=== PATIENT | female | born 1945 | race Caucasian/White ===

== ENCOUNTER → 2016-11-30 | Outpatient (CLI) | payer OTHER ==
[~2016-11-30] MED LIST: ASPEC325 PO; CHOL100027 PO; ESTR0.3T PO; FENO145T26 PO; FSMUNK PO; GLC/500 PO; INSDGI SC; LISI-725 PO; NSP/1000 PO
[2016-11-30 12:38] LABS: HEMATOCRIT 42.6 % (37-47); MEAN CELL VOLUME 88.2 fL (80-100); MEAN CORPUSCULAR HEMOGLOBIN 31.1 pg (25-34); MEAN CORPUSCULAR HGB CONC 35.2 g/dl (32-36); MEAN PLATELET VOLUME 11.4 fL (7.4-10.4); PLATELET COUNT 273 K/uL (130-400); RED BLOOD COUNT 4.83 M/uL (4.2-5.4); WHITE BLOOD COUNT 5.21 K/uL (4.8-10.8)
[2016-11-30 12:52] LABS: ALT/SGPT 21 U/L (12-78); AST/SGOT 15 U/L (15-37); BLOOD UREA NITROGEN 20 mg/dl (7-18); BUN/CREATININE RATIO 18.6 (10-20); CALCIUM 9.6 mg/dl (8.5-10.1); CARBON DIOXIDE 28 mmol/L (21-32); CHLORIDE 108 mmol/L (98-107); GLUCOSE 89 mg/dl (70-99); POTASSIUM 3.7 mmol/L (3.5-5.1); SODIUM 143 mmol/L (136-145)
[2016-11-30 13:03] LABS: ALB/GLOB RATIO 1.1 (0.9-2); ALKALINE PHOSPHATASE 44 U/L (45-117); CHOLESTEROL 112 mg/dl (0-200); CHOLESTEROL/HDL RATIO 1.9; HDL CHOLESTEROL 58 mg/dl; LDL CHOLESTEROL CALCULATED 42 mg/dl; TRIGLYCERIDES 59 mg/dl (0-150); VERY LOW DENSITY LIPOPROT CALC 12 mg/dl
[2016-11-30 13:32] LABS: ESTIMATED AVERAGE GLUCOSE 103 mg/dl; HA1C FLAG Normal (Normal)
== END | disposition home or self-care (01) ==
LOC: C.LABBFT 09:36
PROVIDERS: ATTEND Internal Medicine
DX: E11.9 Type 2 diabetes mellitus without complications (principal)

== ENCOUNTER → 2017-10-08 | Outpatient (CLI) | payer OTHER ==
--- NOTE | 2017-10-08 15:37 | MAMMOGRAPHY REPORT ---
BILATERAL DIGITAL SCREENING MAMMOGRAM WITH CAD: 10/08/2017 CLINICAL HISTORY: Routine screening. Patient has no complaints. TECHNIQUE: Current study was also evaluated with a Computer Aided Detection (CAD) system. Bilateral CC and MLO views were obtained. COMPARISON: Comparison is made to exams dated: 10/02/2016 mammogram, 04/03/2016 ultrasound, 04/03/2016 ma mmogram, 09/20/2015 mammogram, 08/24/2014 mammogram, and 08/11/2013 mammogram - [facility] enter. BREAST COMPOSITION: There are scattered areas of fibroglandular density in both breasts. FINDINGS: No suspicious masses, calcifications, or areas of architectural distortion are noted in ei ther breast. There has been no significant interval change compared to prior exams. Scattered bilater al benign-appearing calcifications are not significantly changed. Small round 4 mm mass in the left lower outer quadrant is smaller compared to the 2016 exam and was shown to represent a benign cyst on a prior ultrasound exam. IMPRESSION: ACR BI-RADS CATEGORY 2: BENIGN There is no mammographic evidence of malignancy. A 1 year screening mammogram is recommended. The pa tient will receive written notification of the results. Approximately 10% of breast cancers are not detected with mammography. A negative mammographic report should not delay biopsy if a clinically suggestive mass is present. Anusha Mcfarlane M.D. /:10/08/2017 13:56:16 [employer] Operator: Romy GRANADOS)(Roxanna), [facility] letter sent: Normal 1/2 BI-RADS Code: ACR BI-RADS Category 2: Benign
== END | disposition home or self-care (01) ==
LOC: C.MAMM 08:54
PROVIDERS: ATTEND Physician Assistant
DX: Z12.31 Encounter for screening mammogram for malignant neoplasm of breast (principal)

== ENCOUNTER 2022-12-28 16:33 | Inpatient (IN) ==
--- NOTE | 2022-12-28 16:42 | ED Triage Note ---
Date of Service December 28, 2022 History of Present Illness This patient was briefly evaluated while in triage. An abbreviated physical exam was performed. This patient is a 77-year-old Female with past medical history of type 2 DM who presents to the ED for evaluation of tachycardia. Was at PCP office for a cough and was found to have fast, irregular pulse. Coughing for the past week, feeling a bit short of breath with this. Denies chest pain, nausea, vomiting, dizziness, syncope. No fevers or chills. Physical Exam CONSTITUTIONAL: No acute distress. Well appearing. RESPIRATORY: Nonlabored breathing. Clear to auscultation bilaterally. Equal expansion bilaterally. CARDIOVASCULAR: Tachycardic rate, irregular rhythm with no murmurs, rubs or gallops. Normal peripheral perfusion. No peripheral edema. GASTROINTESTINAL: Soft, nontender MUSCULOSKELETAL: No calf tenderness or swelling NEUROLOGIC: Alert and oriented X 4 with normal affect. Initial orders for labs and / or imaging were placed and patient was placed in the waiting area until a bed is available. Please see further documentation for the full ED course. MDM / Impression Impression Impression: Pulmonary embolism, New onset atrial fibrillation : Pulmonary embolism Qualifiers: Pulmonary embolism type: unspecified Chronicity: acute Acute cor pulmonale presence: without acute cor pulmonale Qualified Code(s): I26.99 - Other pulmonary embolism without acute cor pulmonale
[2022-12-28] MEDS ORDERED: ASPIRIN CHEW 324 MG PO STA (16:56)
[2022-12-28] MEDS ORDERED: dilTIAZem HCl 5 MG/ML 5 ML VIAL IV ONE (16:56)
[2022-12-28] MEDS ORDERED: SODIUM CHLORIDE 0.9% 1000ML 1,000 ML IV STA (16:56)
[2022-12-28] MEDS ORDERED: dilTIAZem HCl 5 MG/ML 5 ML VIAL IV STA (16:56)
[2022-12-28] MEDS ORDERED: STAT IV Infusion **Titration per Protocol STA (17:00)
[2022-12-28] MEDS ORDERED: dilTIAZem HCL 125 MG in DEXTROSE 5% 100 ML IV SCH (17:00)
[2022-12-28 17:23] LABS: Basophils # (auto) 0.06 K/uL (0-0.2); Basophils % (auto) 0.8 %; Eosinophils # (auto) 0.14 K/uL (0-0.50); Eosinophils % (auto) 1.8 %; Hematocrit (blood only) 36.3 % (37.0-47.0); Hemoglobin 11.4 g/dl (12.0-16.0); Immature Granulocytes # (auto) 0.02 K/uL (0.01-0.20); Immature Granulocytes % (auto) 0.3 %; Lymphocytes % (auto) 19.2 %; Mean Corpuscular Hemoglobin 25.1 pg (25.0-34.0); Mean Corpuscular Hgb Conc 31.4 g/dL (32.0-36.0); Mean Corpuscular Volume 79.8 fL (80.0-100.0); Mean Platelet Volume 10.9 fL (9.4-12.4); Monocytes # (auto) 0.91 K/uL (0.11-0.59); Monocytes % (auto) 11.7 %; Neutrophils # (auto) 5.18 K/uL (1.40-6.50); Neutrophils % (auto) 66.2 %; Platelet Count 385 K/uL (130-400); RDW Coefficient of Variation 14.4 % (11.5-14.5); RDW Standard Deviation 41.9 fL (36.4-46.3); Red Blood Count 4.55 M/uL (4.20-5.40); White Blood Count 7.81 K/ul (4.8-10.8)
--- NOTE | 2022-12-28 17:28 | XRay Report ---
SINGLE VIEW CHEST CLINICAL HISTORY: Cough and dyspnea. FINDINGS: An AP, portable, upright chest radiograph is compared to study dated 08/03/2014. The heart is enlarged noting atherosclerotic calcification of the thoracic aorta. The pulmonary vasculature is no ncongested. Chronic interstitial thickening is similar to previous. The lungs and pleural spaces are clear noting mild bibasilar atelectasis. No pneumothorax is seen. The skeletal structures are osteope nadira. The bony thorax is grossly intact. Arthritic change is seen in the shoulders. IMPRESSION: Cardiomegaly with now active disease in the chest. ACT 112: Negative or not required by law. Electronically signed by: Ricki Gonzales M.D. 12/28/2022 5:27 PM
[2022-12-28 17:38] LABS: Albumin Globulin Ratio 1.4 (0.9-2); Albumin Level 4.4 gm/dl (3.4-5.0); BUN Creatinine Ratio 17.1 (10-20); Bilirubin,Total 0.4 mg/dl (0.2-1.0); Calcium 9.3 mg/dl (8.5-10.1); Creatinine Clr Calc Pharmacy 43.4 ml/min; Est GFR (African American) 58.5 ml/min; Est GFR (Non-African American) 50.5 ml/min; Globulin 3.2 gm/dl (2.5-4.0); INR 1.1 (0.9-1.1); Partial Thromboplastin Ratio 0.9; Partial Thromboplastin Time 23.6 Seconds (21.0-31.0); Potassium 3.9 mmol/L (3.5-5.1); Prothrombin Time 11.8 Seconds (9.0-12.0); Total Protein 7.6 gm/dl (6.0-8.3)
[2022-12-28 17:45] LABS: Troponin I High Sensitivity 9.3 pg/ml (0-14)
[2022-12-28 17:57] LABS: Magnesium 1.7 mg/dl (1.7-2.4)
[2022-12-28] MEDS ORDERED: OPTIRAY 320 500ml IV ONE (17:58)
--- NOTE | 2022-12-28 18:15 | CT Scan Report ---
CT ANGIOGRAM OF THE CHEST CLINICAL HISTORY: Tachycardia. Cough COMPARISON STUDY: Chest x-ray dated 12/28/2022. TECHNIQUE: Following the IV administration of 113 cc of Optiray 320, CT angiogram of the chest was pe rformed from the upper abdomen to the thoracic inlet utilizing the pulmonary embolus protocol. Images are reviewed in the axial, sagittal, and coronal planes. 3-D MIPS images are created and assessed. T he patient's IV infiltrated during the examination. A dose lowering technique was utilized adhering to the principles of ALARA. CT DOSE: 319.37 mGy.cm FINDINGS: Thyroid: Normal in size and heterogeneous in attenuation. Thoracic aorta: There is mild atherosclerotic calcification of the thoracic aorta, which is normal in caliber and demonstrates standard 3-vessel arch anatomy. No dissection is seen. Pulmonary vasculature: The pulmonary trunk is normal in caliber. There is thrombus within the right u pper lobe pulmonary artery extending into segmental and subsegmental branches. There are also segment al and subsegmental pulmonary emboli within branches the right lower lobe pulmonary artery. Heart: The heart is enlarged and without pericardial effusion. There are coronary artery calcificatio ns. Lungs and pleural spaces: There is no airspace consolidation or pleural effusion. The trachea and ellen tral airways are clear. Foci of parenchymal scarring are seen throughout both lungs. A 3 mm right low er lobe pulmonary nodule is seen on image #133. A 3 mm nodule in the lingula seen on image #166. Thes e are of low suspicion. Mediastinum: There is no mediastinal lymphadenopathy. Mary: Clear. Axillae: There is no axillary lymphadenopathy. Upper abdomen: There is a small to moderate hiatal hernia. The liver is steatotic. Skeletal structures: The skeletal structures are osteopenic. Degenerative change and hyperkyphosis is noted in the thoracic spine. Arthritic change is seen in the shoulders. No lytic or blastic bony les ions are seen. Soft tissues: A left breast lesion is partially visualized and measures up to 11 mm as seen on image #122. IMPRESSION: 1. Right upper and lower lobe pulmonary emboli as above. 2. There is an 11 mm lesion partially visualized in the left breast. This is not well assessed by CT and mammographic correlation is recommended. 3. There is no airspace consolidation or pleural effusion. 4. Cardiomegaly. 5. Additional findings as above. ACT 112: Positive. There are findings on this exam that require communication between the performing entity and the patient following Patient Test Result Information Act ([place] Act 112) guidelines. Electronically signed by: Ricki Gonzales M.D. 12/28/2022 6:13 PM
[2022-12-28] MEDS ORDERED: Heparin IV Adult Wt-Based Standard WITH Bolus Protocol IV STA (18:22)
[2022-12-28] MEDS ORDERED: HEPARIN SOD (PORCINE) 1000 UNIT/ML IV ONE ×2 (18:37→19:15)
[2022-12-28] MEDS ORDERED: ONDANSETRON INJ 2 MG/ML 2 ML VIAL IV PRN (18:50)
[2022-12-28] MEDS ORDERED: POLYETHYLENE (MIRALAX) 17 GM PACK PO PRN (18:50)
[2022-12-28] MEDS ORDERED: MAGNESIUM HYDROXIDE SUSP 30 ML UDC PO PRN (18:50)
[2022-12-28] MEDS ORDERED: ACETAMINOPHEN 325 MG TAB PO PRN (18:50)
[2022-12-28] MEDS ORDERED: ALUMINUM/MAGNESIUM SUSP 30 ML UDC PO PRN (18:50)
--- NOTE | 2022-12-28 19:08 | History & Physical Report ---
Date of Service December 28, 2022 Assessment & Plan (1) Pulmonary embolism: Plan: -continue heparin drip (2) New onset atrial fibrillation: Plan: -HR improved after cardizem 20mg IV -continue heparin drip -start metoprolol 12.5mg BID -check TTE -consult Cardiology (3) Breast lesion: Plan: -seen incidentally on CTA chest -will need outpatient mammogram (4) URI (upper respiratory infection): Plan: -Covid negative -symptomatic support Plan Chronic Conditions HTN- continue lisinopril 40mg daily, amlodipine 10mg daily with hold parameters HLD- continue fenofibrate Osteoporosis- continue vitamin D, hold alendronate Admitted as inpatient. I anticipate she will need at least 2 midnight stay for further management History of Present Illness Chief Complaint: cough, congestion Primary Care Provider: Arlet Hernandez DO Ms Cris Kumar is a 77 year old female with history of HLD, HTN and diet controlled diabetes sent to the ER today from her PCP's office after she presented there with cough, congestion and found to be in new onset atrial fibrillation. In the office, her HR was 110s and upon arrival to the ER HR 120-160s. Which improved to 100s after administration of diltiazem 20mg IV. CXR shows cardiomegaly but without active disease CTA chest shows RUL and RLL PE, a partially imaged 11mm left breast lesion, cardiomegaly and coronary calcifications. Patient has been in her usual state of health other than a dry, non productive cough for the past several days. Denies fever/chills, nausea/vomiting, weakness, chest pain. ER course- Diltiazem 20mg IV, heparin drip bolus and maintenance, 1L NSS, aspirin 324mg PMHx- HTN, HLD, Diet controlled DM PSHx- left knee surgery, colon surgery (patient describes having had a colovesical fistula repair) SHx- denies alcohol, drugs, smoking FHx- mother had [place] Allergies Allergy/AdvReac Type Severity Reaction Status Date / Time house dust Allergy Intermediate SNEEZING, Verified 12/28/22 18:42 CONGESTION pollen extracts Allergy Intermediate SNEEZING, Verified 12/28/22 18:42 CONGESTION betamethasone AdvReac Severe ELEVATED Verified 12/28/22 18:42 BLOOD SUGAR Home Medications Medication Instructions Recorded Confirmed Type alendronate 70 mg tablet 70 mg PO WK 12/28/22 12/28/22 History amlodipine 10 mg tablet 10 mg PO QAM 12/28/22 12/28/22 History amoxicillin 500 mg tablet 2,000 mg PO DIRECTED PRN PRIOR 12/28/22 12/28/22 History TO PROCEDURES aspirin 81 mg tablet,delayed 81 mg PO HS 12/28/22 12/28/22 History release cholecalciferol (vitamin D3) 125 125 mcg PO HS 12/28/22 12/28/22 History mcg (5,000 unit) tablet (Vitamin D3) fenofibrate nanocrystallized 145 145 mg PO QDD 12/28/22 12/28/22 History mg tablet fluticasone propionate 50 2 spray intranasal QAM 12/28/22 12/28/22 History mcg/actuation nasal spray,suspension lisinopril 40 mg tablet 40 mg PO QAM 12/28/22 12/28/22 History potassium chloride 20 mEq 20 meq PO QDL 12/28/22 12/28/22 History tablet,extended release Past Med/Surg History Medical History Diabetes HLD (hyperlipidemia) HTN (hypertension) Social History Feels Safe at Home: Yes Review of Systems Review of Systems: As above in HPI. Remaining ROS otherwise negative Physical Exam Physical Exam: Appears well nourished, no acute distress, pleasant and comfortable ENMT: No sinus tenderness, normocephalic, atraumatic Respiratory: No wheezing/rhonchi/rales, breathing comfortably on room air Cardiovascular: Irregular, HR 100s on telemetry, no murmurs/rubs Gastrointestinal (Abdomen): soft, non tender, non distended Musculoskeletal: No edema, no cyanosis or clubbing Neurologic: awake, alert, spontaneously moving extremities Results & Data Results & Data ([facility]) Vital Signs (Past 12 Hours) Vital Signs Temp Pulse Pulse Resp BP BP Pulse Ox 12/28/22 18:36 108 H 20 141/91 H 96 12/28/22 17:22 97 12/28/22 17:07 88 22 98 12/28/22 17:07 86 22 144/73 H 98 12/28/22 16:39 37.2 C 119 H 14 164/90 H 98 O2 Del Method 12/28/22 18:36 Room Air 12/28/22 17:22 Room Air 12/28/22 17:07 Room Air 12/28/22 17:07 Room Air 12/28/22 16:39 Room Air Code Status & VTE Plan VTE Prophylaxis Plan VTE Prophylaxis will be ordered: Yes
[2022-12-28] MEDS: HEPARIN SODIUM/DEXTROSE 25,000 UNITS/500 ML BAG IV SCH (19:10)
--- NOTE | 2022-12-28 19:21 | Emergency Department Note ---
History of Present Illness General Chief Complaint: Tachycardia Stated Complaint: REF BY KAREN,Slime FIB, ABNORMAL LABS Time Seen by Provider: 12/28/22 16:56 History of Present Illness Provider Complaint: + cough, + rhinorrhea and + nasal congestion Onset (ago): 1 week(s) Able to tolerate fluids by mouth: Yes Associated symptoms: no fever, no chills, no stiff neck, no chest pain, no shortness of breath, no abdominal pain, no nausea, no vomiting or no diarrhea HPI Narrative: Patient states she went to her PCPs office where she was found to have an elevated heart rate and irregular rhythm so she was referred to the emergency department. Patient does not have any history of arrhythmias or being on blood thinners. Home Medications Medication Instructions Recorded Confirmed Type alendronate 70 mg tablet 70 mg PO WK 12/28/22 12/28/22 History amlodipine 10 mg tablet 10 mg PO QAM 12/28/22 12/28/22 History amoxicillin 500 mg tablet 2,000 mg PO DIRECTED PRN PRIOR 12/28/22 12/28/22 History TO PROCEDURES aspirin 81 mg tablet,delayed 81 mg PO HS 12/28/22 12/28/22 History release cholecalciferol (vitamin D3) 125 125 mcg PO HS 12/28/22 12/28/22 History mcg (5,000 unit) tablet (Vitamin D3) fenofibrate nanocrystallized 145 145 mg PO QDD 12/28/22 12/28/22 History mg tablet fluticasone propionate 50 2 spray intranasal QAM 12/28/22 12/28/22 History mcg/actuation nasal spray,suspension lisinopril 40 mg tablet 40 mg PO QAM 12/28/22 12/28/22 History potassium chloride 20 mEq 20 meq PO QDL 12/28/22 12/28/22 History tablet,extended release Allergies Allergy/AdvReac Type Severity Reaction Status Date / Time house dust Allergy Intermediate SNEEZING, Verified 12/28/22 18:42 CONGESTION pollen extracts Allergy Intermediate SNEEZING, Verified 12/28/22 18:42 CONGESTION betamethasone AdvReac Severe ELEVATED Verified 12/28/22 18:42 BLOOD SUGAR Past Med/Surg History Medical History Diabetes HLD (hyperlipidemia) HTN (hypertension) Social History Feels Safe at Home: Yes Physical Exam Vital Signs: Vital Signs - 24 hr 12/28/22 16:39 12/28/22 17:07 12/28/22 17:07 Temperature 37.2 C Temperature Source Temporal Artery Sc an Pulse Rate 119 H 88 Pulse Rate [Apical ] 86 Pulse Rhythm Irregular Irregular Pulse Rhythm [Apic al] Irregular Respiratory Rate 14 22 22 Respiratory Effort / Characteristics Non-Labored Sponta neous Respiratory Depth Normal Respiratory Patter n Regular Blood Pressure 164/90 H Blood Pressure [Le ft Arm] 144/73 H Blood Pressure Galina n 114 Blood Pressure Galina n [Left Arm] 96 Blood Pressure Pos ition [Left Arm] Pulse Oximetry 98 98 98 Oxygen Delivery Me thod Room Air Room Air Room Air Sepsis Recent Feve r Within 48 Hours No Sepsis New/Unexpla ined Change in Men jason Status No Sepsis Action Take n by Nursing No Action Required 12/28/22 17:22 12/28/22 18:36 Temperature Temperature Source Pulse Rate Pulse Rate [Apical ] 108 H Pulse Rhythm Pulse Rhythm [Apic al] Irregular Respiratory Rate 20 Respiratory Effort / Characteristics Non-Labored Sponta neous Respiratory Depth Normal Respiratory Patter n Blood Pressure Blood Pressure [Le ft Arm] 141/91 H Blood Pressure Galina n Blood Pressure Galina n [Left Arm] 107 Blood Pressure Pos ition [Left Arm] Lying Pulse Oximetry 97 96 Oxygen Delivery Me thod Room Air Room Air Sepsis Recent Feve r Within 48 Hours Sepsis New/Unexpla ined Change in Men jason Status Sepsis Action Take n by Nursing Physical Exam: Physical Exam GENERAL: He is oriented to person, place, and time. He appears well-developed and well-nourished. HENT: Exam performed. - Head: Normocephalic and atraumatic. EYES: Conjunctivae and EOM are normal. Right eye exhibits no discharge. Left eye exhibits no discharge. No scleral icterus. NECK: Normal range of motion. Neck supple. No JVD present. CV: Tachycardic rate, irregular rhythm, normal heart sounds and intact distal pulses. There is no peripheral edema. Palpable radial pulses bue. PULM/CHEST: Effort normal and breath sounds normal. No respiratory distress. No stridor. He has no wheezes. He has no rales. ABD: The abdomen is soft. There is no tenderness. NEURO: Motor and sensation grossly intact. SKIN: Skin is warm and dry. He is not diaphoretic. PSYCH: He has a normal mood and affect. Behavior is normal. Judgment and thought content normal. Course Course 1655: The patient was evaluated in room C1. A complete history and physical exam was performed Cardiac monitoring: An order was placed for continuous cardiac monitoring. The monitor shows a rate of 130-160 with atrial fibrilation rhythm Patient was found to be in A. fib RVR on the phototypesetting equipment monitor. Large-bore IV access was obtained. Patient was given Cardizem 20 mg IV push which did improve her ventricular rate to below 100 patient remained in atrial fibrillation. Labs and imaging will be sent. Patient does take conjugated estrogens will obtain CT of the chest given her A. fib RVR also. 1829: Vital signs stable. Patient's heart rate has remained within normal limits without Cardizem drip at this time. CTA of the chest shows pulmonary emboli. Patient will be started on a heparin. Troponin within normal limits lipase within normal limits white blood cell count and hemoglobin within normal limits. [facility]. Administered Medications Heparin Sodium (Porcine) (Heparin Sod (Porcine) 1000 Unit/Ml) 5,000 units IV NOW ONE Stop: 12/28/22 19:16 Last Admin: 12/28/22 19:09 Dose: 5,000 units Documented By: BHAVNA Co-signed By: YAYA Heparin Sodium/Dextrose (Heparin Sodium/Dextrose) 25,000 units in 500 mls @ 23 mls/hr IV .[id number] [facility]; Protocol Stop: 01/27/23 18:44 Last Admin: 12/28/22 19:10 Dose: 1,150 units/hr, 23 mls/hr Documented By: BHAVNA Co-signed By: YAYA Discontinued Medications Aspirin (Aspirin Chew 324 Mg) 324 mg PO NOW STA Stop: 12/28/22 16:57 Last Admin: 12/28/22 17:14 Dose: 324 mg Documented By: BHAVNA Diltiazem HCl (Diltiazem Hcl 5 Mg/Ml 5 Ml Vial) Confirm Administered Dose 25 mg IV .STK-MED ONE Stop: 12/28/22 16:57 Last Admin: 12/28/22 17:14 Dose: Not Given Documented By: BHAVNA Diltiazem HCl (Diltiazem Hcl 5 Mg/Ml 5 Ml Vial) 20 mg IV NOW STA Stop: 12/28/22 16:57 Last Admin: 12/28/22 17:14 Dose: 20 mg Documented By: BHAVNA Co-signed By: CECILIA Sodium Chloride (Nss 1000ml) 1,000 mls @ 999 mls/hr IV .Q1H1M STA Stop: 12/28/22 17:56 Last Infusion: 12/28/22 18:42 Dose: 0 mls/hr Documented By: Admin: 12/28/22 17:13 Dose: 999 mls/hr Documented By: BHAVNA Ioversol (Optiray 320 500ml) 113 ml IV ONCE ONE Stop: 12/28/22 17:59 Last Admin: 12/28/22 17:58 Dose: 113 ml Documented By: RASHID Medical Decision Making Laboratory Data Attestation: I reviewed the patient's lab results. 12/28/22 16:33 12/28/22 16:33 Lab Results 12/28/22 12/28/22 12/28/22 Range/Units 16:33 16:33 16:33 WBC 7.81 (4.8-10.8) K/ul RBC 4.55 (4.20-5.40) M/uL Hgb 11.4 L (12.0-16.0) g/dl Hct 36.3 L (37.0-47.0) % MCV 79.8 L (80.0-100.0) fL MCH 25.1 (25.0-34.0) pg MCHC 31.4 L (32.0-36.0) g/dL RDW Std Deviation 41.9 (36.4-46.3) fL RDW Coeff of [place] 14.4 (11.5-14.5) % Plt Count 385 (130-400) K/uL MPV 10.9 (9.4-12.4) fL Immature Gran % (Auto) 0.3 % Neut % (Auto) 66.2 % Lymph % (Auto) 19.2 % [place] % (Auto) 11.7 % Eos % (Auto) 1.8 % Baso % (Auto) 0.8 % Neut # (Auto) 5.18 (1.40-6.50) K/uL Lymph # (Auto) 1.50 (1.2-3.4) K/uL [place] # (Auto) 0.91 H (0.11-0.59) K/uL Eos # (Auto) 0.14 (0-0.50) K/uL Baso # (Auto) 0.06 (0-0.2) K/uL Immature Gran # (Auto) 0.02 (0.01-0.20) K/uL PT 11.8 (9.0-12.0) Seconds INR 1.1 (0.9-1.1) APTT 23.6 (21.0-31.0) Seconds PTT Ratio 0.9 Sodium 142 (136-145) mmol/L Potassium 3.9 (3.5-5.1) mmol/L Chloride 107 (98-107) mmol/L Carbon Dioxide 28 (21-32) mmol/L Anion Gap 7 (3-11) BUN 18 (6-23) mg/dl Creatinine 1.05 (0.6-1.2) mg/dl Est Cr Clr Drug Dosing 43.4 ml/min Est GFR ( Amer) 58.5 ml/min Est GFR (Non-Af Amer) 50.5 ml/min BUN/Creatinine Ratio 17.1 (10-20) Glucose 115 H (70-99(Fasting)) mg/dl Calcium 9.3 (8.5-10.1) mg/dl Magnesium (1.7-2.4) mg/dl Total Bilirubin 0.4 (0.2-1.0) mg/dl AST 19 (13-39) U/L ALT 9 (7-52) U/L Alkaline Phosphatase 29 L (34-104) U/L Troponin I High Sens 9.3 (0-14) pg/ml Total Protein 7.6 (6.0-8.3) gm/dl Albumin 4.4 (3.4-5.0) gm/dl Globulin 3.2 (2.5-4.0) gm/dl Albumin/Globulin Ratio 1.4 (0.9-2) Lipase 57 (11-82) U/L SARS-CoV-2, RNA, NAAT (NEGATIVE) 12/28/22 12/28/22 Range/Units 17:11 17:20 WBC (4.8-10.8) K/ul RBC (4.20-5.40) M/uL Hgb (12.0-16.0) g/dl Hct (37.0-47.0) % MCV (80.0-100.0) fL MCH (25.0-34.0) pg MCHC (32.0-36.0) g/dL RDW Std Deviation (36.4-46.3) fL RDW Coeff of [place] (11.5-14.5) % Plt Count (130-400) K/uL MPV (9.4-12.4) fL Immature Gran % (Auto) % Neut % (Auto) % Lymph % (Auto) % [place] % (Auto) % Eos % (Auto) % Baso % (Auto) % Neut # (Auto) (1.40-6.50) K/uL Lymph # (Auto) (1.2-3.4) K/uL [place] # (Auto) (0.11-0.59) K/uL Eos # (Auto) (0-0.50) K/uL Baso # (Auto) (0-0.2) K/uL Immature Gran # (Auto) (0.01-0.20) K/uL PT (9.0-12.0) Seconds INR (0.9-1.1) APTT (21.0-31.0) Seconds PTT Ratio Sodium (136-145) mmol/L Potassium (3.5-5.1) mmol/L Chloride (98-107) mmol/L Carbon Dioxide (21-32) mmol/L Anion Gap (3-11) BUN (6-23) mg/dl Creatinine (0.6-1.2) mg/dl Est Cr Clr Drug Dosing ml/min Est GFR ( Amer) ml/min Est GFR (Non-Af Amer) ml/min BUN/Creatinine Ratio (10-20) Glucose (70-99(Fasting)) mg/dl Calcium (8.5-10.1) mg/dl Magnesium 1.7 (1.7-2.4) mg/dl Total Bilirubin (0.2-1.0) mg/dl AST (13-39) U/L ALT (7-52) U/L Alkaline Phosphatase (34-104) U/L Troponin I High Sens 8.0 (0-14) pg/ml Total Protein (6.0-8.3) gm/dl Albumin (3.4-5.0) gm/dl Globulin (2.5-4.0) gm/dl Albumin/Globulin Ratio (0.9-2) Lipase (11-82) U/L SARS-CoV-2, RNA, NAAT NEGATIVE (NEGATIVE) Imaging Data Radiologist's Impression: Chest X-Ray 12/28/22 16:44 SINGLE VIEW CHEST CLINICAL HISTORY: Cough and dyspnea. FINDINGS: An AP, portable, upright chest radiograph is compared to study dated 08/03/2014. The heart is enlarged noting atherosclerotic calcification of the thoracic aorta. The pulmonary vasculature is noncongested. Chronic interstitial thickening is similar to previous. The lungs and pleural spaces are clear noting mild bibasilar atelectasis. No pneumothorax is seen. The skeletal structures are osteopenic. The bony thorax is grossly intact. Arthritic change is seen in the shoulders. IMPRESSION: Cardiomegaly with now active disease in the chest. ACT 112: Negative or not required by law. Electronically signed by: Ricki Gonzales M.D. 12/28/2022 5:27 PM Chest CTA 12/28/22 16:58 CT ANGIOGRAM OF THE CHEST CLINICAL HISTORY: Tachycardia. Cough COMPARISON STUDY: Chest x-ray dated 12/28/2022. TECHNIQUE: Following the IV administration of 113 cc of Optiray 320, CT angiogram of the chest was performed from the upper abdomen to the thoracic inlet utilizing the pulmonary embolus protocol. Images are reviewed in the axial, sagittal, and coronal planes. 3-D MIPS images are created and assessed. The patient's IV infiltrated during the examination. A dose lowering technique was utilized adhering to the principles of ALARA. CT DOSE: 319.37 mGy.cm FINDINGS: Thyroid: Normal in size and heterogeneous in attenuation. Thoracic aorta: There is mild atherosclerotic calcification of the thoracic aorta, which is normal in caliber and demonstrates standard 3-vessel arch anatomy. No dissection is seen. Pulmonary vasculature: The pulmonary trunk is normal in caliber. There is thrombus within the right upper lobe pulmonary artery extending into segmental and subsegmental branches. There are also segmental and subsegmental pulmonary emboli within branches the right lower lobe pulmonary artery. Heart: The heart is enlarged and without pericardial effusion. There are coronary artery calcifications. Lungs and pleural spaces: There is no airspace consolidation or pleural effusion. The trachea and central airways are clear. Foci of parenchymal scarring are seen throughout both lungs. A 3 mm right lower lobe pulmonary nodule is seen on image #133. A 3 mm nodule in the lingula seen on image #166. These are of low suspicion. Mediastinum: There is no mediastinal lymphadenopathy. Mary: Clear. Axillae: There is no axillary lymphadenopathy. Upper abdomen: There is a small to moderate hiatal hernia. The liver is steatotic. Skeletal structures: The skeletal structures are osteopenic. Degenerative change and hyperkyphosis is noted in the thoracic spine. Arthritic change is seen in the shoulders. No lytic or blastic bony lesions are seen. Soft tissues: A left breast lesion is partially visualized and measures up to 11 mm as seen on image #122. IMPRESSION: 1. Right upper and lower lobe pulmonary emboli as above. 2. There is an 11 mm lesion partially visualized in the left breast. This is not well assessed by CT and mammographic correlation is recommended. 3. There is no airspace consolidation or pleural effusion. 4. Cardiomegaly. 5. Additional findings as above. ACT 112: Positive. There are findings on this exam that require communication between the performing entity and the patient following Patient Test Result Information Act ([place] Act 112) guidelines. Electronically signed by: Ricki Gonzales M.D. 12/28/2022 6:13 PM ECG Data Additional Comments: EKG #1 at 1648: Atrial fibrillation with a rate of 109. QRS and QTc intervals within normal limits. No ST elevation or ST depression. EKG #2 at 1700: Atrial fibrillation with a rate of 92. QRS and QTc intervals within normal limits. No ST elevation or ST depression. MDM Narrative 1656: The patient was evaluated in room C1. A complete history and physical exam was performed Cardiac monitoring: An order was placed for continuous cardiac monitoring. The monitor shows a rate of 130-160 with atrial fibrilation rhythm Patient was found to be in A. fib RVR on the phototypesetting equipment monitor. Large-bore IV access was obtained. Patient was given Cardizem 20 mg IV push which did improve her ventricular rate to below 100 patient remained in atrial fibrillation. Labs and imaging will be sent. Patient does take conjugated estrogens will obtain CT of the chest given her A. fib RVR also. 1830: Vital signs stable. Patient's heart rate has remained within normal limits without Cardizem drip at this time. CTA of the chest shows pulmonary emboli. Patient will be started on a heparin. Troponin within normal limits lipase within normal limits white blood cell count and hemoglobin within normal limits. [facility] Impression & Plan Pulmonary embolism, New onset atrial fibrillation Critical Care Time Critical Care Time: Yes Total Critical Care Time: 79 I have personally spent greater than 79 minutes of critical care time in the direct management of this patient. This includes bedside care, interpretation of diagnostic studies, and testing, discussion with consultants, patient, and family members, and other required patient management activities. This 79 minutes is in excess of all separately billable procedures. Discharge Plan Visit Data Chief Complaint: Tachycardia Stated Complaint: REF BY DOC,A FIB, ABNORMAL LABS ED Provider: Reuben Quezada Discharge Problem: Pulmonary embolism, New onset atrial fibrillation Patient Disposition: Admitted As Inpatient Forms Stand Alone Forms: My [facility] Prescriptions Prescriptions: No Action alendronate 70 mg tablet 70 mg PO WK Rx Instructions: TAKES ON SUNDAYS aspirin 81 mg Tablet,Delayed Release (Dr/Ec) 81 mg PO HS amlodipine 10 mg tablet 10 mg PO QAM lisinopril 40 mg tablet 40 mg PO QAM fluticasone propionate 50 mcg/actuation spray,suspension 2 spray INTRANASAL QAM fenofibrate nanocrystallized 145 mg tablet 145 mg PO QDD cholecalciferol (vitamin D3) [Vitamin D3] 125 mcg (5,000 unit) Tablet 125 mcg PO HS Rx Instructions: PER [facility] SHOULD BE 2,000 UNITS. potassium chloride 20 mEq tablet extended release 20 meq PO QDL amoxicillin 500 mg tablet 2,000 mg PO DIRECTED PRN (Reason: PRIOR TO PROCEDURES) Rx Instructions: 4 tabs 1 hour prior to procedure Referrals Referrals: Arlet Hernandez DO [Primary Care Provider] -
[2022-12-28 20:12] LABS: Chol HDL Ratio 2.8 (0-5)
[2022-12-28 20:19] LABS: Troponin I High Sensitivity 9.3 pg/ml (0-14)
[2022-12-28 21:38] LABS: Appearance Urine Clear (Clear); Bacteria Urine Automated Negative (Negative); Bilirubin Urine Negative (Negative); Blood Urine Negative (Negative); Cast Urine Automated 0 /lpf (0-5); Color Urine Yellow; Glucose Urine UA Negative (Negative); Ketones Urine Negative (Negative); Leukocyte Esterase Urine Trace (Negative); Nitrite Urine Negative (Negative); Protein Urine Negative (Negative); RBC Urine Automated 0-4 /hpf (0-4); Specific Gravity Urine 1.024 (1.000-1.030); Urobilinogen Urine Negative (Negative)
[2022-12-28] MEDS: METOPROLOL TARTRATE 25 MG TAB PO SCH (22:07)
[2022-12-28] MEDS: ASPIRIN 81 MG ECTAB PO SCH (22:09)
[2022-12-29 03:07] LABS: Partial Thromboplastin Time 55.2 Seconds (21.0-31.0)
[2022-12-29 06:05] LABS: Hematocrit (blood only) 34.9 % (37.0-47.0); Hemoglobin 11.1 g/dl (12.0-16.0); Mean Corpuscular Hemoglobin 25.3 pg (25.0-34.0); Mean Corpuscular Hgb Conc 31.8 g/dL (32.0-36.0); Mean Corpuscular Volume 79.7 fL (80.0-100.0); Mean Platelet Volume 10.9 fL (9.4-12.4); Platelet Count 332 K/uL (130-400); RDW Coefficient of Variation 14.4 % (11.5-14.5); RDW Standard Deviation 41.9 fL (36.4-46.3); Red Blood Count 4.38 M/uL (4.20-5.40); White Blood Count 7.15 K/ul (4.8-10.8)
[2022-12-29 06:21] LABS: BUN Creatinine Ratio 17.5 (10-20); Calcium 8.9 mg/dl (8.5-10.1); Creatinine Clr Calc Pharmacy 56.8 ml/min; Est GFR (African American) 81.3 ml/min; Est GFR (Non-African American) 70.1 ml/min; Magnesium 1.7 mg/dl (1.7-2.4); Potassium 3.5 mmol/L (3.5-5.1)
--- NOTE | 2022-12-29 08:18 | Cardiology Consultation ---
Date of Consultation December 29, 2022 Assessment & Plan (1) New onset atrial fibrillation: (2) Pulmonary embolism: Plan New onset AFIB in the setting of PE. Patient asymptomatic with AFIB. HRs in the 90-110s. -Increase metoprolol tartrate to 12.5 mg q6H, hold for a heart rate less than 60 -Diltiazem gtt discontinued, heart rates generally controlled. -Heparin infusion for stroke prevention as well as PE. Future considerations of transitioning to Eliquis vs Coumadin depending on cost. Will defer to hospitalist team regarding transition. -Borderline hypokalemia noted on lab work- currently 3.5. Potassium goal of 4.0. Will give 20 meq KCL this am. Repeat BMP tomorrow morning. -Further recommendations pending echo results. Case discussed with Dr. Huang- will follow. Supervising Physician Co-Signing Physician Notes Supervising Physician Attestation: I have personally performed a history and physical examination on the patient. I agree with the nurse practitioner's findings and plan as documented with the following additions. Subjective: Patient notes feeling well at present. Still concerned about a cough, has dyspnea on exertion, she especially noticed it when she went to go see her grandchild's basketball game about 2 weeks ago. Telemetry reveals rate controlled atrial fibrillation in the 80s and 90s. Exam: Cardiovascular: Irregular rhythm, no murmurs, no edema Data: CT angiogram with findings of right and left segmental and subsegmental pulmonary emboli, partially visualized 11 mm left breast lesion Echocardiogram performed today and reviewed independently: Mild concentric left ventricular hypertrophy, normal LV wall motion, LVEF 55 to 60%, mild left atrial dilatation, normal right ventricular chamber size and systolic function, mild TR, pulmonary artery pressure mildly elevated, 35-45 mmHg. EKG performed today 12/29/2022 at 10:02 AM: Atrial fibrillation with mildly elevated ventricular response of 107 bpm, lateral repolarization changes noted in leads I and aVL. Assessment and Plan: New onset/newly recognized atrial fibrillation Pulmonary emboli Partially visualized breast mass -Continue low-dose metoprolol, anticoagulation with heparin, with plans to transition to an oral agent. Patient states her is on Coumadin, and she would prefer a direct oral anticoagulant if affordable. -We will need outpatient follow-up of the incidental breast mass especially with regards to consideration of underlying causes of pulmonary embolism. Check lower extremity venous duplex. Marcos Huang DO History of Present Illness Reason for Consultation: New onset A. fib with RVR Requesting Physician: Stephanie [facility] Attending Physician: Nohemi Sheehan MD History of Present Illness 77-year-old female who initially presented to her primary care provider's office yesterday due to a cough and shortness of breath x1 week. EKG was done showing atrial fibrillation with a heart rate of 115 bpm. She was then referred to the emergency department where her heart rates were increased into the 120s to 160s. She was given 20 mg of IV diltiazem, heart rate lowered to 90s. Heparin drip was started. CTA of the chest showed a right upper lobe and right lower lobe PE as well as an 11 mm left breast lesion, cardiomegaly, and coronary calcifications. Blood work this morning showed a stable hemoglobin of 11.1. Platelets 332. Renal function stable. Potassium 3.5. High-sensitivity troponin negative x4. EKG 12/29: Pending Echo 12/29: Pending Patient seen and examined at bedside. Chart and telemetry reviewed. Tele: AFIB 90-110s Upon entrance into the room patient resting comfortably in bed. Denies chest pain, but does have chest "tightness" with deep inspiration. Notes BLACKMAN when walk ing to the bathroom. Asymptomatic with her AFIB, no palpitations, lightheadedness of syncope. Overall feeling improved compared to yesterday. Becomes tearful- helps care for her grandchildren. Doesn't want to have to stop doing that. Also notes that her had AFIB and of a stroke in the past. Past medical history: Hypertension with hypertensive kidney disease, CKD stage III Type 2 diabetes GERD Allergies Allergy/AdvReac Type Severity Reaction Status Date / Time house dust Allergy Intermediate SNEEZING, Verified 12/28/22 18:42 CONGESTION pollen extracts Allergy Intermediate SNEEZING, Verified 12/28/22 18:42 CONGESTION betamethasone AdvReac Severe ELEVATED Verified 12/28/22 18:42 BLOOD SUGAR Home Medications Medication Instructions Recorded Confirmed Type alendronate 70 mg tablet 70 mg PO WK 12/28/22 12/28/22 History amlodipine 10 mg tablet 10 mg PO QAM 12/28/22 12/28/22 History amoxicillin 500 mg tablet 2,000 mg PO DIRECTED PRN PRIOR 12/28/22 12/28/22 History TO PROCEDURES aspirin 81 mg tablet,delayed 81 mg PO HS 12/28/22 12/28/22 History release cholecalciferol (vitamin D3) 125 125 mcg PO HS 12/28/22 12/28/22 History mcg (5,000 unit) tablet (Vitamin D3) fenofibrate nanocrystallized 145 145 mg PO QDD 12/28/22 12/28/22 History mg tablet fluticasone propionate 50 2 spray intranasal QAM 12/28/22 12/28/22 History mcg/actuation nasal spray,suspension lisinopril 40 mg tablet 40 mg PO QAM 12/28/22 12/28/22 History potassium chloride 20 mEq 20 meq PO QDL 12/28/22 12/28/22 History tablet,extended release apixaban 5 mg tablet (Eliquis) 5 mg PO UD #74 tabs 12/29/22 Rx Patient History Medical History Diabetes HLD (hyperlipidemia) HTN (hypertension) Social History Smoking Status: Never smoker Hx Alcohol Use: No Hx Substance Use: No Preferred Language: Italian Communication Ability: Effective Chemical Checker Required: No Beliefs That Will Affect Care: None Current Living Situation: Alone Other Information That Helps Us Care for You: No Feels Safe at Home: Yes Safety Concerns: Feels Safe At This Time Assistive Devices: None Review of Systems Review of Systems: All systems reviewed & are unremarkable except as noted in HPI & below Physical Exam Constitutional: WD/WN, vitals as above no acute distress Eyes: PERRL, conjunctivae normal, anicteric sclerae Neck: normal visual inspection and trachea midline Respiratory: normal respiratory effort, lungs clear to auscultation + cough (dry cough) Auscultation: no rales, no rhonchi and no wheezes Cardiovascular: Rate/Rhythm: regular rate, + tachycardic and + irregularly irregular Heart Sounds: normal S1, normal S2 and + murmur (faint systolic murmur) Vessels: no JVD Extremities: no edema Gastrointestinal (Abdomen): normal bowel sounds, soft, nontender, no hepatosplenomegaly Musculoskeletal: no cyanosis or clubbing, extremities motor strength 5/5 Skin: no rashes, warm and dry Results & Data ([facility]) Vital Signs (Past 12 Hours) Vital Signs Temp Pulse Pulse Resp BP BP Pulse Ox 12/29/22 07:56 36.6 C 91 H 17 146/85 H 93 12/29/22 07:39 101 H 12/29/22 03:20 36.8 C 76 18 129/80 93 12/28/22 23:23 84 12/28/22 23:00 12/28/22 22:47 36.6 C 95 H 18 153/84 H 96 12/28/22 20:30 84 21 94 12/28/22 20:30 146/91 H O2 Del Method 12/29/22 07:56 Room Air 12/29/22 07:39 12/29/22 03:20 Room Air 12/28/22 23:23 12/28/22 23:00 Room Air 12/28/22 22:47 Room Air 12/28/22 20:30 12/28/22 20:30 Laboratory Results Cardiac Enzymes 12/28/22 12/28/22 12/28/22 Range/Units 16:33 17:11 19:37 AST 19 (13-39) U/L Troponin I High Sens 9.3 8.0 9.3 (0-14) pg/ml 12/29/22 Range/Units 00:42 AST (13-39) U/L Troponin I High Sens 11.5 (0-14) pg/ml Coagulation 12/28/22 12/29/22 Range/Units 16:33 01:39 PT 11.8 (9.0-12.0) Seconds APTT 23.6 55.2 H* (21.0-31.0) Seconds Lipids 12/28/22 Range/Units 19:37 Triglycerides 62 (0-150) mg/dl Cholesterol 91 (0-200) mg/dl HDL Cholesterol 32 mg/dl Cholesterol/HDL Ratio 2.8 (0-5) CBC 12/28/22 12/29/22 Range/Units 16:33 05:37 WBC 7.81 7.15 (4.8-10.8) K/ul RBC 4.55 4.38 (4.20-5.40) M/uL Hgb 11.4 L 11.1 L (12.0-16.0) g/dl Hct 36.3 L 34.9 L (37.0-47.0) % Plt Count 385 332 (130-400) K/uL Neut # (Auto) 5.18 (1.40-6.50) K/uL Lymph # (Auto) 1.50 (1.2-3.4) K/uL [place] # (Auto) 0.91 H (0.11-0.59) K/uL Eos # (Auto) 0.14 (0-0.50) K/uL Baso # (Auto) 0.06 (0-0.2) K/uL Comprehensive Metabolic Panel 12/28/22 12/29/22 Range/Units 16:33 05:37 Sodium 142 141 (136-145) mmol/L Potassium 3.9 3.5 (3.5-5.1) mmol/L Chloride 107 111 H (98-107) mmol/L Carbon Dioxide 28 23 (21-32) mmol/L BUN 18 14 (6-23) mg/dl Creatinine 1.05 0.80 (0.6-1.2) mg/dl Glucose 115 H 117 H (70-99(Fasting)) mg/dl Calcium 9.3 8.9 (8.5-10.1) mg/dl AST 19 (13-39) U/L ALT 9 (7-52) U/L Alkaline Phosphatase 29 L (34-104) U/L Total Protein 7.6 (6.0-8.3) gm/dl Albumin 4.4 (3.4-5.0) gm/dl Intake and Output 12/28/22 12/29/22 12/29/22 22:59 06:59 14:59 Intake Total 1000 / 1320 320 / 1320 272.933 / 272.933 Output Total 600 / 600 Balance 1000 / 720 -280 / 720 272.933 / 272.933 Intake: IV 1000 / 1000 272.933 / 272.933 Heparin Sodium/Dextrose 25,000 272.933 / 272.933 units In 500 ml @ 1,150 UNITS/ HR 23 mls/hr IV .[id number] MARIAH Rx #:[id number] Sodium Chloride 0.9% 1000ML 1, 1000 / 1000 000 ml @ 999 mls/hr IV .[id number] STA Rx#:[id number] Oral 320 / 320 Output: Urine 600 / 600 Other: Weight 79.1 kg 79.1 kg Weight Measurement Method Built in [facility] Built in [facility] (1) Pulmonary embolism Acute cor pulmonale presence: without acute cor pulmonale Chronicity: acute Pulmonary embolism type: unspecified Qualified Code(s): I26.99 - Other pulmonary embolism without acute cor pulmonale
[2022-12-29] MEDS ORDERED: POTASSIUM CHLORIDE CRTAB 20 MEQ TABCR PO STA (09:18)
[2022-12-29] MEDS: METOPROLOL TARTRATE 25 MG TAB PO SCH ×4 (09:43→17:17)
[2022-12-29] MEDS: lisinopril 40 MG TAB PO SCH (10:22)
[2022-12-29] MEDS: FLUTICASONE PROPIONATE NA SPR 16 GM BTL SCH (10:22)
[2022-12-29] MEDS: amLODIPine BESYLATE 5 MG TAB PO SCH (10:22)
[2022-12-29] MEDS: PANTOprazole 40 MG TAB PO SCH (10:22)
--- NOTE | 2022-12-29 15:19 | Electrocardiogram Report ---
Test Reason : Blood Pressure : / mmHG Vent. Rate : 092 BPM Atrial Rate : 108 BPM P-R Int : 000 ms QRS Dur : 106 ms QT Int : 352 ms P-R-T Axes : 000 -50 100 degrees QTc Int : 435 ms Atrial fibrillation Left axis deviation Septal infarct (cited on or before 28-DEC-2022) Abnormal ECG When compared with ECG of 28-DEC-2022 16:48, (unconfirmed) QRS axis Shifted left T wave inversion now evident in Lateral leads Confirmed by Dashawn Infante ([id number]) on 12/29/2022 3:19:04 PM Referred By: Arlet Hernandez Confirmed By:Dashawn Infante
--- NOTE | 2022-12-29 15:19 | Electrocardiogram Report ---
Test Reason : Blood Pressure : / mmHG Vent. Rate : 109 BPM Atrial Rate : 153 BPM P-R Int : 000 ms QRS Dur : 100 ms QT Int : 332 ms P-R-T Axes : 000 023 088 degrees QTc Int : 447 ms Atrial fibrillation with rapid ventricular response Low voltage QRS Septal infarct , age undetermined Abnormal ECG When compared with ECG of 03-AUG-2014 15:55, Atrial fibrillation has replaced Sinus rhythm Vent. rate has increased BY 41 BPM Septal infarct is now Present Confirmed by Dashawn Infante ([id number]) on 12/29/2022 3:18:52 PM Referred By: Arlet Hernandez Confirmed By:Dashawn Infante
--- NOTE | 2022-12-29 15:34 | Electrocardiogram Report ---
Test Reason : Blood Pressure : / mmHG Vent. Rate : 107 BPM Atrial Rate : 093 BPM P-R Int : 000 ms QRS Dur : 104 ms QT Int : 346 ms P-R-T Axes : 000 -48 114 degrees QTc Int : 461 ms Atrial fibrillation with rapid ventricular response Left axis deviation Abnormal ECG When compared with ECG of 28-DEC-2022 17:00, (unconfirmed) No significant change was found Confirmed by Dashawn Infante ([id number]) on 12/29/2022 3:33:50 PM Referred By: Arlet Hernandez Confirmed By:Dashawn Infante
--- NOTE | 2022-12-29 16:00 | Hospitalist Progress Note ---
Date of Service December 29, 2022 Assessment & Plan (1) New onset atrial fibrillation: Plan: She was sent to the ER after she was seen from PCP office for cough and congestion and she was found to be in Afib with RVR EKG on admission revealed Afib In the ER she received cardizem 20mg IV bolus then started on IV cardizem drip HR improved and cardizem drip was discontinued ECHO showed no wall motion abnormality with EF 55 to 60 m% Cardiology on board Currently on IV heparin drip Continue metoprolol 12.5 mg BID Keep K above 4 Continue monitor closely in tele (2) Pulmonary embolism: Plan: CTA chest showed Right upper and lower lobe pulmonary emboli Currently on IV heparin drip Discussed anticoagulant choice with patient btw Warfarin and DOAC Pt said that her was on Warfarin that she does not want it and she would prefer the DOAC Major side effect about anticoagulant discussed with patient such intracranial bleeding, GI bleed and other abnormal bleeding Called pharmacy and check the cost for eliquis that will be $15 per month. She said that she would be able to afford it Plan to transition to Eliquis before discharge Continue monitor closely (3) Breast lesion: Plan: Seen incidentally on CTA chest- 11 mm lesion partially visualized in the left breast. Will need outpatient mammogram (4) URI (upper respiratory infection): Plan: Covid negative Continue cough med Plan HTN continue lisinopril 40mg daily, amlodipine 10mg daily with hold parameters HLD- continue fenofibrate Osteoporosis- continue vitamin D, hold alendronate Code status Full code Admission and Anticipated Discharge Date Admission Date: December 28, 2022 Subjective Pt was seen and examined for follow up of Afib/PE Lying in bed with no acute distress with daughter at bedside Pt said that she is having a dry cough She said that when she walked to the bathroom early that she had some SOB She denies any pleuritic chest pain Denies any chest pain, palpitation, dizziness and SOB Review of Systems Review of Systems: All systems reviewed & are unremarkable except as noted in Subjective Physical Exam Physical Exam: General- No acute distress Head- atraumatic Eyes- PERRL, EOMI, ENT- oropharynx clear Neck- supple, no JVD Lungs- clear to auscultation Heart- irregular rhythm Abdomen- normal bowel sounds, soft, nontender Extremities- no calf tenderness Neuro- alert, oriented x 3; PERRL, EOMI; no facial palsy; no dysarthria Skin- warm & dry Results & Data Results & Data ([facility]) Vital Signs (Past 12 Hours) Vital Signs Temp Pulse Pulse Resp BP Pulse Ox O2 Del Method 12/29/22 14:56 242 H 12/29/22 11:55 36.8 C 92 H 17 149/81 H 96 Room Air 12/29/22 07:56 36.6 C 91 H 17 146/85 H 93 Room Air 12/29/22 07:39 101 H (1) Pulmonary embolism Acute cor pulmonale presence: without acute cor pulmonale Chronicity: acute Pulmonary embolism type: unspecified Qualified Code(s): I26.99 - Other pul monary embolism without acute cor pulmonale
[2022-12-29] MEDS: FENOFIBRATE NANOCRYSTALLIZED 145 MG TABLET PO SCH (16:29)
[2022-12-29] MEDS: HEPARIN SODIUM/DEXTROSE 25,000 UNITS/500 ML BAG IV SCH (16:30)
[2022-12-29] MEDS: ASPIRIN 81 MG ECTAB PO SCH (21:09)
[2022-12-29] MEDS: CHOLECALCIFEROL 5,000 UNITS 125 MCG TAB PO SCH (21:09)
[2022-12-30] MEDS: METOPROLOL TARTRATE 25 MG TAB PO SCH ×2 (00:02→06:18)
--- NOTE | 2022-12-30 07:06 | Ultrasound Report ---
ULTRASOUND BILATERAL LOWER EXTREMITY VENOUS CLINICAL HISTORY: Pulmonary embolus COMPARISON STUDY: Left lower extremity venous ultrasound dated 10/29/2014. TECHNIQUE: Real-time, grayscale, and color Doppler sonography of the deep veins of the right and left lower extremity was performed from the inguinal crease to the calf. Compression and augmentation wer e utilized. FINDINGS: Right lower extremity: There is deep venous thrombosis identified in the right calf within one of the posterior tibial veins. The remaining visualized calf vessels are patent. The common femoral, superf icial femoral, and popliteal veins are patent and normally compressible. The greater saphenous vein a nd the profunda femoris vein at the junction with the common femoral vein are clear. Left lower extremity: There is no sonographic evidence of deep venous thrombosis in the left lower ex tremity. The common femoral, superficial femoral, and popliteal veins are patent and normally jarrell sible. The greater saphenous vein and the profunda femoris vein at the junction with the common femor al vein are clear. The visualized calf veins are patent. IMPRESSION: 1. There is deep venous thrombosis identified in the right calf within one of the posterior tibial ve ins. 2. The remaining deep veins of both legs are patent. ACT 112: Negative or not required by law. Electronically signed by: Ricki Gonzales M.D. 12/30/2022 7:05 AM
--- NOTE | 2022-12-30 07:47 | Cardiology Progress Note ---
Date of Service December 30, 2022 Assessment & Plan (1) New onset atrial fibrillation: (2) Pulmonary embolism: Plan New onset AFIB in the setting of PE. Patient asymptomatic with AFIB. HRs in the 90-110s. -Transition metoprolol tartrate 12.5 mg every 6 hours to metoprolol succinate 25 mg BID. -Diltiazem gtt previously discontinued, heart rates generally controlled. -Heparin infusion for stroke prevention as well as PE. Patient prefers to switch to Eliquis as this would be affordable for her- will defer to hospitalist team on transitioning. -Borderline hypokalemia noted on lab work- currently 3.5- 3.7. Potassium goal of 4.0. Will start KCL 20 meq daily. Repeat BMP in the am. Case discussed with Dr. Huang- will follow. Will plan for cardiology follow up as an outpatient in about 4 weeks following discharge. Can consider outpatient zio monitor to assess rate control and AFIB burden. Admission and Anticipated Discharge Date Admission Date: December 28, 2022 Supervising Physician Co-Signing Physician Notes Late entry: Patient had been seen and examined yesterday 12/30/2022. Cardiology attending: I personally performed a history and physical exam. Agree with findings and plan as outlined by JEY Velazquez with additions as noted below. Subjective: Patient states cough better. Exam: Irregular rhythm Impression: DVT, bilateral segmental, subsegmental pulm emboli, rate controlled atrial fibrillation Continue metoprolol. Transition to PE dose Eliquis. Subjective 77-year-old female who initially presented to [facility] emergency department with new onset atrial fibrillation in the setting of pulmonary embolism. Heart rates averaging in the 90s to 100s. Asymptomatic with atrial fibrillation. 12/29: Metoprolol tartrate increased to 12.5 mg every 6. Diltiazem discontinued. Anticoagulated with heparin for stroke prevention as well as pulmonary embo lism. Borderline hypokalemia-potassium supplemented. EchoA. fib with controlled ventricular rate during exam. Mild concentric LVH. No wall motion abnormalities. LVEF 55 to 60%. Mildly dilated left atrium. Mild MR and mild TR. Mild pulmonary hypertension with a pulmonary artery systolic pressure estimated to be around 35 to 45 mmHg. Venous DopplersDVT identified in the right calf within one of the posterior tibial veins, remaining deep veins in both legs are patent. 2/1: Patient seen and examined at bedside. Chart and telemetry reviewed. Telemetry: AFIV 70-90s Upon entrance into the room patient sitting up in the chair- states that shes feeling much better today. No acute concerns. No chest pain or worsening sob. No dizziness or lightheadedness. Review of Systems Review of Systems: All systems reviewed & are unremarkable except as noted in HPI & below Physical Exam Constitutional: WD/WN, vitals as above no acute distress Eyes: PERRL, conjunctivae normal, anicteric sclerae Neck: normal visual inspection and trachea midline Respiratory: normal respiratory effort, lungs clear to auscultation + cough (dry cough) Auscultation: no rales, no rhonchi and no wheezes Cardiovascular: Rate/Rhythm: regular rate and + irregularly irregular Heart Sounds: normal S1, normal S2 and + murmur (faint systolic murmur) Vessels: no JVD Extremities: no edema Gastrointestinal (Abdomen): normal bowel sounds, soft, nontender, no hepatosplenomegaly Musculoskeletal: no cyanosis or clubbing, extremities motor strength 5/5 Skin: no rashes, warm and dry Results & Data ([facility]) Vital Signs (Past 12 Hours) Vital Signs Temp Pulse Pulse Resp BP Pulse Ox O2 Del Method 12/30/22 03:27 36.6 C 84 20 123/77 96 Room Air 12/30/22 02:24 83 12/29/22 23:09 36.7 C 92 H 20 129/76 100 Room Air Laboratory Results Coagulation 12/30/22 Range/Units 06:26 APTT 83.1 H* (21.0-31.0) Seconds CBC 12/30/22 Range/Units 06:26 WBC 5.69 (4.8-10.8) K/ul RBC 4.22 (4.20-5.40) M/uL Hgb 10.7 L (12.0-16.0) g/dl Hct 33.8 L (37.0-47.0) % Plt Count 330 (130-400) K/uL Comprehensive Metabolic Panel 12/30/22 Range/Units 06:26 Sodium 141 (136-145) mmol/L Potassium 3.7 (3.5-5.1) mmol/L Chloride 111 H (98-107) mmol/L Carbon Dioxide 24 (21-32) mmol/L BUN 16 (6-23) mg/dl Creatinine 1.04 (0.6-1.2) mg/dl Glucose 110 H (70-99(Fasting)) mg/dl Calcium 9.2 (8.5-10.1) mg/dl Intake and Output 12/29/22 12/30/22 12/30/22 22:59 06:59 14:59 Intake Total 776.833 / 1299.766 250 / 1299.766 307.817 / 307.817 Output Total 1350 / 1650 400 / 400 Balance -573.167 / -350.234 250 / -350.234 -92.183 / -92.183 Intake: IV 279.833 / 552.766 307.817 / 307.817 Heparin Sodium/Dextrose 25,000 279.833 / 552.766 307.817 / 307.817 units In 500 ml @ 1,150 UNITS/ HR 23 mls/hr IV .[id number] COUNT INCLUDES THE [facility] Rx #:[id number] Oral 497 / 747 250 / 747 Output: Urine 1350 / 1650 400 / 400 Other: Weight 78.6 kg Weight Measurement Method Standing Scale (1) Pulmonary embolism Acute cor pulmonale presence: without acute cor pulmonale Chronicity: acute Pulmonary embolism type: unspecified Qualified Code(s): I26.99 - Other pulmonary embolism without acute cor pulmonale
[2022-12-30 07:49] LABS: Hematocrit (blood only) 33.8 % (37.0-47.0); Hemoglobin 10.7 g/dl (12.0-16.0); Mean Corpuscular Hemoglobin 25.4 pg (25.0-34.0); Mean Corpuscular Hgb Conc 31.7 g/dL (32.0-36.0); Mean Corpuscular Volume 80.1 fL (80.0-100.0); Mean Platelet Volume 11.4 fL (9.4-12.4); Platelet Count 330 K/uL (130-400); RDW Coefficient of Variation 14.6 % (11.5-14.5); RDW Standard Deviation 42.3 fL (36.4-46.3); Red Blood Count 4.22 M/uL (4.20-5.40); White Blood Count 5.69 K/ul (4.8-10.8)
[2022-12-30 08:04] LABS: BUN Creatinine Ratio 15.4 (10-20); Calcium 9.2 mg/dl (8.5-10.1); Creatinine Clr Calc Pharmacy 43.5 ml/min; Est GFR (African American) 59.2 ml/min; Est GFR (Non-African American) 51.1 ml/min; Magnesium 1.7 mg/dl (1.7-2.4); Potassium 3.7 mmol/L (3.5-5.1)
[2022-12-30] MEDS: lisinopril 40 MG TAB PO SCH (08:04)
[2022-12-30] MEDS: amLODIPine BESYLATE 5 MG TAB PO SCH (08:05)
[2022-12-30] MEDS: PANTOprazole 40 MG TAB PO SCH (08:05)
[2022-12-30] MEDS: FLUTICASONE PROPIONATE NA SPR 16 GM BTL SCH (08:05)
[2022-12-30] MEDS: BENZONATATE 100 MG CAPSULE PO PRN (08:08)
[2022-12-30] MEDS ORDERED: MAGNESIUM SULFATE / D5W 1 GM/100 ML BAG IV ONE (08:23)
--- NOTE | 2022-12-30 08:28 | Hospitalist Progress Note ---
Date of Service December 30, 2022 Assessment & Plan (1) New onset atrial fibrillation: Plan: She was sent to the ER after she was seen from PCP office for cough and congestion and she was found to be in Afib with RVR EKG on admission revealed Afib In the ER she received cardizem 20mg IV bolus then started on IV cardizem drip HR improved and cardizem drip was discontinued ECHO showed no wall motion abnormality with EF 55 to 60 % Cardiology consulted Currently on IV heparin drip -> will switch to PO eliquis tonight (discussed w/ cardiology) Transition to metoprolol succinate 25 mg bid Keep K above 4 Continue monitor closely in tele After discharge Cardiology follow up as an outpatient in about 4 weeks following discharge. Can consider outpatient zio monitor to assess rate control and AFIB burden. Consider hypercoagulability work-up as an outpatient (2) Pulmonary embolism: Plan: CTA chest showed Right upper and lower lobe pulmonary emboli Currently on IV heparin drip -> will switch to PO eliquis Discussed anticoagulant choice with patient btw Warfarin and DOAC Pt said that her was on Warfarin that she does not want it and she would prefer the DOAC Major side effect about anticoagulant discussed with patient such intracranial bleeding, GI bleed and other abnormal bleeding Called pharmacy and checked the cost for eliquis that will be $15 per month. She said that she would be able to afford it Plan to transition to Eliquis before discharge Continue monitor closely (3) Breast lesion: Plan: Seen incidentally on CTA chest- 11 mm lesion partially visualized in the left breast. Will need outpatient follow up/mammogram (4) URI (upper respiratory infection): Plan: Covid negative Continue cough med Plan HTN continue lisinopril 40mg daily, amlodipine 10mg daily with hold parameters HLD- continue fenofibrate Osteoporosis- continue vitamin D, hold alendronate Code status Full code Admission and Anticipated Discharge Date Admission Date: December 28, 2022 Subjective Pt was seen in follow up of Afib/PE , DVT r calf Sitting up in chair in no acute distress Reports having dry cough Breathing comfortably on RA Denies any pleuritic chest pain Denies any chest pain, palpitation, dizziness or shortness of breath Review of Systems Review of Systems: All systems reviewed & are unremarkable except as noted in Subjective Physical Exam Physical Exam: General- No acute distress Head- at raumatic Eyes- PER RL, EOMI, ENT- leonarda pharynx clear Neck - supple, no JVD L ungs- clear to aus cultation Heart- i rregular rhythm Ab domen- normal shriley l sounds, soft, no ntender Extremitie s- no calf tender ness Neuro- alert, oriented x 3; PER RL, EOMI; no facia l palsy; no dysart hria, moves extrem ities Skin- warm & dry Results & Data Results & Data ([facility]) Vital Signs (Past 12 Hours) Vital Signs Temp Pulse Pulse Resp BP Pulse Ox O2 Del Method 12/30/22 08:02 37.0 C 80 18 152/93 H 95 Room Air 12/30/22 03:27 36.6 C 84 20 123/77 96 Room Air 12/30/22 02:24 83 12/29/22 23:09 36.7 C 92 H 20 129/76 100 Room Air Laboratory Results 12/30/22 12/30/22 12/30/22 Range/Units 06:26 06:26 06:26 WBC 5.69 (4.8-10.8) K/ul RBC 4.22 (4.20-5.40) M/uL Hgb 10.7 L (12.0-16.0) g/dl Hct 33.8 L (37.0-47.0) % MCV 80.1 (80.0-100.0) fL MCH 25.4 (25.0-34.0) pg MCHC 31.7 L (32.0-36.0) g/dL RDW Std Deviation 42.3 (36.4-46.3) fL RDW Coeff of [place] 14.6 H (11.5-14.5) % Plt Count 330 (130-400) K/uL MPV 11.4 (9.4-12.4) fL APTT Pending PTT Ratio Pending Sodium 141 (136-145) mmol/L Potassium 3.7 (3.5-5.1) mmol/L Chloride 111 H (98-107) mmol/L Carbon Dioxide 24 (21-32) mmol/L Anion Gap 6 (3-11) BUN 16 (6-23) mg/dl Creatinine 1.04 (0.6-1.2) mg/dl Est Cr Clr Drug Dosing 43.5 ml/min Est GFR ( Amer) 59.2 ml/min Est GFR (Non-Af Amer) 51.1 ml/min BUN/Creatinine Ratio 15.4 (10-20) Glucose 110 H (70-99(Fasting)) mg/dl POC Glucose (70-99) mg/dl Calcium 9.2 (8.5-10.1) mg/dl Magnesium 1.7 (1.7-2.4) mg/dl 12/29/22 Range/Units 11:24 WBC (4.8-10.8) K/ul RBC (4.20-5.40) M/uL Hgb (12.0-16.0) g/dl Hct (37.0-47.0) % MCV (80.0-100.0) fL MCH (25.0-34.0) pg MCHC (32.0-36.0) g/dL RDW Std Deviation (36.4-46.3) fL RDW Coeff of [place] (11.5-14.5) % Plt Count (130-400) K/uL MPV (9.4-12.4) fL APTT PTT Ratio Sodium (136-145) mmol/L Potassium (3.5-5.1) mmol/L Chloride (98-107) mmol/L Carbon Dioxide (21-32) mmol/L Anion Gap (3-11) BUN (6-23) mg/dl Creatinine (0.6-1.2) mg/dl Est Cr Clr Drug Dosing ml/min Est GFR ( Amer) ml/min Est GFR (Non-Af Amer) ml/min BUN/Creatinine Ratio (10-20) Glucose (70-99(Fasting)) mg/dl POC Glucose 125 H (70-99) mg/dl Calcium (8.5-10.1) mg/dl Magnesium (1.7-2.4) mg/dl Medications Administered Current Inpatient Medications Acetaminophen (Acetaminophen 325 Mg Tab) 650 mg PO Q4H PRN PRN Reason: Pain or Fever Stop: 01/27/23 18:49 Al Hydrox/Mg Hydrox/Simethicone (Aluminum/Magnesium Susp 30 Ml Udc) 15 ml PO Q4H PRN PRN Reason: Dyspepsia Stop: 01/27/23 18:49 Amlodipine Besylate ([facility]ylate 5 Mg Tab) [facility] Stop: 01/28/23 08:59 Last Admin: 12/30/22 08:05 Dose: 10 mg Aspirin (Aspirin 81 Mg Ectab) 81 mg PO HS [facility] Stop: 01/27/23 21:28 Last Admin: 12/29/22 21:09 Dose: 81 mg Benzonatate (Benzonatate 100 Mg Capsule) 100 mg PO Q8 PRN PRN Reason: cough Stop: 01/27/23 21:59 Last Admin: 12/30/22 08:08 Dose: 100 mg Fenofibrate (Fenofibrate Nanocrystallized 145 Mg Tablet) 145 mg PO QDD [facility] Stop: 01/28/23 16:29 Last Admin: 12/29/22 16:29 Dose: 145 mg Fluticasone Propionate (Fluticasone Propionate Na Spr 16 Gm Btl) 2 sprays [facility] Stop: 01/28/23 08:59 Last Admin: 12/30/22 08:05 Dose: 2 sprays Heparin Sodium/Dextrose (Heparin Sodium/Dextrose) 25,000 units in 500 mls @ 23 mls/hr IV .[id number] [facility]; Protocol Stop: 01/27/23 18:44 Last Titration: 12/30/22 07:17 Dose: 1,150 units/hr, 23 mls/hr Magnesium Sulfate/Dextrose (Magnesium Sulfate / D5w) 1 gm in 100 mls @ 50 mls/hr IV ONE ONE Stop: 12/30/22 10:22 Lisinopril (Lisinopril 40 Mg Tab) 40 mg PO [facility] Stop: 01/28/23 08:59 Last Admin: 12/30/22 08:04 Dose: 40 mg Magnesium Hydroxide (Magnesium Hydroxide Susp 30 Ml Udc) 30 ml PO Q12H PRN PRN Reason: Constipation Stop: 01/27/23 18:49 Metoprolol Tartrate (Metoprolol Tartrate 25 Mg Tab) 12.5 mg PO Q6 [facility] Stop: 01/28/23 09:14 Last Admin: 12/30/22 06:18 Dose: 12.5 mg Ondansetron HCl (Ondansetron Inj 2 Mg/Ml 2 Ml Vial) 4 mg IV Q6H PRN PRN Reason: Nausea Stop: 01/27/23 18:49 Pantoprazole Sodium (Pantoprazole 40 Mg Tab) 40 mg PO DAILY [facility]IA[facility] Stop: 01/28/23 08:59 Last Admin: 12/30/22 08:05 Dose: 40 mg Polyethylene Glycol (Polyethylene (Miralax) 17 Gm Pack) 17 gm PO DAILY PRN PRN Reason: Constipation Stop: 01/27/23 18:49 Vitamin D (Cholecalciferol 5,000 Units 125 Mcg Tab) 5,000 units PO HS [facility] Stop: 01/28/23 20:59 Last Admin: 12/29/22 21:09 Dose: 5,000 units (1) Pulmonary embolism Acute cor pulmonale presence: without acute cor pulmonale Chronicity: acute Pulmonary embolism type: unspecified Qualified Code(s): I26.99 - Other pulmonary embolism without acute cor pulmonale
[2022-12-30 08:31] LABS: Partial Thromboplastin Time 83.1 Seconds (21.0-31.0)
[2022-12-30] MEDS: POTASSIUM CHLORIDE CRTAB 20 MEQ TABCR PO SCH (11:38)
[2022-12-30] MEDS: HEPARIN SODIUM/DEXTROSE 25,000 UNITS/500 ML BAG IV SCH ×3 (13:23→17:06)
[2022-12-30 15:38] LABS: Partial Thromboplastin Ratio 3.1
[2022-12-30 15:53] LABS: Partial Thromboplastin Time 86.6 Seconds (21.0-31.0)
[2022-12-30] MEDS: FENOFIBRATE NANOCRYSTALLIZED 145 MG TABLET PO SCH (15:56)
[2022-12-30] MEDS: ASPIRIN 81 MG ECTAB PO SCH (20:01)
[2022-12-30] MEDS: CHOLECALCIFEROL 5,000 UNITS 125 MCG TAB PO SCH (20:02)
[2022-12-30] MEDS: METOPROLOL SUCC 25MG EXT REL TAB PO SCH (20:02)
[2022-12-30] MEDS: APIXABAN 5 MG TABLET PO SCH (20:06)
[2022-12-30 23:50] LABS: Partial Thromboplastin Time 55.4 Seconds (21.0-31.0)
[2022-12-31 06:42] LABS: Hematocrit (blood only) 32.7 % (37.0-47.0); Hemoglobin 10.2 g/dl (12.0-16.0); Mean Corpuscular Hemoglobin 24.9 pg (25.0-34.0); Mean Corpuscular Hgb Conc 31.2 g/dL (32.0-36.0); Mean Corpuscular Volume 79.8 fL (80.0-100.0); Mean Platelet Volume 11.3 fL (9.4-12.4); Platelet Count 300 K/uL (130-400); RDW Coefficient of Variation 14.5 % (11.5-14.5); RDW Standard Deviation 42.2 fL (36.4-46.3); White Blood Count 5.28 K/ul (4.8-10.8)
[2022-12-31 06:54] LABS: BUN Creatinine Ratio 20.7 (10-20); Calcium 9.2 mg/dl (8.5-10.1); Creatinine Clr Calc Pharmacy 37.5 ml/min; Est GFR (African American) 49.3 ml/min; Est GFR (Non-African American) 42.5 ml/min; Magnesium 1.8 mg/dl (1.7-2.4); Phosphorus 2.8 mg/dl (2.5-4.9); Potassium 3.7 mmol/L (3.5-5.1)
--- NOTE | 2022-12-31 08:17 | Cardiology Progress Note ---
Date of Service December 31, 2022 Assessment & Plan (1) New onset atrial fibrillation: (2) Pulmonary embolism: Plan New onset AFIB in the setting of PE. Patient asymptomatic with AFIB. HRs controlled -Controlled metoprolol succinate 25 mg BID- continue at discharge. -Heparin dc'd in favor of Eliquis, PE/DVT dosing per hospitalist team. Case discussed with Dr. Huang-no further recommendations from a cardiology standpoint. Will plan for cardiology follow up as an outpatient in about 4 weeks following discharge. Can consider outpatient zio monitor to assess rate control and AFIB burden. Consider hypercoagulability work-up as an outpatient- will defer to primary team. Admission and Anticipated Discharge Date Admission Date: December 28, 2022 Supervising Physician Co-Signing Physician Notes Case discussed with JEY Velazquez. Agree with findings and plans as noted above. Subjective 77-year-old female who initially presented to [facility] emergency department with new onset atrial fibrillation in the setting of pulmonary embolism. Heart rates averaging in the 90s to 100s. Asymptomatic with atrial fibrillation. 12/29: Metoprolol tartrate increased to 12.5 mg every 6. Diltiazem discontinued. Anticoagulated with heparin for stroke prevention as well as pulmonary embolism. Borderline hypokalemia-potassium supplemented. EchoA. fib with controlled ventricular rate during exam. Mild concentric LVH. No wall motion abnormalities. LVEF 55 to 60%. Mildly dilated left atrium. Mild MR and mild TR. Mild pulmonary hypertension with a pulmonary artery systolic pressure estimated to be around 35 to 45 mmHg. Venous DopplersDVT identified in the right calf within one of the posterior tibial veins, remaining deep veins in both legs are patent. 2/: No acute concerns. Telemetry stable with A. fib in the 70s to 90s. 2/2: Patient seen and examined at bedside. Chart and telemetry reviewed. Telemetry: AFIB 70-80s Upon entrance into the room patient sitting up in the chair- notes and improvement in her energy. Eager for discharge. No acute concerns. No chest pain or worsening sob. No dizziness or lightheadedness. Review of Systems Review of Systems: All systems reviewed & are unremarkable except as noted in HPI & below Physical Exam Constitutional: WD/WN, vitals as above no acute distress Eyes: PERRL, conjunctivae normal, anicteric sclerae Neck: normal visual inspection and trachea midline Respiratory: normal respiratory effort, lungs clear to auscultation + cough (dry cough) Auscultation: no rales, no rhonchi and no wheezes Cardiovascular: Rate/Rhythm: regular rate and + irregularly irregular Heart Sounds: normal S1, normal S2 and + murmur (faint systolic murmur) Vessels: no JVD Extremities: no edema Gastrointestinal (Abdomen): normal bowel sounds, soft, nontender, no hep atosplenomegaly Musculoskeletal: no cyanosis or clubbing, extremities motor strength 5/5 Skin: no rashes, warm and dry Results & Data ([facility]) Vital Signs (Past 12 Hours) Vital Signs Temp Pulse Pulse Resp BP Pulse Ox O2 Del Method 12/31/22 08:03 36.5 C 77 16 128/75 95 Room Air 12/31/22 03:18 36.6 C 83 19 112/70 95 Room Air 12/30/22 22:00 78 12/31/22 00:12 36.7 C 96 H 18 127/76 96 Room Air Laboratory Results Coagulation 12/30/22 12/30/22 Range/Units 14:06 22:31 APTT 86.6 H* 55.4 H* (21.0-31.0) Seconds CBC 12/31/22 Range/Units 05:36 WBC 5.28 (4.8-10.8) K/ul RBC 4.10 L (4.20-5.40) M/uL Hgb 10.2 L (12.0-16.0) g/dl Hct 32.7 L (37.0-47.0) % Plt Count 300 (130-400) K/uL Comprehensive Metabolic Panel 12/31/22 Range/Units 05:36 Sodium 141 (136-145) mmol/L Potassium 3.7 (3.5-5.1) mmol/L Chloride 110 H (98-107) mmol/L Carbon Dioxide 25 (21-32) mmol/L BUN 25 H (6-23) mg/dl Creatinine 1.21 H (0.6-1.2) mg/dl Glucose 115 H (70-99(Fasting)) mg/dl Calcium 9.2 (8.5-10.1) mg/dl Intake and Output 12/30/22 12/31/22 12/31/22 22:59 06:59 14:59 Intake Total 144.25 / 1752.667 620 / 1752.667 Output Total 1050 / 3150 Balance 144.25 / -1397.333 -430 / -1397.333 Intake: IV 144.25 / 657.667 Heparin Sodium/Dextrose 25,000 144.25 / 557.667 units In 500 ml @ 1,050 UNITS/ HR 21 mls/hr IV .[id number] [facility] Rx #:[id number] Oral 620 / 1095 Output: Urine 1050 / 3150 Other: # Unmeasured Voids 2 Weight 78.9 kg (1) Pulmonary embolism Acute cor pulmonale presence: without acute cor pulmonale Chronicity: acute Pulmonary embolism type: unspecified Qualified Code(s): I26.99 - Other pulmonary embolism without acute cor pulmonale
[2022-12-31] MEDS: FLUTICASONE PROPIONATE NA SPR 16 GM BTL SCH (08:20)
[2022-12-31] MEDS: amLODIPine BESYLATE 5 MG TAB PO SCH (08:22)
[2022-12-31] MEDS: lisinopril 40 MG TAB PO SCH (08:22)
[2022-12-31] MEDS: METOPROLOL SUCC 25MG EXT REL TAB PO SCH (08:22)
[2022-12-31] MEDS: BENZONATATE 100 MG CAPSULE PO PRN (08:22)
[2022-12-31] MEDS: APIXABAN 5 MG TABLET PO SCH (08:23)
[2022-12-31] MEDS: PANTOprazole 40 MG TAB PO SCH (08:23)
[2022-12-31] MEDS: POTASSIUM CHLORIDE CRTAB 20 MEQ TABCR PO SCH (08:23)
--- NOTE | 2022-12-31 10:54 | Discharge Summary ---
Date of Service December 31, 2022 Admission HPI Per Admitting Provider Ms Cris Kumar is a 77 year old female with history of HLD, HTN and diet controlled diabetes sent to the ER today from her PCP's office after she presented there with cough, congestion and found to be in new onset atrial fibrillation. In the office, her HR was 110s and upon arrival to the ER HR 120-160s. Which improved to 100s after administration of diltiazem 20mg IV. CXR shows cardiomegaly but without active disease CTA chest shows RUL and RLL PE, a partially imaged 11mm left breast lesion, cardiomegaly and coronary calcifications. Patient has been in her usual state of health other than a dry, non productive cough for the past several days. Denies fever/chills, nausea/vomiting, weakness, chest pain. ER course- Diltiazem 20mg IV, heparin drip bolus and maintenance, 1L NSS, aspirin 324mg PMHx- HTN, HLD, Diet controlled DM PSHx- left knee surgery, colon surgery (patient describes having had a colovesical fistula repair) SHx- denies alcohol, drugs, smoking FHx- mother had NC Admission Exam Per Admitting Provider Physical Exam: Appears well nourished, no acute distress, pleasant and comfortable ENMT: No sinus tenderness, normocephalic, atraumatic Respiratory: No wheezing/rhonchi/rales, breathing comfortably on room air Cardiovascular: Irregular, HR 100s on telemetry, no murmurs/rubs Gastrointestinal (Abdomen): soft, non tender, non distended Musculoskeletal: No edema, no cyanosis or clubbing Neurologic: awake, alert, spontaneously moving extremities Principal Diagnosis Pulmonary embolism Right calf DVT Atrial fibrillation, new onset Discharge Exam General- No acute distress Head- atraumatic Eyes- PERRL, EOMI, ENT- oropharynx clear Neck- supple, no JVD Lungs- clear to auscultation Heart- irregular rhythm Abdomen- normal bowel sounds, soft, nontender Extremities- no calf tenderness Neuro- alert, oriented x 3; PERRL, EOMI; no facial palsy; no dysarthria, moves extremities Skin- warm & dry Discharge Data Allergies Allergy/AdvReac Type Severity Reaction Status Date / Time house dust Allergy Intermediate SNEEZING, Verified 12/28/22 18:42 CONGESTION pollen extracts Allergy Intermediate SNEEZING, Verified 12/28/22 18:42 CONGESTION betamethasone AdvReac Severe ELEVATED Verified 12/28/22 18:42 BLOOD SUGAR Consultations 12/28/22 18:26 ED Decision to Admit Stat 12/28/22 19:38 Consult Cardiology Stat Ordered Studies 12/28/22 16:58 CT angio chest PE protocol Stat FINDINGS: Thyroid: Normal in size and heterogeneous in attenuation. Thoracic aorta: There is mild atherosclerotic calcification of the thoracic aorta, which is normal in caliber and demonstrates standard 3-vessel arch anatomy. No dissection is seen. Pulmonary vasculature: The pulmonary trunk is normal in caliber. There is throm bus within the right upper lobe pulmonary artery extending into segmental and subsegmental branches. There are also segmental and subsegmental pulmonary emboli within branches the right lower lobe pulmonary artery. Heart: The heart is enlarged and without pericardial effusion. There are coronary artery calcifications. Lungs and pleural spaces: There is no airspace consolidation or pleural effusi on. The trachea and central airways are clear. Foci of parenchymal scarring are seen throughout both lungs. A 3 mm right lower lobe pulmonary nodule is seen on image #133. A 3 mm nodule in the lingula seen on image #166. These are of low suspicion. Mediastinum: There is no mediastinal lymphadenopathy. Mary: Clear. Axillae: There is no axillary lymphadenopathy. Upper abdomen: There is a small to moderate hiatal hernia. The liver is steatotic. Skeletal structures: The skeletal structures are osteopenic. Degenerative change and hyperkyphosis is noted in the thoracic spine. Arthritic change is seen in the shoulders. No lytic or blastic bony lesions are seen. Soft tissues: A left breast lesion is partially visualized and measures up to 11 mm as seen on image #122. IMPRESSION: 1. Right upper and lower lobe pulmonary emboli as above. 2. There is an 11 mm lesion partially visualized in the left breast. This is not well assessed by CT and mammographic correlation is recommended. 3. There is no airspace consolidation or pleural effusion. 4. Cardiomegaly. 5. Additional findings as above. 12/29/22 16:45 US venous duplex leg [US venous doppler LE BI] Routine FINDINGS: Right lower extremity: There is deep venous thrombosis identified in the right calf within one of the posterior tibial veins. The remaining visualized calf vessels are patent. The common femoral, superficial femoral, and popliteal veins are patent and normally compressible. The greater saphenous vein and the profunda femoris vein at the junction with the common femoral vein are clear. Left lower extremity: There is no sonographic evidence of deep venous thrombosis in the left lower extremity. The common femoral, superficial femoral, and popliteal veins are patent and normally compressible. The greater saphenous vein and the profunda femoris vein at the junction with the common femoral vein are clear. The visualized calf veins are patent. IMPRESSION: 1. There is deep venous thrombosis identified in the right calf within one of the posterior tibial veins. 2. The remaining deep veins of both legs are patent. Hospital Course (1) New onset atrial fibrillation: She was sent to the ER after she was seen from PCP office for cough and congestion and she was found to be in Afib with RVR EKG on admission revealed Afib In the ER she received cardizem 20mg IV bolus then started on IV cardizem drip HR improved and cardizem drip was discontinued ECHO showed no wall motion abnormality with EF 55 to 60 % Cardiology consulted Was on IV heparin drip -> switched to PO eliquis Transitioned to metoprolol succinate 25 mg bid Keep K above 4 Continue monitor closely in tele After discharge Cardiology follow up as an outpatient in about 4 weeks following discharge. Can consider outpatient zio monitor to assess rate control and AFIB burden. Consider hypercoagulability work-up as an outpatient (2) Pulmonary embolism: CTA chest showed Right upper and lower lobe pulmonary emboli Was on IV heparin drip -> switched to PO eliquis Discussed anticoagulant choice with patient btw Warfarin and DOAC Pt said that her was on Warfarin that she does not want it and she would prefer the DOAC Major side effect about anticoagulant discussed with patient such intracranial bleeding, GI bleed and other abnormal bleeding Called pharmacy and checked the cost for eliquis that will be $15 per month. She said that she would be able to afford it Transitioned to Eliquis before discharge Continue monitor closely (3) Breast lesion: Seen incidentally on CTA chest- 11 mm lesion partially visualized in the left breast. Will need outpatient follow up/mammogram (4) URI (upper respiratory infection): Covid negative Continue cough med Plan HTN continue lisinopril 40mg daily, amlodipine 10mg daily with hold parameters HLD- continue fenofibrate Osteoporosis- continue vitamin D, hold alendronate Total Time Total Time Spent Total Time Spent (In Minutes): 40 Discharge Plan Discharge Items Patient Disposition: Home - Self-Care Reason For Visit: RAPID ATRIAL FIBRILLATION Discharge Diagnosis: Pulmonary embolism Right calf DVT Atrial fibrillation, new onset Activity: Per Instructions section Non-emergency contact: Primary Care Provider Call non-emergency contact if: you have any medication questions and your symptoms worsen Follow-up/Referrals: Arlet Hernandez DO [Primary Care Provider] - (Date & Time 01/08/2023 8:40 AM Provider Arlet Hernandez DO Department Family Practice [address], [place] ) Diet: Carb Consistent or DM2 Addtl Attending Provider Instructions: Follow-up with your primary care doctor, the appointment was scheduled for you for 01/08/2023. You will also need to follow-up with cardiology, in about 4 weeks. You will be contacted about the appointment. Likely you will be asked to wear a heart monitor to assess rate control and atrial fibrillation burden. Take Eliquis as prescribed. Take 10 mg twice daily for a week, then take 5 mg twice daily. For rate control, take metoprolol succinate 25 mg twice a day. Pending Studies at Discharge: No Stand-Alone Forms: My [employer], Smoking Cessation Medications and DC Order Prescriptions: New Eliquis 5 mg tablet 5 mg PO UD Qty: 74 0RF Rx Instructions: Take 2 tab BID for 7 days, then continue 5 mg BID metoprolol succinate 25 mg Tablet Extended Release 24 Hr 25 mg PO BID 30 Days Qty: 60 0RF Continued alendronate 70 mg tablet 70 mg PO WK Rx Instructions: TAKES ON SUNDAYS aspirin 81 mg Tablet,Delayed Release (Dr/Ec) 81 mg PO HS amlodipine 10 mg tablet 10 mg PO QAM lisinopril 40 mg tablet 40 mg PO QAM fluticasone propionate 50 mcg/actuation spray,suspension 2 spray INTRANASAL QAM fenofibrate nanocrystallized 145 mg tablet 145 mg PO QDD cholecalciferol (vitamin D3) [Vitamin D3] 125 mcg (5,000 unit) Tablet 125 mcg PO HS Rx Instructions: PER [facility] SHOULD BE 2,000 UNITS. potassium chloride 20 mEq tablet extended release 20 meq PO QDL amoxicillin 500 mg tablet 2,000 mg PO DIRECTED PRN (Reason: PRIOR TO PROCEDURES) Rx Instructions: 4 tabs 1 hour prior to procedure Discharge Orders: Discharge Order (Routine); Ordered 12/31/22 Ordered By: Sarath Ross Admission Data Admit Date/Time: 12/28/22 18:50 Attending Provider: Sarath Rsos Admit Provider: Daren Matta Primary Care Provider: Arlet Hernandez Other Providers: Daren Matta ; Timur Barlow Wilkerson
== END 2022-12-31 15:15 | disposition home or self-care (01) | DRG 308 ==
LOC: ED 16:33 → EDINP 18:50 → SUATTDRO 18:50 → EDINP 21:28 → 2S 22:45

== ENCOUNTER 2023-02-05 08:55 | Inpatient (IN) ==
[2023-02-05] MEDS ORDERED: SODIUM CHLORIDE 0.9% 500 ML IV STA (09:12)
--- NOTE | 2023-02-05 09:14 | Emergency Department Note ---
Impression & Plan Acute lower GI bleeding ADMIT ED Provider Note HPI: The patient is a 77-year-old female with history of atrial fibrillation, currently on Eliquis, presents the emergency department with low hemoglobin noted on her outpatient lab work yesterday. Patient states she was contacted today by her primary provider team in regards to coming to the ER for possible blood transfusion. Patient states over the past several weeks she has noted darker stools than usual, denies any bright red blood per rectum. On arrival here to the ED the patient is hemodynamically stable, she is in no acute distress. Denies any chest pain, denies any abdominal pain, denies any vomiting. Patient states that she has noticed that she has been feeling a little bit more short of breath with exertion recently. Patient is saturating well on room air on arrival. ROS: - Per HPI *Outpatient medications and allergy history reviewed. *Pertinent external medical records reviewed. PE: General: Alert HEENT: Normocephalic, trachea midline Eyes: Extraocular eye movement is intact, no scleral erythema Pulmonary: Clear to auscultation bilaterally, no wheezing Cardio: Regular rate and rhythm GI: Abdomen is soft to palpation : No suprapubic tenderness MSK: No evidence of trauma or malformation of the extremities, no edema Skin: No evidence of rash Neuro: Alert, no focal deficits Psychiatric: Cooperative vehicle monitor technician: (As interpreted by myself): - An order was placed for continuous cardiac monitoring - Patient was noted to be in atrial fibrillation with a rate of 85 EKG: (As interpreted by myself): Rate: 91 Rhythm: Atrial fibrillation Intervals: Within normal limits ST changes: No ST elevation Time: 0918 Interventions provided in ED: -IV fluid bolus, IV Protonix Differential Diagnosis: Peptic ulcer disease, AVM disease of stomach or bowel, hemorrhoids, ACS, symptomatic anemia, amongst other potential pathologies. Medical Decision Making: The patient is a very pleasant 77-year-old female who has history of atrial fibrillation and is currently on Eliquis, presents the emergency department with anemia that was noted on her outpatient lab work from yesterday. Patient was contacted by phone this morning to come to the ED for blood transfusion. P atient is hemodynamically stable on arrival, IV was established, lab work obtained, patient was placed on director of cardiac cath lab. Lab work does show evidence of a hemoglobin of 5.9, BUN is also elevated at 30, mild creatinine elevation at 1.27, patient was given IV fluids in the ED, started on Protonix drip following Protonix bolus. Occult stool testing is positive. Patient denies any current abdominal pain, she is hemodynamically stable, she was consented for packed red blood cell transfusion. Given lack of any pain, CT imaging of the abdomen pelvis was not performed. I did discuss the case with the on-call midlevel provider for [facility], patient will be admitted to the hospitalist service for further management of lower GI bleed with symptomatic anemia. Will defer GI consultation to the inpatient service given the patient's current hemodynamic stability. Consultants: Hospitalist service Disposition discussion held by myself with: Patient and daughter at the bedside * CRITICAL CARE TIME: ( 45 ) minutes -Stabilization of symptomatic anemia with lower GI bleed with hemoglobin less than 7.0 requiring packed red blood cell transfusion, time spent at the bedside, discussion with family, discussion with other healthcare providers and a rrangement of admission Diagnosis: 1. Lower GI bleed/occult positive stool 2. Symptomatic anemia 3. Elevated BUN 4. Acute kidney injury, mild Disposition: Admission Ean Bryant DO Emergency Medicine Past Med/Surg History Medical History Diabetes HLD (hyperlipidemia) HTN (hypertension) Social History Smoking Status: Never smoker Hx Alcohol Use: No Hx Substance Use: No Preferred Language: Georgian Communication Ability: Effective Content Engineer Required: No Beliefs That Will Affect Care: None Current Living Situation: Alone Feels Safe at Home: Yes Assistive Devices: None Allergies Allergies Allergy/AdvReac Type Severity Reaction Status Date / Time house dust Allergy Intermediate SNEEZING, Verified 12/28/22 18:42 CONGESTION pollen extracts Allergy Intermediate SNEEZING, Verified 12/28/22 18:42 CONGESTION betamethasone AdvReac Severe ELEVATED Verified 12/28/22 18:42 BLOOD SUGAR Home Meds Home Medications Medication Instructions Recorded Confirmed alendronate 70 mg tablet 70 mg PO WK 12/28/22 12/28/22 amlodipine 10 mg tablet 10 mg PO QAM 12/28/22 12/28/22 amoxicillin 500 mg tablet 2,000 mg PO DIRECTED PRN PRIOR 12/28/22 12/28/22 TO PROCEDURES aspirin 81 mg tablet,delayed 81 mg PO HS 12/28/22 12/28/22 release cholecalciferol (vitamin D3) 125 125 mcg PO HS 12/28/22 12/28/22 mcg (5,000 unit) tablet (Vitamin D3) fenofibrate nanocrystallized 145 145 mg PO QDD 12/28/22 12/28/22 mg tablet fluticasone propionate 50 2 spray intranasal QAM 12/28/22 12/28/22 mcg/actuation nasal spray,suspension lisinopril 40 mg tablet 40 mg PO QAM 12/28/22 12/28/22 potassium chloride 20 mEq 20 meq PO QDL 12/28/22 12/28/22 tablet,extended release Previous Rx's Medication Instructions Recorded apixaban 5 mg tablet (Eliquis) 5 mg PO UD #74 tabs 12/29/22 Results & Data (ED) Vital Signs Vital Signs - 24 hr 02/05/23 09:02 02/05/23 09:12 02/05/23 09:41 Temperature 36.7 C Temperature Source Temporal Artery Scan Pulse Rate 86 80 Respiratory Rate 20 Respiratory Effort / Characteristics Non-Labored Respiratory Depth Normal Blood Pressure 124/68 Blood Pressure Mean 86 Pulse Oximetry 99 98 Oxygen Delivery Method Room Air Room Air Sepsis Recent Fever Within 48 Hours No Sepsis New/Unexplained Change in Mental Status N/A Sepsis Action Taken by Nursing No Action Required Laboratory Data 02/05/23 09:32 02/05/23 09:32 Lab Results 02/05/23 02/05/23 02/05/23 Range/Units 09:32 09:32 09:32 WBC 6.40 (4.8-10.8) K/ul RBC 2.66 L (4.20-5.40) M/uL Hgb 5.9 L* (12.0-16.0) g/dl Hct 20.0 L* (37.0-47.0) % MCV 75.2 L (80.0-100.0) fL MCH 22.2 L (25.0-34.0) pg MCHC 29.5 L (32.0-36.0) g/dL RDW Std Deviation 41.6 (36.4-46.3) fL RDW Coeff of [place] 15.3 H (11.5-14.5) % Plt Count 334 (130-400) K/uL MPV 10.7 (9.4-12.4) fL Immature Gran % (Auto) 0.3 % Neut % (Auto) 79.4 % Lymph % (Auto) 8.6 % Mcdonough % (Auto) 10.5 % Eos % (Auto) 0.6 % Baso % (Auto) 0.6 % Neut # (Auto) 5.08 (1.40-6.50) K/uL Lymph # (Auto) 0.55 L (1.2-3.4) K/uL Mcdonough # (Auto) 0.67 H (0.11-0.59) K/uL Eos # (Auto) 0.04 (0-0.50) K/uL Baso # (Auto) 0.04 (0-0.2) K/uL Immature Gran # (Auto) 0.02 (0.01-0.20) K/uL Polychromasia 1+ PT 15.4 H (9.0-12.0) Seconds INR 1.5 H (0.9-1.1) Sodium (136-145) mmol/L Potassium (3.5-5.1) mmol/L Chloride (98-107) mmol/L Carbon Dioxide (21-32) mmol/L Anion Gap (3-11) BUN (6-23) mg/dl Creatinine (0.6-1.2) mg/dl Est Cr Clr Drug Dosing ml/min Est GFR ( Amer) ml/min Est GFR (Non-Af Amer) ml/min BUN/Creatinine Ratio (10-20) Glucose (70-99(Fasting)) mg/dl Calcium (8.5-10.1) mg/dl Total Bilirubin (0.2-1.0) mg/dl AST (13-39) U/L ALT (7-52) U/L Alkaline Phosphatase (34-104) U/L Troponin I High Sens (0-14) pg/ml Total Protein (6.0-8.3) gm/dl Albumin (3.4-5.0) gm/dl Globulin (2.5-4.0) gm/dl Albumin/Globulin Ratio (0.9-2) Lipase (11-82) U/L SARS-CoV-2, RNA, NAAT (NEGATIVE) Blood Type B Positive Antibody Screen NEGATIVE Crossmatch See Detail 02/05/23 02/05/23 Range/Units 09:32 10:22 WBC (4.8-10.8) K/ul RBC (4.20-5.40) M/uL Hgb (12.0-16.0) g/dl Hct (37.0-47.0) % MCV (80.0-100.0) fL MCH (25.0-34.0) pg MCHC (32.0-36.0) g/dL RDW Std Deviation (36.4-46.3) fL RDW Coeff of [place] (11.5-14.5) % Plt Count (130-400) K/uL MPV (9.4-12.4) fL Immature Gran % (Auto) % Neut % (Auto) % Lymph % (Auto) % Mcdonough % (Auto) % Eos % (Auto) % Baso % (Auto) % Neut # (Auto) (1.40-6.50) K/uL Lymph # (Auto) (1.2-3.4) K/uL Mcdonough # (Auto) (0.11-0.59) K/uL Eos # (Auto) (0-0.50) K/uL Baso # (Auto) (0-0.2) K/uL Immature Gran # (Auto) (0.01-0.20) K/uL Polychromasia PT (9.0-12.0) Seconds INR (0.9-1.1) Sodium 140 (136-145) mmol/L Potassium 3.9 (3.5-5.1) mmol/L Chloride 106 (98-107) mmol/L Carbon Dioxide 28 (21-32) mmol/L Anion Gap 6 (3-11) BUN 30 H (6-23) mg/dl Creatinine 1.27 H (0.6-1.2) mg/dl Est Cr Clr Drug Dosing 36.9 ml/min Est GFR ( Amer) 46.5 ml/min Est GFR (Non-Af Amer) 40.1 ml/min BUN/Creatinine Ratio 23.6 H (10-20) Glucose 134 H (70-99(Fasting)) mg/dl Calcium 8.8 (8.5-10.1) mg/dl Total Bilirubin 0.7 (0.2-1.0) mg/dl AST 13 (13-39) U/L ALT 9 (7-52) U/L Alkaline Phosphatase 16 L (34-104) U/L Troponin I High Sens 9.2 (0-14) pg/ml Total Protein 6.6 (6.0-8.3) gm/dl Albumin 3.8 (3.4-5.0) gm/dl Globulin 2.8 (2.5-4.0) gm/dl Albumin/Globulin Ratio 1.4 (0.9-2) Lipase 39 (11-82) U/L SARS-CoV-2, RNA, NAAT NEGATIVE (NEGATIVE) Blood Type Antibody Screen Crossmatch Administered Medications Discontinued Medications Sodium Chloride (Nss) 500 mls @ 999 mls/hr IV .Q31M STA Stop: 02/05/23 09:42 Last Infusion: 02/05/23 10:14 Dose: 0 mls/hr Documented By: Admin: 02/05/23 09:43 Dose: 999 mls/hr Documented By: Pantoprazole Sodium 80 mg/ (Dextrose) 120 mls @ 480 mls/hr IV NOW ONE Stop: 02/05/23 11:14 Last Admin: 02/05/23 11:10 Dose: 480 mls/hr Documented By: OAM Discharge Plan Visit Data Chief Complaint: Referred by Doctor Stated Complaint: ABNORMAL LABS ED Provider: Ean Bryant Discharge Problem: Acute lower GI bleeding Forms Stand Alone Forms: My [facility] Prescriptions Prescriptions: No Action alendronate 70 mg tablet 70 mg PO WK Rx Instructions: TAKES ON SUNDAYS aspirin 81 mg Tablet,Delayed Release (Dr/Ec) 81 mg PO HS amlodipine 10 mg tablet 10 mg PO QAM lisinopril 40 mg tablet 40 mg PO QAM fluticasone propionate 50 mcg/actuation spray,suspension 2 spray INTRANASAL QAM fenofibrate nanocrystallized 145 mg tablet 145 mg PO QDD cholecalciferol (vitamin D3) [Vitamin D3] 125 mcg (5,000 unit) Tablet 125 mcg PO HS Rx Instructions: PER GMG SHOULD BE 2,000 UNITS. potassium chloride 20 mEq tablet extended release 20 meq PO QDL amoxicillin 500 mg tablet 2,000 mg PO DIRECTED PRN (Reason: PRIOR TO PROCEDURES) Rx Instructions: 4 tabs 1 hour prior to procedure Eliquis 5 mg tablet 5 mg PO UD Qty: 74 0RF Rx Instructions: Take 2 tab BID for 7 days, then continue 5 mg BID Referrals Referrals: Arlet Hernandez DO [Primary Care Provider] -
[2023-02-05 10:00] LABS: INR 1.5 (0.9-1.1); Prothrombin Time 15.4 Seconds (9.0-12.0)
[2023-02-05] MEDS ORDERED: SODIUM CHLORIDE 0.9% 250 ML IV PRN (10:13)
[2023-02-05 10:15] LABS: Hemoglobin 5.9 g/dl (12.0-16.0); Mean Corpuscular Hemoglobin 22.2 pg (25.0-34.0); Mean Corpuscular Hgb Conc 29.5 g/dL (32.0-36.0); Mean Corpuscular Volume 75.2 fL (80.0-100.0); Mean Platelet Volume 10.7 fL (9.4-12.4); Platelet Count 334 K/uL (130-400); RDW Coefficient of Variation 15.3 % (11.5-14.5); RDW Standard Deviation 41.6 fL (36.4-46.3); Red Blood Count 2.66 M/uL (4.20-5.40); Troponin I High Sensitivity 9.2 pg/ml (0-14)
[2023-02-05 10:17] LABS: Basophils # (auto) 0.04 K/uL (0-0.2); Basophils % (auto) 0.6 %; Eosinophils # (auto) 0.04 K/uL (0-0.50); Eosinophils % (auto) 0.6 %; Immature Granulocytes # (auto) 0.02 K/uL (0.01-0.20); Immature Granulocytes % (auto) 0.3 %; Lymphocytes # (auto) 0.55 K/uL (1.2-3.4); Lymphocytes % (auto) 8.6 %; Monocytes # (auto) 0.67 K/uL (0.11-0.59); Monocytes % (auto) 10.5 %; Neutrophils # (auto) 5.08 K/uL (1.40-6.50); Neutrophils % (auto) 79.4 %; Polychromasia 1+
[2023-02-05 10:25] LABS: Albumin Level 3.8 gm/dl (3.4-5.0); Bilirubin,Total 0.7 mg/dl (0.2-1.0); Calcium 8.8 mg/dl (8.5-10.1); Potassium 3.9 mmol/L (3.5-5.1)
[2023-02-05 10:30] LABS: Albumin Globulin Ratio 1.4 (0.9-2); BUN Creatinine Ratio 23.6 (10-20); Creatinine Clr Calc Pharmacy 36.9 ml/min; Est GFR (African American) 46.5 ml/min; Est GFR (Non-African American) 40.1 ml/min; Globulin 2.8 gm/dl (2.5-4.0); Total Protein 6.6 gm/dl (6.0-8.3)
[2023-02-05] MEDS ORDERED: PANTOprazole 80 MG in DEXTROSE 5% 100 ML IV ONE (11:00)
[2023-02-05] MEDS: PANTOprazole 40 MG in DEXTROSE 5% 100 ML IV SCH ×3 (11:42→22:55)
--- NOTE | 2023-02-05 12:03 | Communication Note ---
Date of Service: February 05, 2023 History and physical exam performed by me. History provided by patient and daughter who was at bedside. 77-year-old woman with hypertension, diet-control led diabetes, recent diagnosis of DVT PE A-fib during hospitalization from 12/28/2022 to 12/31/2022 who presents today with worsening fatigue, exertional dyspnea, leg swelling that has been ongoing for the past few weeks. She also reported some episodes of diarrhea with dark stools. Denied any chest pain, palpitations, abdominal pain. Denied hematuria, hemoptysis or hematemesis Patient was evaluated by PCP yesterday who evaluated, started Lasix 20 mg and sent for blood count. Patient called later decompensated ER for Outpatient hemoglobin of 6. On exam General: Well nourished, well hydrated , average body habitus, no acute distress and not ill appearing Eyes: PERRL, +pallor, EOM intact bilaterally ENMT: External ear and nose normal, oropharynx normal Respiratory: Normal respiratory effort, no respiratory distress, lungs clear to auscultation, no crackles and no wheezes Cardiovascular: Irregularly irregular S1 S2 Gastrointestinal (Abdomen): Abdomen is not distended, soft, non-tender to palpation, no guarding, no palpable hepatosplenomegaly, normal bowel sounds Musculoskeletal: +bilateral pitting pedal edema Neurologic: Alert and oriented x 3, No focal weakness, sensation grossly intact Psychiatric: Euthymic affect Labs notable for hemoglobin of 5.9 [was 10.2 on 12/31/2022], INR of 1.5, creatinine of 1.27 Symptomatic anemia Possible GI bleed. Patient on anticoagulation. Hold Eliquis for now. Continue IV PPI Transfused 2 PRBC. GI consulted. Discussed with GI for possible endoscopy. N.p.o. for now. Monitor CBC every 8h. Transfuse as needed to keep hemoglobin above 7 We will give IV Lasix 40 with transfusion. Attending tomorrow may need to adjust dose of Lasix depending on volume status. Educated patient and daughter about plans. Once stabilized, patient and provider will have further conversation about anticoagulation or not. Other plans as detailed by Valerie KHANNA
--- NOTE | 2023-02-05 12:27 | Gastrointestinal Consultation ---
Date of Consultation February 05, 2023 Assessment & Plan (1) Melena: (2) Anemia: (3) History of DVT (deep vein thrombosis): Plan This is a 77-year-old female with history of recent diagnosis of A-fib, DVT/PE, recent start on Eliquis last month, with several weeks of dark/black stools, came in with symptomatic anemia w/ weakness, SOB, found to have acute on chronic anemia, last hemoglobin last month was 10, today is 5.9, with mildly elevated BUN. She was Hemoccult positive here in the ER, however on BETH had scant brown stool in the rectal vault. Abdomen is soft and nontender. Vital signs are stable. Presentation concerning for possible upper GI bleed in the setting of anticoagulation. Keep n.p.o. Continue IVF Continue IV PPI drip PRBC transfusion as ordered. Repeat hemoglobin planned for around 3:00. Trend H&H, transfuse as needed We will tentatively plan for EGD today, pending hemoglobin improvement greater than 7 Please monitor and document all GI output Prior to endoscopic evaluation, we appreciate assistance in the management and correction of valiente laboratory elements including the following: Please optimize pt's hemoglobin >7, INR <2, platelets >50,000, potassium levels >3.5 but <5.3, and sodium levels within 5 points of the reference range. Thank you for allowing us to participate in the care of this patient. Please call with any acute changes, questions or concerns. Please see addendum below with additional recommendation from my supervising physician. Supervising Physician Co-Signing Physician Notes I personally saw and evaluated the patient on 02/05/23 with Joanna Greer PA-C and agree with her findings and plan of care. 77 y/o F with newly diagnosed afib as well as DVT/PE recently started on Eliquis last month who presented with weakness and dyspnea found to have a hgb of 5.9 from baseline of 10 when checked last month. She endorses some black stools over the past week but no hematochezia or any hematemesis/coffee ground emesis. Some intermittent epigastric pain. Last had a colonoscopy in 2020 which showed diverticulosis but has never had an EGD before. hgb did improve to 7.5 after 2 units PRBC. No further bleeding since she has been here and last BM was brown. she has remained HDS without any hypotension. Denies any NSAID use or any prior history of GI bleeding. On physical exam patient's abdomen is soft, non-tender, non-distended. 1+ LE edema. Had initially planned for EGD today however per anesthesia she had to receive both units of blood prior to coming to endoscopy and at that point given time she would have to be done in the OR after the other cases. As patient is currently HDS without any further bleeding she does not need emergent EGD today. I discussed the case with the GI physician covering this weekend, Dr. Boyer, who is aware and will scope the patient if H/H drops over the weekend or she develops further bleeding. Otherwise the plan will be for EGD on Wednesday. Remain on PPI 40 mg BID, can give clears today but NPO at midnight on wednesday, continue to trend H/H and transfuse for hgb <7. Please notify GI social organization professor if patient develops further bleeding or becomes hemodynamically unstable. Nerissa Mclaughlin DO Gastroenterology and Hepatology History of Present Illness Reason for Consultation: possible GIB Requesting Physician: JEY Morgan History of Present Illness This is a 77 y/o female with PMHx T2DM, CKD stage III, DLD, HTN, GERD, osteoporosis, and a recent diagnosis of new onset atrial fibrillation and DVT/PE on Eliquis started last month during admission, who comes in to the ER today for abnormal labs. Lately has been feeling fatigued and weak, SOB, increased heart rate and leg edema. Metoprolol was increased and pt was started on some Lasix. She has noticed 1 solid dark/black stool like charcoal daily for the last few weeks, last was last evening. Also had an episodes of hematochezia few weeks ago. Previously, stool was brown and was having some looser stool. PCP ordered labs. HGB yesterday was 6; had been 10.2 when last checked on 12/31. Pt was advised to come to the ER. Upon arrival labs notable for HGB 5.9, crit 20%, BUN 30 (was 25 last month). INR 1.5., cr 1.27. Stool was Heme occult +. VSS. Her daughter is at bedside who helps with the history. Last dose of Eliquis was this AM. She is being transfused pRBC at present, with another one ordered. PPI bolus and gtt started. Pt had a colonoscopy in 2020 showed diverticulosis. Denies prior h/o EGD. She has a history of repair of colo-vesicular fistula. No h/o RYGB or other abd surgeries. Denies NSAID, tobacco, ETOH use. Currently denies abdominal pain, heartburn, dysphagia, nausea, vomiting or hematemesis, fevers or chills, syncope. Allergies Allergy/AdvReac Type Severity Reaction Status Date / Time house dust Allergy Intermediate SNEEZING, Verified 12/28/22 18:42 CONGESTION pollen extracts Allergy Intermediate SNEEZING, Verified 12/28/22 18:42 CONGESTION betamethasone AdvReac Severe ELEVATED Verified 12/28/22 18:42 BLOOD SUGAR Home Medications Medication Instructions Recorded Confirmed Type alendronate 70 mg tablet 70 mg PO WK 12/28/22 02/05/23 History amlodipine 10 mg tablet 10 mg PO QAM 12/28/22 02/05/23 History amoxicillin 500 mg tablet 2,000 mg PO DIRECTED PRN PRIOR 12/28/22 02/05/23 History TO PROCEDURES cholecalciferol (vitamin D3) 125 125 mcg PO HS 12/28/22 02/05/23 History mcg (5,000 unit) tablet (Vitamin D3) fenofibrate nanocrystallized 145 145 mg PO QDD 12/28/22 02/05/23 History mg tablet fluticasone propionate 50 2 spray intranasal QAM 12/28/22 02/05/23 History mcg/actuation nasal spray,suspension lisinopril 40 mg tablet 40 mg PO QAM 12/28/22 02/05/23 History potassium chloride 20 mEq 20 meq PO QDL 12/28/22 02/05/23 History tablet,extended release apixaban 5 mg tablet (Eliquis) 5 mg PO BID 02/05/23 02/05/23 History dicyclomine 10 mg capsule 10 mg PO QID PRN Abdominal Pain 02/05/23 02/05/23 History furosemide 20 mg tablet 20 mg PO DAILY 02/05/23 02/05/23 History metoprolol succinate 25 mg 37.5 mg PO BID 02/05/23 02/05/23 History tablet,extended release 24 hr Patient History Medical History Atrial fibrillation CKD (chronic kidney disease), stage III Diet-controlled type 2 diabetes mellitus GERD (gastroesophageal reflux disease) History of DVT (deep vein thrombosis) History of pulmonary embolism HLD (hyperlipidemia) HTN (hypertension) Osteoporosis Surgical History History of partial colectomy History of total left knee replacement (TKR) Social History Smoking Status: Never smoker Hx Alcohol Use: No Hx Substance Use: No Preferred Language: Telugu Communication Ability: Effective Mill Dresser Required: No Beliefs That Will Affect Care: None Current Living Situation: Alone Other Information That Helps Us Care for You: No Feels Safe at Home: Yes Safety Concerns: Feels Safe At This Time Assistive Devices: Denture - Upper, Denture - Lower and Glasses Review of Systems Review of Systems: All systems reviewed & are unremarkable except as noted in HPI & below Physical Exam Constitutional: well developed, well nourished and comfortable; no acute distress Eyes: Sclera anicteric, + conjunctival pallor ENMT: moist mucous membranes Neck: trachea midline supple Respiratory: normal respiratory effort, lungs clear to auscultation Cardiovascular: Irregularly irregular, rate 90's, mild 1+ bilateral LE edema Gastrointestinal (Abdomen): normal bowel sounds, soft, nontender, no hepatosplenomegaly Inspection/Auscultation: abdomen not distended Rectal: + scant brown stool in rectal vault. small nonthrombosed external hemorrhoid. No rectal masses on BETH. No melena, hematochezia Skin: no rashes, warm and dry Neurologic: alert and oriented x 3, no obvious focal neuro deficit Psychiatric: normal mood and affect Results & Data ([facility]) Vital Signs (Past 12 Hours) Vital Signs Temp Pulse Resp BP Pulse Ox O2 Del Method O2 Flow Rate 02/05/23 12:17 36.7 C 88 21 159/78 H 97 0 02/05/23 12:08 Room Air 02/05/23 12:02 36.7 C 84 23 154/87 H 97 0 02/05/23 11:44 36.5 C 83 18 135/89 97 02/05/23 09:41 80 02/05/23 09:12 98 Room Air 02/05/23 09:02 36.7 C 86 20 124/68 99 Room Air Laboratory Results 02/05/23 02/05/23 02/05/23 Range/Units 10:22 09:32 09:32 WBC (4.8-10.8) K/ul RBC (4.20-5.40) M/uL Hgb (12.0-16.0) g/dl Hct (37.0-47.0) % MCV (80.0-100.0) fL MCH (25.0-34.0) pg MCHC (32.0-36.0) g/dL RDW Std Deviation (36.4-46.3) fL RDW Coeff of [place] (11.5-14.5) % Plt Count (130-400) K/uL MPV (9.4-12.4) fL Immature Gran % (Auto) % Neut % (Auto) % Lymph % (Auto) % Dewitt % (Auto) % Eos % (Auto) % Baso % (Auto) % Neut # (Auto) (1.40-6.50) K/uL Lymph # (Auto) (1.2-3.4) K/uL [place]itt # (Auto) (0.11-0.59) K/uL Eos # (Auto) (0-0.50) K/uL Baso # (Auto) (0-0.2) K/uL Immature Gran # (Auto) (0.01-0.20) K/uL Polychromasia PT 15.4 H (9.0-12.0) Seconds INR 1.5 H (0.9-1.1) Sodium 140 (136-145) mmol/L Potassium 3.9 (3.5-5.1) mmol/L Chloride 106 (98-107) mmol/L Carbon Dioxide 28 (21-32) mmol/L Anion Gap 6 (3-11) BUN 30 H (6-23) mg/dl Creatinine 1.27 H (0.6-1.2) mg/dl Est Cr Clr Drug Dosing 36.9 ml/min Est GFR ( Amer) 46.5 ml/min Est GFR (Non-Af Amer) 40.1 ml/min BUN/Creatinine Ratio 23.6 H (10-20) Glucose 134 H (70-99(Fasting)) mg/dl Calcium 8.8 (8.5-10.1) mg/dl Total Bilirubin 0.7 (0.2-1.0) mg/dl AST 13 (13-39) U/L ALT 9 (7-52) U/L Alkaline Phosphatase 16 L (34-104) U/L Troponin I High Sens 9.2 (0-14) pg/ml Total Protein 6.6 (6.0-8.3) gm/dl Albumin 3.8 (3.4-5.0) gm/dl Globulin 2.8 (2.5-4.0) gm/dl Albumin/Globulin Ratio 1.4 (0.9-2) Lipase 39 (11-82) U/L SARS-CoV-2, RNA, NAAT NEGATIVE (NEGATIVE) Blood Type Antibody Screen Crossmatch 02/05/23 02/05/23 Range/Units 09:32 09:32 WBC 6.40 (4.8-10.8) K/ul RBC 2.66 L (4.20-5.40) M/uL Hgb 5.9 L* (12.0-16.0) g/dl Hct 20.0 L* (37.0-47.0) % MCV 75.2 L (80.0-100.0) fL MCH 22.2 L (25.0-34.0) pg MCHC 29.5 L (32.0-36.0) g/dL RDW Std Deviation 41.6 (36.4-46.3) fL RDW Coeff of [place] 15.3 H (11.5-14.5) % Plt Count 334 (130-400) K/uL MPV 10.7 (9.4-12.4) fL Immature Gran % (Auto) 0.3 % Neut % (Auto) 79.4 % Lymph % (Auto) 8.6 % Dewitt % (Auto) 10.5 % Eos % (Auto) 0.6 % Baso % (Auto) 0.6 % Neut # (Auto) 5.08 (1.40-6.50) K/uL Lymph # (Auto) 0.55 L (1.2-3.4) K/uL Dewitt # (Auto) 0.67 H (0.11-0.59) K/uL Eos # (Auto) 0.04 (0-0.50) K/uL Baso # (Auto) 0.04 (0-0.2) K/uL Immature Gran # (Auto) 0.02 (0.01-0.20) K/uL Polychromasia 1+ PT (9.0-12.0) Seconds INR (0.9-1.1) Sodium (136-145) mmol/L Potassium (3.5-5.1) mmol/L Chloride (98-107) mmol/L Carbon Dioxide (21-32) mmol/L Anion Gap (3-11) BUN (6-23) mg/dl Creatinine (0.6-1.2) mg/dl Est Cr Clr Drug Dosing ml/min Est GFR ( Amer) ml/min Est GFR (Non-Af Amer) ml/min BUN/Creatinine Ratio (10-20) Glucose (70-99(Fasting)) mg/dl Calcium (8.5-10.1) mg/dl Total Bilirubin (0.2-1.0) mg/dl AST (13-39) U/L ALT (7-52) U/L Alkaline Phosphatase (34-104) U/L Troponin I High Sens (0-14) pg/ml Total Protein (6.0-8.3) gm/dl Albumin (3.4-5.0) gm/dl Globulin (2.5-4.0) gm/dl Albumin/Globulin Ratio (0.9-2) Lipase (11-82) U/L SARS-CoV-2, RNA, NAAT (NEGATIVE) Blood Type B Positive Antibody Screen NEGATIVE Crossmatch See Detail
--- NOTE | 2023-02-05 12:43 | History & Physical Report ---
Date of Service February 05, 2023 Assessment & Plan (1) Anemia: (2) Melena: Plan: Admit to telemetry Patient presenting by referral PCPs office for evaluation of anemia. Patient recently admitted for new onset atrial fibrillation and DVT/PE, started on Eliquis. Patient reports diarrhea and melena since returning home from the hospital. In the ED, Hgb 5.9 (10.2 on 12/31/22). Stool is heme positive. VSS. S/p Protonix bolus and started on drip in ED, will continue Hold Eliquis Type and cross 2 units PRBC, recheck H&H at 1500 due to possible EGD today GI consult, case discussed with Joanna Nelson PA-C (3) Lower extremity edema: Plan: Possibly due to anemia Recent echo EF 55 to 60%, mild mitral and tricuspid regurgitation PCP started Lasix 20 mg daily on 02/04 --patient instructed to take for 3 days Will give Lasix 40 mg IV in between PRBC units, resume 20 mg p.o. dosing tomorrow - may need dose adjustment Noted patient is on amlodipine (4) Atrial fibrillation: Plan: Recent diagnosis of Metoprolol increased to 37.5 mg BID by PCP yesterday due to increased heart rate with activity -- anemia likely contributing to this. Will continue increased dose and monitor heart rate. Recent outpatient ZIO showed 100% A-fib burden Holding Eliquis due to GI bleeding --resume pending GI work-up/risk vs. benefit. May need to transition to Coumadin. (5) History of DVT (deep vein thrombosis): (6) History of pulmonary embolism: Plan: Anticoagulation plan as above (7) HTN (hypertension): Plan: BP controlled, continue amlodipine, lisinopril, metoprolol (8) Diet-controlled type 2 diabetes mellitus: Plan: Hgb A1c 5.9 12/2022 Monitor glucose, NovoLog per protocol ordered (9) CKD (chronic kidney disease), stage III: Plan: Baseline creatinine ~ 1.1 Creatinine 1.2 today Monitor renal functions (10) Breast lesion: Plan: During recent mission, patient was noted to have left breast lesion on CT chest Has an upcoming appointment with [facility] DVT PROPHYLAXIS SCDs due to GI bleeding/anemia I spent a total of 75 minutes coordinating, documenting, and providing care for this patient excluding time spent in the performance of separately billed services. This included personally reviewing all current laboratories and imaging studies, medication reconciliation, outpatient chart review, and discu ssion with specialists. History of Present Illness Chief Complaint: Referred by PCP for low blood counts Primary Care Provider: Arlet Hernandez DO 77-year-old female with PMH diet-controlled DM type II, CKD stage III, dyslipidemia, HTN, GERD, osteoporosis, and a recent diagnosis of new onset atrial fibrillation and DVT/PE on Eliquis, and other problems listed below who presents to the ED by referral of PCP for evaluation of anemia. History obtained from patient by Dr. Montez and my personal review of outpatient PCP and cardiology notes as well as notes of recent inpatient admission. Patient recently admitted to [facility] 12/28 through 12/31 for new onset atrial fibrillation and DVT/PE. Patient started on Eliquis and metoprolol. Had outpatient ZIO monitor completed that showed 100% A-fib burden. Patient seen by PCP yesterday for complaints of generalized weakness and exertional shortness of breath. Heart rate increased to 120s to 130s with activity. Metoprolol was increased to 37.5 mg twice daily. Patient was also noted to have increased lower extremity edema and Lasix 20 mg daily x 3 days was ordered. Labs were ordered and showed Hgb 6.0. Patient was referred to the ED for further evaluation. Patient reports having diarrhea since last hospitalization. PCP started dicyclomine. Stools also noted to be very dark/almost black. Patient denies abdominal pain, nausea, vomiting. Denies chest pain and palpitations. No lightheadedness, dizziness, diaphoresis, syncopal events. Denies fevers and chills. No urinary symptoms. In the ED, Hgb 5.9. Patient was typed and crossed for 2 units PRBC. She was given Protonix bolus and started on a drip. Allergies Allergy/AdvReac Type Severity Reaction Status Date / Time house dust Allergy Intermediate SNEEZING, Verified 12/28/22 18:42 CONGESTION pollen extracts Allergy Intermediate SNEEZING, Verified 12/28/22 18:42 CONGESTION betamethasone AdvReac Severe ELEVATED Verified 12/28/22 18:42 BLOOD SUGAR Home Medications Medication Instructions Recorded Confirmed Type alendronate 70 mg tablet 70 mg PO WK 12/28/22 02/05/23 History amlodipine 10 mg tablet 10 mg PO QAM 12/28/22 02/05/23 History amoxicillin 500 mg tablet 2,000 mg PO DIRECTED PRN PRIOR 12/28/22 02/05/23 History TO PROCEDURES cholecalciferol (vitamin D3) 125 125 mcg PO HS 12/28/22 02/05/23 History mcg (5,000 unit) tablet (Vitamin D3) fenofibrate nanocrystallized 145 145 mg PO QDD 12/28/22 02/05/23 History mg tablet fluticasone propionate 50 2 spray intranasal QAM 12/28/22 02/05/23 History mcg/actuation nasal spray,suspension lisinopril 40 mg tablet 40 mg PO QAM 12/28/22 02/05/23 History potassium chloride 20 mEq 20 meq PO QDL 12/28/22 02/05/23 History tablet,extended release apixaban 5 mg tablet (Eliquis) 5 mg PO BID 02/05/23 02/05/23 History dicyclomine 10 mg capsule 10 mg PO QID PRN Abdominal Pain 02/05/23 02/05/23 History furosemide 20 mg tablet 20 mg PO DAILY 02/05/23 02/05/23 History metoprolol succinate 25 mg 37.5 mg PO BID 02/05/23 02/05/23 History tablet,extended release 24 hr Past Med/Surg History Medical History Atrial fibrillation CKD (chronic kidney disease), stage III Diet-controlled type 2 diabetes mellitus GERD (gastroesophageal reflux disease) History of DVT (deep vein thrombosis) History of pulmonary embolism HLD (hyperlipidemia) HTN (hypertension) Osteoporosis Surgical History History of partial colectomy History of total left knee replacement (TKR) Social History Smoking Status: Never smoker Hx Alcohol Use: No Hx Substance Use: No Preferred Language: Greenlandic Communication Ability: Effective Window And Door Installer Required: No Beliefs That Will Affect Care: None Current Living Situation: Alone Other Information That Helps Us Care for You: No Feels Safe at Home: Yes Safety Concerns: Feels Safe At This Time Assistive Devices: Denture - Upper, Denture - Lower and Glasses Review of Systems Review of Systems: ROS per HPI, all other systems reviewed and negative Physical Exam Physical Exam: please refer to Dr. Montez's addendum for physical exam Results & Data Results & Data ([facility]) Vital Signs (Past 12 Hours) Vital Signs Temp Pulse Resp BP Pulse Ox O2 Del Method O2 Flow Rate 02/05/23 12:17 36.7 C 88 21 159/78 H 97 0 02/05/23 12:08 Room Air 02/05/23 12:02 36.7 C 84 23 154/87 H 97 0 02/05/23 11:44 36.5 C 83 18 135/89 97 02/05/23 09:41 80 02/05/23 09:12 98 Room Air 02/05/23 09:02 36.7 C 86 20 124/68 99 Room Air Laboratory Results Short CBC 02/05/23 Range/Units 09:32 WBC 6.40 (4.8-10.8) K/ul Hgb 5.9 L* (12.0-16.0) g/dl Hct 20.0 L* (37.0-47.0) % Plt Count 334 (130-400) K/uL BMP 02/05/23 09:32 Sodium 140 Potassium 3.9 Chloride 106 Carbon Dioxide 28 BUN 30 H Creatinine 1.27 H Glucose 134 H Calcium 8.8 Liver Function 02/05/23 Range/Units 09:32 Total Bilirubin 0.7 (0.2-1.0) mg/dl AST 13 (13-39) U/L ALT 9 (7-52) U/L Alkaline Phosphatase 16 L (34-104) U/L Albumin 3.8 (3.4-5.0) gm/dl Code Status & VTE Plan Code Status Patient is a full code as per Dr. Montez's discussion with her. VTE Prophylaxis Plan VTE Prophylaxis will be ordered: Yes Supervising Physician Co-Signing Physician Notes History and physical exam performed by me. History provided by patient and daughter who was at bedside. 77-year-old woman with hypertension, diet- controlled diabetes, recent diagnosis of DVT PE A-fib during hospitalization from 12/28/2022 to 12/31/2022 who presents today with worsening fatigue, exertional dyspnea, leg swelling that has been ongoing for the past few weeks. She also reported some episodes of diarrhea with dark stools. Denied any chest pain, palpitations, abdominal pain. Denied hematuria, hemoptysis or hematemesis Patient was evaluated by PCP yesterday who evaluated, started Lasix 20 mg and sent for blood count. Patient called later decompensated ER for Outpatient hemoglobin of 6. On exam General: Well nourished, well hydrated , average body habitus, no acute distress and not ill appearing Eyes: PERRL, +pallor, EOM intact bilaterally ENMT: External ear and nose normal, oropharynx normal Respiratory: Normal respiratory effort, no respiratory distress, lungs clear to auscultation, no crackles and no wheezes Cardiovascular: Irregularly irregular S1 S2 Gastrointestinal (Abdomen): Abdomen is not distended, soft, non-tender to palpation, no guarding, no palpable hepatosplenomegaly, normal bowel sounds Musculoskeletal: +bilateral pitting pedal edema Neurologic: Alert and oriented x 3, No focal weakness, sensation grossly intact Psychiatric: Euthymic affect Labs notable for hemoglobin of 5.9 [was 10.2 on 12/31/2022], INR of 1.5, creatinine of 1.27 Symptomatic anemia Possible GI bleed. Patient on anticoagulation. Hold Eliquis for now. Continue IV PPI Transfused 2 PRBC. GI consulted. Discussed with GI for possible endoscopy. N.p.o. for now. Monitor CBC every 8h. Transfuse as needed to keep hemoglobin above 7 We will give IV Lasix 40 with transfusion. Attending tomorrow may need to adjust dose of Lasix depending on volume status. Educated patient and daughter about plans. Once stabilized, patient and provider will have further conversation about anticoagulation or not. Other plans as detailed by Valerie KHANNA
[2023-02-05] MEDS ORDERED: FUROSEMIDE 40 MG/4 ML VIAL IV ONE (13:20)
[2023-02-05] MEDS ORDERED: ACETAMINOPHEN 325 MG TAB PO PRN (13:20)
[2023-02-05 14:46] LABS: Hematocrit (blood only) 24.7 % (37.0-47.0); Hemoglobin 7.5 g/dl (12.0-16.0)
[2023-02-05] MEDS: FENOFIBRATE NANOCRYSTALLIZED 145 MG TABLET PO SCH (17:14)
[2023-02-05] MEDS: METOPROLOL SUCC 25MG EXT REL TAB PO SCH (21:43)
[2023-02-05 22:55] LABS: Hematocrit (blood only) 25.5 % (37.0-47.0); Mean Corpuscular Hemoglobin 24.1 pg (25.0-34.0); Mean Corpuscular Hgb Conc 31.4 g/dL (32.0-36.0); Mean Corpuscular Volume 76.8 fL (80.0-100.0); Mean Platelet Volume 10.3 fL (9.4-12.4); Platelet Count 289 K/uL (130-400); RDW Coefficient of Variation 15.9 % (11.5-14.5); RDW Standard Deviation 43.8 fL (36.4-46.3); Red Blood Count 3.32 M/uL (4.20-5.40); White Blood Count 6.63 K/ul (4.8-10.8)
[2023-02-05] MEDS ORDERED: Nursing to Pharmacy Communication SCH (23:45)
[2023-02-06] MEDS: PANTOprazole 40 MG in DEXTROSE 5% 100 ML IV SCH ×4 (03:56→20:19)
[2023-02-06 05:11] LABS: Hematocrit (blood only) 24.8 % (37.0-47.0); Hemoglobin 7.8 g/dl (12.0-16.0); Mean Corpuscular Hgb Conc 31.5 g/dL (32.0-36.0); Mean Corpuscular Volume 76.3 fL (80.0-100.0); Mean Platelet Volume 11.1 fL (9.4-12.4); Nucleated RBC # (auto) 0.02 K/uL (0-0.12); Nucleated RBC % (auto) 0.4 %; Platelet Count 288 K/uL (130-400); RDW Coefficient of Variation 15.8 % (11.5-14.5); RDW Standard Deviation 43.7 fL (36.4-46.3); Red Blood Count 3.25 M/uL (4.20-5.40)
[2023-02-06 05:30] LABS: BUN Creatinine Ratio 18.3 (10-20); Calcium 8.2 mg/dl (8.5-10.1); Creatinine Clr Calc Pharmacy 36.3 ml/min; Est GFR (African American) 46.9 ml/min; Est GFR (Non-African American) 40.5 ml/min; Potassium 3.1 mmol/L (3.5-5.1)
[2023-02-06] MEDS ORDERED: POTASSIUM CHLORIDE CRTAB 20 MEQ TABCR PO STA (08:11)
[2023-02-06] MEDS: METOPROLOL SUCC 25MG EXT REL TAB PO SCH ×2 (08:59→20:23)
[2023-02-06] MEDS: amLODIPine BESYLATE 5 MG TAB PO SCH (09:00)
[2023-02-06] MEDS: FUROSEMIDE 20 MG TAB PO SCH (09:00)
[2023-02-06] MEDS: lisinopril 40 MG TAB PO SCH (09:00)
--- NOTE | 2023-02-06 09:21 | Electrocardiogram Report ---
Test Reason : Blood Pressure : / mmHG Vent. Rate : 091 BPM Atrial Rate : 078 BPM P-R Int : 000 ms QRS Dur : 076 ms QT Int : 294 ms P-R-T Axes : 000 016 241 degrees QTc Int : 361 ms Atrial fibrillation Low voltage QRS Cannot rule out Anterior infarct , age undetermined Abnormal ECG When compared with ECG of 29-DEC-2022 10:02, QRS voltage has decreased Confirmed by Paresh Nayak ([id number]) on 02/06/2023 9:21:06 AM Referred By: ED Confirmed By:Paresh Nayak
[2023-02-06] MEDS: POTASSIUM CHLORIDE CRTAB 20 MEQ TABCR PO SCH (11:39)
[2023-02-06] MEDS: FENOFIBRATE NANOCRYSTALLIZED 145 MG TABLET PO SCH (15:42)
--- NOTE | 2023-02-06 16:58 | Hospitalist Progress Note ---
Date of Service February 06, 2023 Assessment & Plan (1) Anemia: (2) Melena: Plan: per admitting service notes with addendum: Admit to telemetry Patient presenting by referral PCPs office for evaluation of anemia. Patient recently admitted for new onset atrial fibrillation and DVT/PE, started on Eliquis. Patient reports diarrhea and melena since returning home from the hospital. In the ED, Hgb 5.9 (10.2 on 12/31/22). Stool is heme positive. VSS. S/p Protonix bolus and started on drip in ED, will continue Hold Eliquis Type and cross 2 units PRBC, recheck H&H at 1500 due to possible EGD today GI consult, case discussed with Joanna Nelson PA-C 02/06 No recurrence of GI bleed while admitted Hemoglobin increased from 5.9, now 7.8 after 2 units of packed RBCs Discussed with gastroenterology service requesting EGD this week Dr. Thompson recommends EGD on Wednesday to prevent complications as patient was on Eliquis Continue Protonix twice a day (3) Lower extremity edema: Plan: Possibly due to anemia Recent echo EF 55 to 60%, mild mitral and tricuspid regurgitation PCP started Lasix 20 mg daily on 02/04 --patient instructed to take for 3 days Will give Lasix 40 mg IV in between PRBC units, resume 20 mg p.o. dosing tomorrow - may need dose adjustment Noted patient is on amlodipine 02/06 Mild edema Monitor closely (4) Atrial fibrillation: Plan: Recent diagnosis of Metoprolol increased to 37.5 mg BID by PCP yesterday due to increased heart rate with activity -- anemia likely contributing to this. Will continue increased dose and monitor heart rate. Recent outpatient ZIO showed 100% A-fib burden Holding Eliquis due to GI bleeding --resume pending GI work-up/risk vs. benefit. May need to transition to Coumadin. 02/06 HR stable (5) History of DVT (deep vein thrombosis): (6) History of pulmonary embolism: Plan: Anticoagulation plan as above (7) HTN (hypertension): Plan: BP controlled, continue amlodipine, lisinopril, metoprolol (8) Diet-controlled type 2 diabetes mellitus: Plan: Hgb A1c 5.9 12/2022 Monitor glucose, NovoLog per protocol ordered (9) CKD (chronic kidney disease), stage III: Plan: Baseline creatinine ~ 1.1 Creatinine 1.2 today Monitor renal functions crea stable 1.2 (10) Breast lesion: Plan: During recent mission, patient was noted to have left breast lesion on CT chest Has an upcoming appointment with [facility] DVT PROPHYLAXIS SCDs due to GI bleeding/anemia plan of care discussed with patient in detail and at length all questions answered she is understanding, agreeable, comfortable with the plan of care Admission and Anticipated Discharge Date Admission Date: February 05, 2023 Subjective Follow-up for anemia, GI bleed, etc. Seen sitting up in bed, comfortable, not in distress States she feels better today compared to yesterday No dizziness, shortness of breath, chest pain No BM since yesterday No abdominal pain, nausea vomiting No other symptoms Review of Systems Review of Systems: all noted and negative except for above Physical Exam Physical Exam: General- oriented x 3, not in distress, speaks in sentences with no effort or accessory muscle use Eyes- anicteric Neck- no JVD Lungs- clear BS bilaterally, no rales/wheezes Heart- normal rate, regular rhythm; no murmurs Abdomen- normal bowel sounds, nondistended, soft, nontender Extremities- no pretibial edema, no calf tenderness Neuro- alert, oriented x 3; no gross focal neurologic deficits Skin- warm & dry Results & Data Results & Data ([facility]) Vital Signs (Past 12 Hours) Vital Signs Temp Pulse Pulse Resp BP Pulse Ox O2 Del Method 02/06/23 15:04 36.5 C 71 18 118/63 97 Room Air 02/06/23 11:18 37.0 C 73 18 118/73 96 Room Air 02/06/23 08:05 71 02/06/23 06:29 36.7 C 76 16 136/80 95 Room Air all noted and reviewed including below
[2023-02-07] MEDS: PANTOprazole 40 MG in DEXTROSE 5% 100 ML IV SCH ×5 (01:24→22:39)
[2023-02-07] MEDS ORDERED: Nursing to Pharmacy Communication SCH (05:00)
[2023-02-07] MEDS: METOPROLOL SUCC 25MG EXT REL TAB PO SCH ×2 (09:08→20:11)
[2023-02-07] MEDS: FUROSEMIDE 20 MG TAB PO SCH (09:10)
[2023-02-07] MEDS: lisinopril 40 MG TAB PO SCH (09:10)
[2023-02-07] MEDS: amLODIPine BESYLATE 5 MG TAB PO SCH (09:10)
[2023-02-07 09:36] LABS: Basophils # (auto) 0.03 K/uL (0-0.2); Basophils % (auto) 0.7 %; Eosinophils # (auto) 0.11 K/uL (0-0.50); Eosinophils % (auto) 2.6 %; Hematocrit (blood only) 28.3 % (37.0-47.0); Hemoglobin 8.6 g/dl (12.0-16.0); Immature Granulocytes # (auto) 0.01 K/uL (0.01-0.20); Immature Granulocytes % (auto) 0.2 %; Lymphocytes # (auto) 0.58 K/uL (1.2-3.4); Lymphocytes % (auto) 13.6 %; Mean Corpuscular Hemoglobin 23.8 pg (25.0-34.0); Mean Corpuscular Hgb Conc 30.4 g/dL (32.0-36.0); Mean Corpuscular Volume 78.2 fL (80.0-100.0); Monocytes # (auto) 0.54 K/uL (0.11-0.59); Monocytes % (auto) 12.7 %; Neutrophils # (auto) 2.99 K/uL (1.40-6.50); Neutrophils % (auto) 70.2 %; Platelet Count 305 K/uL (130-400); RDW Coefficient of Variation 16.4 % (11.5-14.5); RDW Standard Deviation 46.3 fL (36.4-46.3); Red Blood Count 3.62 M/uL (4.20-5.40); White Blood Count 4.26 K/ul (4.8-10.8)
[2023-02-07 09:51] LABS: Calcium 8.3 mg/dl (8.5-10.1); Creatinine Clr Calc Pharmacy 37.5 ml/min; Est GFR (African American) 49.3 ml/min; Est GFR (Non-African American) 42.5 ml/min; Potassium 3.6 mmol/L (3.5-5.1)
[2023-02-07] MEDS: POTASSIUM CHLORIDE CRTAB 20 MEQ TABCR PO SCH (12:55)
--- NOTE | 2023-02-07 17:18 | Hospitalist Progress Note ---
Date of Service February 07, 2023 Assessment & Plan (1) Anemia: (2) Melena: Plan: per admitting service notes with addendum: Admit to telemetry Patient presenting by referral PCPs office for evaluation of anemia. Patient recently admitted for new onset atrial fibrillation and DVT/PE, started on Eliquis. Patient reports diarrhea and melena since returning home from the hospital. In the ED, Hgb 5.9 (10.2 on 12/31/22). Stool is heme positive. VSS. S/p Protonix bolus and started on drip in ED, will continue Hold Eliquis Type and cross 2 units PRBC, recheck H&H at 1500 due to possible EGD today GI consult, case discussed with Joanna Nelson PA-C 02/07 No recurrence of GI bleed while admitted Hemoglobin increased from 5.9, stable at around 9 since yesterday, after 2 units of packed RBCs Patient for EGD tomorrow Continue Protonix drip (3) Lower extremity edema: Plan: Possibly due to anemia Recent echo EF 55 to 60%, mild mitral and tricuspid regurgitation PCP started Lasix 20 mg daily on 02/04 --patient instructed to take for 3 days Will give Lasix 40 mg IV in between PRBC units, resume 20 mg p.o. dosing tomorrow - may need dose adjustment Noted patient is on amlodipine 02/07 Mild edema Monitor closely (4) Atrial fibrillation: Plan: Recent diagnosis of Metoprolol increased to 37.5 mg BID by PCP yesterday due to increased heart rate with activity -- anemia likely contributing to this. Will continue increased dose and monitor heart rate. Recent outpatient ZIO showed 100% A-fib burden Holding Eliquis due to GI bleeding --resume pending GI work-up/risk vs. benefit. May need to transition to Coumadin. 3 HR stable (5) History of DVT (deep vein thrombosis): (6) History of pulmonary embolism: Plan: Diagnosed during last admission Hopefully can resume anticoagulation tomorrow after EGD once GI allows (7) HTN (hypertension): Plan: BP controlled, continue amlodipine, lisinopril, metoprolol (8) Diet-controlled type 2 diabetes mellitus: Plan: Hgb A1c 5.9 12/2022 Monitor glucose, NovoLog per protocol ordered (9) CKD (chronic kidney disease), stage III: Plan: Baseline creatinine ~ 1.1 Creatinine 1.2 today Monitor renal functions crea stable 1.2 (10) Breast lesion: Plan: During recent mission, patient was noted to have left breast lesion on CT chest Has an upcoming appointment with [facility] DVT PROPHYLAXIS SCDs due to GI bleeding/anemia Disposition Anticipate discharge to home when medically stable plan of care discussed with patient in detail and at length all questions answered she is understanding, agreeable, comfortable with the plan of care Admission and Anticipated Discharge Date Admission Date: February 05, 2023 Subjective Follow-up for acute blood loss anemia, melena, etc. Seen sitting up in bedside chair, comfortable, not in distress No acute events overnight No recurrence of GI bleeding No melena or hematochezia States she feels okay overall No abdominal pain, nausea vomiting, fevers or chills No other symptoms Review of Systems Review of Systems: all noted and negative except for above Physical Exam Physical Exam: General- oriented x 3, not in distress, speaks in sentences with no effort or accessory muscle use Eyes- anicteric Neck- no JVD Lungs- clear breath sounds bilaterally, no crackles or wheezing Heart- normal rate, regular rhythm; no murmurs Abdomen- normal bowel sounds, nondistended, soft, no tenderness Extremities- no pretibial edema, no calf tenderness Neuro- alert, oriented x 3; no gross focal neurologic deficits Skin- warm & dry Results & Data Results & Data ([facility]) Vital Signs (Past 12 Hours) Vital Signs Temp Pulse Pulse Resp BP Pulse Ox O2 Del Method 02/07/23 15:53 36.7 C 75 19 124/82 98 Room Air 02/07/23 08:00 65 02/07/23 12:14 36.7 C 79 18 113/69 98 Room Air 02/07/23 06:33 36.6 C 76 17 119/79 94 Room Air all noted and reviewed including below
[2023-02-07] MEDS: FENOFIBRATE NANOCRYSTALLIZED 145 MG TABLET PO SCH (17:20)
[2023-02-08] MEDS: PANTOprazole 40 MG in DEXTROSE 5% 100 ML IV SCH ×2 (03:44→10:21)
[2023-02-08 04:57] LABS: Basophils # (auto) 0.02 K/uL (0-0.2); Basophils % (auto) 0.4 %; Eosinophils # (auto) 0.14 K/uL (0-0.50); Eosinophils % (auto) 2.8 %; Hematocrit (blood only) 26.2 % (37.0-47.0); Immature Granulocytes # (auto) 0.01 K/uL (0.01-0.20); Immature Granulocytes % (auto) 0.2 %; Lymphocytes # (auto) 0.77 K/uL (1.2-3.4); Lymphocytes % (auto) 15.3 %; Mean Corpuscular Hemoglobin 23.7 pg (25.0-34.0); Mean Corpuscular Hgb Conc 30.5 g/dL (32.0-36.0); Mean Corpuscular Volume 77.7 fL (80.0-100.0); Mean Platelet Volume 10.5 fL (9.4-12.4); Monocytes # (auto) 0.67 K/uL (0.11-0.59); Monocytes % (auto) 13.3 %; Neutrophils # (auto) 3.43 K/uL (1.40-6.50); Platelet Count 280 K/uL (130-400); RDW Coefficient of Variation 16.7 % (11.5-14.5); RDW Standard Deviation 47.2 fL (36.4-46.3); Red Blood Count 3.37 M/uL (4.20-5.40); White Blood Count 5.04 K/ul (4.8-10.8)
[2023-02-08 05:14] LABS: BUN Creatinine Ratio 11.3 (10-20); Calcium 8.4 mg/dl (8.5-10.1); Creatinine Clr Calc Pharmacy 39.5 ml/min; Est GFR (African American) 52.4 ml/min; Est GFR (Non-African American) 45.2 ml/min; Potassium 3.4 mmol/L (3.5-5.1)
[2023-02-08] MEDS ORDERED: LIDOCAINE 2% MPF LOCAL 5 ML VIAL INFIL ONE (08:20)
[2023-02-08] MEDS ORDERED: PROPOFOL IV EMULSION 10 MG/ML 20 ML VIAL IV ONE (08:20)
[2023-02-08] MEDS ORDERED: ONDANSETRON INJ 2 MG/ML 2 ML VIAL ONE (08:21)
--- NOTE | 2023-02-08 08:40 | Anesthesiology Consultation ---
Date of Service February 08, 2023 Assessment & Plan Chart Review Chart Review: Acceptable Risk for Surgery Consults Requested none History Surgery Operation Date: 02/05/23 17:45 Proposed Procedures p Esophagogastroduodenoscopy Lissette - Nerissa Mclaughlin, Operation Date: 02/08/23 16:00 Proposed Procedures p Esophagogastroduodenoscopy Dr Brown - Julia Brown, DO Height/Weight Height: 5 ft 3 in Weight: 79.1 kg Allergies Allergy/AdvReac Type Severity Reaction Status Date / Time house dust Allergy Intermediate SNEEZING, Verified 02/08/23 08:20 CONGESTION pollen extracts Allergy Intermediate SNEEZING, Verified 02/08/23 08:20 CONGESTION betamethasone AdvReac Severe ELEVATED Verified 02/08/23 08:20 BLOOD SUGAR Medications Home Medications Medication Instructions Recorded Confirmed Last Taken alendronate 70 mg tablet 70 mg PO WK 12/28/22 02/05/23 12/27/22 amlodipine 10 mg tablet 10 mg PO QAM 12/28/22 02/05/23 12/28/22 amoxicillin 500 mg tablet 2,000 mg PO DIRECTED PRN PRIOR 12/28/22 02/05/23 Unknown TO PROCEDURES cholecalciferol (vitamin D3) 125 125 mcg PO HS 12/28/22 02/05/23 12/27/22 mcg (5,000 unit) tablet (Vitamin D3) fenofibrate nanocrystallized 145 145 mg PO QDD 12/28/22 02/05/23 12/27/22 mg tablet fluticasone propionate 50 2 spray intranasal QA 12/28/22 02/05/23 12/28/22 mcg/actuation nasal spray,suspension lisinopril 40 mg tablet 40 mg PO QAM 12/28/22 02/05/23 12/28/22 potassium chloride 20 mEq 20 meq PO QDL 12/28/22 02/05/23 12/27/22 tablet,extended release apixaban 5 mg tablet (Eliquis) 5 mg PO BID 02/05/23 02/05/23 Unknown dicyclomine 10 mg capsule 10 mg PO QID PRN Abdominal Pain 02/05/23 02/05/23 Unknown furosemide 20 mg tablet 20 mg PO DAILY 02/05/23 02/05/23 Unknown metoprolol succinate 25 mg 37.5 mg PO BID 02/05/23 02/05/23 Unknown tablet,extended release 24 hr Active Medications Generic Name Dose Route Start Last Admin Trade Name Freq PRN Reason Stop Dose Admin Amlodipine Besylate 10 mg 02/06/23 09:00 02/07/23 09:10 Amlodipine Besylate 5 Mg Tab PO 03/08/23 08:59 10 mg QAM MARIAH Administration Fenofibrate 145 mg 02/05/23 16:30 02/07/23 17:20 Fenofibrate Nanocrystallized 145 Mg Tablet PO 03/07/23 16:29 145 mg QDD MARIAH Administration Furosemide 20 mg 02/06/23 09:00 02/07/23 09:10 Furosemide 20 Mg Tab PO 03/08/23 08:59 20 mg DAILY MARIAH Administration Pantoprazole Sodium 40 mg/ 100 mls @ 20 mls/hr 02/05/23 10:45 02/08/23 03:44 Dextrose IV 03/07/23 10:44 8 mg/hr Q5H MARIAH 20 mls/hr Administration 8 MG/HR Lisinopril 40 mg 02/06/23 09:00 02/07/23 09:10 Lisinopril 40 Mg Tab PO 03/08/23 08:59 40 mg QAM MARIAH Administration Metoprolol Succinate 37.5 mg 02/05/23 21:00 02/07/23 20:11 Metoprolol Succ 25mg Ext Rel Tab PO 03/07/23 20:59 37.5 mg BID MARIAH Administration Potassium Chloride 20 meq 02/06/23 11:30 02/07/23 12:55 Potassium Chloride Crtab 20 Meq Tabcr PO 03/08/23 11:29 20 meq QDL MARIAH Administration NPO Date Last Intake of Fluids: 02/07/23 Time Last Intake of Fluids: 22:00 Date Last Intake of Solids: 02/04/23 Time Last Intake of Solids: 18:00 Past Medical History Medical History Atrial fibrillation CKD (chronic kidney disease), stage III Diet-controlled type 2 diabetes mellitus GERD (gastroesophageal reflux disease) History of DVT (deep vein thrombosis) History of pulmonary embolism HLD (hyperlipidemia) HTN (hypertension) Osteoporosis Past Surgical History Surgical History History of partial colectomy History of total left knee replacement (TKR) Social History Smoking Status: Never smoker Hx Alcohol Use: No Hx Substance Use: No Physical Exam Vital Signs Last Vital Signs Temp 36.8 C 02/08/23 08:26 Pulse 99 H 02/08/23 08:26 Resp 16 02/08/23 08:26 BP 147/90 H 02/08/23 08:26 Pulse Ox 97 02/08/23 08:26 O2 Del Method Room Air 02/08/23 08:26 O2 Flow Rate 0 02/05/23 12:17 Testing Laboratory Results 02/08/23 04:32 02/08/23 04:32 PT 15.4 Seconds (9.0-12.0) H 02/05/23 09:32 INR 1.5 (0.9-1.1) H 02/05/23 09:32 Blood Type B Positive 02/05/23 09:32 Antibody Screen NEGATIVE 02/05/23 09:32
--- NOTE | 2023-02-08 08:48 | History & Physical Report ---
Date of Service February 08, 2023 Assessment & Plan (1) Melena: Plan: egd today (2) Anemia: Admission and Anticipated Discharge Date Admission Date: February 05, 2023 History of Present Illness Primary Care Provider: Arlet Hernandez DO Allergies Allergy/AdvReac Type Severity Reaction Status Date / Time house dust Allergy Intermediate SNEEZING, Verified 02/08/23 08:20 CONGESTION pollen extracts Allergy Intermediate SNEEZING, Verified 02/08/23 08:20 CONGESTION betamethasone AdvReac Severe ELEVATED Verified 02/08/23 08:20 BLOOD SUGAR Home Medications Medication Instructions Recorded Confirmed Type alendronate 70 mg tablet 70 mg PO WK 12/28/22 02/05/23 History amlodipine 10 mg tablet 10 mg PO QAM 12/28/22 02/05/23 History amoxicillin 500 mg tablet 2,000 mg PO DIRECTED PRN PRIOR 12/28/22 02/05/23 History TO PROCEDURES cholecalciferol (vitamin D3) 125 125 mcg PO HS 12/28/22 02/05/23 History mcg (5,000 unit) tablet (Vitamin D3) fenofibrate nanocrystallized 145 145 mg PO QDD 12/28/22 02/05/23 History mg tablet fluticasone propionate 50 2 spray intranasal QAM 12/28/22 02/05/23 History mcg/actuation nasal spray,suspension lisinopril 40 mg tablet 40 mg PO QAM 12/28/22 02/05/23 History potassium chloride 20 mEq 20 meq PO QDL 12/28/22 02/05/23 History tablet,extended release apixaban 5 mg tablet (Eliquis) 5 mg PO BID 02/05/23 02/05/23 History dicyclomine 10 mg capsule 10 mg PO QID PRN Abdominal Pain 02/05/23 02/05/23 History furosemide 20 mg tablet 20 mg PO DAILY 02/05/23 02/05/23 History metoprolol succinate 25 mg 37.5 mg PO BID 02/05/23 02/05/23 History tablet,extended release 24 hr Past Med/Surg History Medical History Atrial fibrillation CKD (chronic kidney disease), stage III Diet-controlled type 2 diabetes mellitus GERD (gastroesophageal reflux disease) History of DVT (deep vein thrombosis) History of pulmonary embolism HLD (hyperlipidemia) HTN (hypertension) Osteoporosis Surgical History History of partial colectomy History of total left knee replacement (TKR) Social History Smoking Status: Never smoker Hx Alcohol Use: No Hx Substance Use: No Preferred Language: Kittitian Communication Ability: Effective Database Administration Manager Required: No Beliefs That Will Affect Care: None Current Living Situation: Alone Other Information That Helps Us Care for You: No Feels Safe at Home: Yes Safety Concerns: Feels Safe At This Time Assistive Devices: Denture - Upper, Denture - Lower and Glasses Results & Data ([facility]) Vital Signs (Past 12 Hours) Vital Signs Temp Pulse Resp BP BP Pulse Ox O2 Del Method 02/08/23 08:26 36.8 C 99 H 16 147/90 H 97 Room Air 02/08/23 06:53 36.7 C 91 H 18 123/78 95 Room Air 02/08/23 04:48 36.7 C 93 H 18 132/82 96 Room Air 02/07/23 22:51 36.5 C 77 17 124/76 97 Room Air Code Status & VTE Plan VTE Prophylaxis Plan VTE Prophylaxis will be ordered: Yes
--- NOTE | 2023-02-08 09:08 | GI REPORT ---
Patient Name: Cris Kumar Procedure Date: 02/08/2023 8:55 AM Date of : 1945 Admit Type: Inpatient Age: 77 Gender: Female Attending MD: Julia Brown DO, Procedure: Upper GI endoscopy Providers: Julia Brown DO Referring MD: Arlet Hernandez Do Indications: Iron deficiency anemia, Melena Medicines: Propofol per Anesthesia Complications: No immediate complications. Estimated blood loss: None. Estimated Blood Loss: Estimated blood loss: none. Procedure: Pre-Anesthesia Assessment: - Prior to the procedure, a History and Physical was performed, and patient medications, allergies and sensitivities were reviewed. The patient's tolerance of previous anesthesia was reviewed. - The risks and benefits of the procedure and the sedation options and risks were discussed with the patient. All questions were answered and informed consent was obtained. - Patient identification and proposed procedure were verified prior to the procedure by the physician and the nurse. The procedure was verified in the pre-procedure area in the procedure room. - Mental Status Examination: alert and oriented. Airway Examination: normal oropharyngeal airway and neck mobility. Respiratory Examination: clear to auscultation. CV Examination: normal. Abdominal Examination: bowel sounds present, abdomen soft and non-tender, no masses or organomegaly noted. - ASA Grade Assessment: II - A patient with mild systemic disease. After obtaining informed consent, the endoscope was passed under direct vision. Throughout the procedure, the patient's blood pressure, pulse, and oxygen saturations were monitored continuously. The Scope was introduced through the mouth, and advanced to the third part of duodenum. The upper GI endoscopy was accomplished without difficulty. The patient tolerated the procedure well. Findings: Non-severe esophagitis with no bleeding was found at the gastroesophageal junction. A small hiatal hernia was present. A few diminutive erosions with no bleeding and no stigmata of recent bleeding were found in the gastric antrum. The examined duodenum was normal. Impression: - Mild esophagitis. - Small hiatal hernia. - Erosive gastropathy with no bleeding and no stigmata of recent bleeding. - Normal examined duodenum. - No specimens collected. Recommendation: - Follow an antireflux regimen. - Use a proton pump inhibitor PO BID. - Advance diet as tolerated. - Return patient to hospital [facility]. Julia T. Cullen Brown, 02/08/2023 9:07:20 AM This report has been signed electronically. Note Initiated On: 02/08/2023 8:55 AM Number of Addenda: 0 I attest to the content of the Intraoperative Record and orders documented therein, exceptions below {[id number]}
--- NOTE | 2023-02-08 09:09 | Communication Note ---
Date of Service: February 08, 2023 EGD done this AM. She has mild esophagitis and some superficial gastric erosions. No fresh or altered blood. No large ulcers. OK to advance diet (per primary service) and use oral BID PPI. PLease call with questions.
--- NOTE | 2023-02-08 09:37 | Anesthesiology Progress Note ---
Date of Service February 08, 2023 Anesthesia Post Procedure Vital Signs Vital Signs: Temp Pulse Pulse Resp BP BP Pulse Ox 02/08/23 09:23 82 20 117/65 100 02/08/23 09:08 98 H 16 106/57 L 100 02/08/23 08:26 36.8 C 99 H 16 147/90 H 97 02/08/23 06:53 36.7 C 91 H 18 123/78 95 02/08/23 04:48 36.7 C 93 H 18 132/82 96 02/07/23 22:51 36.5 C 77 17 124/76 97 02/07/23 19:01 36.7 C 90 18 130/81 98 02/07/23 14:00 71 02/07/23 15:53 36.7 C 75 19 124/82 98 02/07/23 12:14 36.7 C 79 18 113/69 98 O2 Del Method 02/08/23 09:23 Room Air 02/08/23 09:08 Room Air 02/08/23 08:26 Room Air 02/08/23 06:53 Room Air 02/08/23 04:48 Room Air 02/07/23 22:51 Room Air 02/07/23 19:01 Room Air 02/07/23 14:00 02/07/23 15:53 Room Air 02/07/23 12:14 Room Air Transfer of Care Handoff Completed per policy Notes Mental Status: alert / awake / arousable and participated in evaluation Patient Amnestic to Procedure: Yes Nausea / Vomiting: adequately controlled Pain: adequately controlled Airway Patency, RR, SpO2: stable & adequate BP & HR: stable & adequate Hydration State: stable & adequate Anesthetic Complications: no major complications apparent
[2023-02-08] MEDS: METOPROLOL SUCC 25MG EXT REL TAB PO SCH ×2 (10:05→21:09)
[2023-02-08] MEDS: amLODIPine BESYLATE 5 MG TAB PO SCH (10:05)
[2023-02-08] MEDS: FUROSEMIDE 20 MG TAB PO SCH (10:05)
[2023-02-08] MEDS: lisinopril 40 MG TAB PO SCH (10:05)
[2023-02-08] MEDS: POTASSIUM CHLORIDE CRTAB 20 MEQ TABCR PO SCH (11:57)
[2023-02-08] MEDS: APIXABAN 5 MG TABLET PO SCH ×2 (11:57→21:09)
--- NOTE | 2023-02-08 16:27 | Hospitalist Progress Note ---
Date of Service February 08, 2023 Assessment & Plan (1) Anemia: (2) Melena: Plan: Patient presenting by referral PCPs office for evaluation of anemia. Patient recently admitted for new onset atrial fibrillation and DVT/PE, started on Eliquis. Patient reports diarrhea and melena since returning home from the hospital. In the ED, Hgb 5.9 (10.2 on 12/31/22). Stool is heme positive. VSS. S/p Protonix bolus and started on drip in ED Transfused 2 units of packed RBC Hemoglobin is stable since transfusion. Endoscopy done on 02/08 shows mild esophagitis with small hiatal hernia. Erosive gastropathy with no evidence of bleeding. Discussed with GI; okay to resume anticoagulation. Protonix 40 mg twice daily started as well. (3) Lower extremity edema: Plan: Recent echo EF 55 to 60%, mild mitral and tricuspid regurgitation PCP started Lasix 20 mg daily on 02/04 --patient instructed to take for 3 days Noted patient is on amlodipine; likely due to amlodipine (4) Atrial fibrillation: Plan: Recent diagnosis of Metoprolol increased to 37.5 mg BID by PCP yesterday due to increased heart rate with activity -- anemia likely contributing to this. Will continue increased dose and monitor heart rate. Recent outpatient ZIO showed 100% A-fib burden Holding Eliquis due to GI bleeding --resume pending GI work-up/risk vs. benefit. May need to transition to Coumadin. (5) History of DVT (deep vein thrombosis): (6) History of pulmonary embolism: Plan: Diagnosed during last admission Restarted on anticoagulation since 02/08 (7) HTN (hypertension): Plan: BP controlled, continue amlodipine, lisinopril, metoprolol (8) Diet-controlled type 2 diabetes mellitus: Plan: Hgb A1c 5.9 12/2022 Monitor glucose, NovoLog per protocol ordered (9) CKD (chronic kidney disease), stage III: Plan: Baseline creatinine ~ 1.1 (10) Breast lesion: Plan: During recent mission, patient was noted to have left breast lesion on CT chest Has an upcoming appointment with [facility] DVT PROPHYLAXIS Eliquis Disposition Anticipate discharge to home when medically stable plan of care discussed with patient in detail and at length all questions answered she is understanding, agreeable, comfortable with the plan of care Admission and Anticipated Discharge Date Admission Date: February 05, 2023 Subjective Seen and examined at bedside. She is sitting up on the chair; not in distress. Underwent endoscopy without any issues. Review of Systems Review of Systems: All systems reviewed & are unremarkable except as noted in Subjective Physical Exam Physical Exam: General- oriented x 3, not in distress, speaks in sentences with no effort or accessory muscle use Eyes- anicteric Neck- no JVD Lungs- clear breath sounds bilaterally, no crackles or wheezing Heart- normal rate, regular rhythm; no murmurs Abdomen- normal bowel sounds, nondistended, soft, no tenderness Extremities- no pretibial edema, no calf tenderness Neuro- alert, oriented x 3; no gross focal neurologic deficits Skin- warm & dry Results & Data Results & Data ([facility]) Vital Signs (Past 12 Hours) Vital Signs Temp Pulse Pulse Resp BP BP Pulse Ox 02/08/23 16:04 36.6 C 71 20 134/84 96 02/08/23 15:29 84 02/08/23 12:35 36.5 C 84 16 117/75 97 02/08/23 10:03 36.9 C 72 18 129/78 99 02/08/23 09:39 86 20 140/65 100 02/08/23 09:23 82 20 117/65 100 02/08/23 09:08 98 H 16 106/57 L 100 02/08/23 08:26 36.8 C 99 H 16 147/90 H 97 02/08/23 06:53 36.7 C 91 H 18 123/78 95 02/08/23 04:48 36.7 C 93 H 18 132/82 96 O2 Del Method 02/08/23 16:04 Room Air 02/08/23 15:29 02/08/23 12:35 Room Air 02/08/23 10:03 Room Air 02/08/23 09:39 Room Air 02/08/23 09:23 Room Air 02/08/23 09:08 Room Air 02/08/23 08:26 Room Air 02/08/23 06:53 Room Air 02/08/23 04:48 Room Air Laboratory Results Laboratory Results WBC 5.04 K/ul (4.8-10.8) 02/08/23 04:32 RBC 3.37 M/uL (4.20-5.40) L 02/08/23 04:32 Hgb 8.0 g/dl (12.0-16.0) L 02/08/23 04:32 Hct 26.2 % (37.0-47.0) L 02/08/23 04:32 MCV 77.7 fL (80.0-100.0) L 02/08/23 04:32 MCH 23.7 pg (25.0-34.0) L 02/08/23 04:32 MCHC 30.5 g/dL (32.0-36.0) L 02/08/23 04:32 RDW Std Deviation 47.2 fL (36.4-46.3) H 02/08/23 04:32 RDW Coeff of [place] 16.7 % (11.5-14.5) H 02/08/23 04:32 Plt Count 280 K/uL (130-400) 02/08/23 04:32 MPV 10.5 fL (9.4-12.4) 02/08/23 04:32 Immature Gran % (Auto) 0.2 % 02/08/23 04:32 Neut % (Auto) 68.0 % 02/08/23 04:32 Lymph % (Auto) 15.3 % 02/08/23 04:32 Irion % (Auto) 13.3 % 02/08/23 04:32 Eos % (Auto) 2.8 % 02/08/23 04:32 Baso % (Auto) 0.4 % 02/08/23 04:32 Neut # (Auto) 3.43 K/uL (1.40-6.50) 02/08/23 04:32 Lymph # (Auto) 0.77 K/uL (1.2-3.4) L 02/08/23 04:32 Irion # (Auto) 0.67 K/uL (0.11-0.59) H 02/08/23 04:32 Eos # (Auto) 0.14 K/uL (0-0.50) 02/08/23 04:32 Baso # (Auto) 0.02 K/uL (0-0.2) 02/08/23 04:32 Immature Gran # (Auto) 0.01 K/uL (0.01-0.20) 02/08/23 04:32 Absolute Nucleated RBC 0.02 K/uL (0-0.12) 02/06/23 04:36 Nucleated RBC % (auto) 0.4 % 02/06/23 04:36 Polychromasia 1+ 02/05/23 09:32 PT 15.4 Seconds (9.0-12.0) H 02/05/23 09:32 INR 1.5 (0.9-1.1) H 02/05/23 09:32 Sodium 140 mmol/L (136-145) 02/08/23 04:32 Potassium 3.4 mmol/L (3.5-5.1) L 02/08/23 04:32 Chloride 108 mmol/L (98-107) H 02/08/23 04:32 Carbon Dioxide 27 mmol/L (21-32) 02/08/23 04:32 Anion Gap 5 (3-11) 02/08/23 04:32 BUN 13 mg/dl (6-23) 02/08/23 04:32 Creatinine 1.15 mg/dl (0.6-1.2) 02/08/23 04:32 Est Cr Clr Drug Dosing 39.5 ml/min 02/08/23 04:32 Est GFR ( Amer) 52.4 ml/min 02/08/23 04:32 Est GFR (Non-Af Amer) 45.2 ml/min 02/08/23 04:32 BUN/Creatinine Ratio 11.3 (10-20) 02/08/23 04:32 Glucose 96 mg/dl (70-99(Fasting)) 02/08/23 04:32 Calcium 8.4 mg/dl (8.5-10.1) L 02/08/23 04:32 Total Bilirubin 0.7 mg/dl (0.2-1.0) 02/05/23 09:32 AST 13 U/L (13-39) 02/05/23 09:32 ALT 9 U/L (7-52) 02/05/23 09:32 Alkaline Phosphatase 16 U/L (34-104) L 02/05/23 09:32 Troponin I High Sens 9.2 pg/ml (0-14) 02/05/23 09:32 Total Protein 6.6 gm/dl (6.0-8.3) 02/05/23 09:32 Albumin 3.8 gm/dl (3.4-5.0) 02/05/23 09:32 Globulin 2.8 gm/dl (2.5-4.0) 02/05/23 09:32 Albumin/Globulin Ratio 1.4 (0.9-2) 02/05/23 09:32 Lipase 39 U/L (11-82) 02/05/23 09:32 SARS-CoV-2, RNA, NAAT NEGATIVE (NEGATIVE) 02/05/23 10:22 Blood Type B Positive 02/05/23 09:32 Antibody Screen NEGATIVE 02/05/23 09:32 Crossmatch See Detail 02/05/23 09:32
[2023-02-08] MEDS: FENOFIBRATE NANOCRYSTALLIZED 145 MG TABLET PO SCH (16:42)
[2023-02-08] MEDS: PANTOprazole 40 MG TAB PO SCH (21:09)
[2023-02-09 06:28] LABS: Basophils # (auto) 0.02 K/uL (0-0.2); Basophils % (auto) 0.4 %; Eosinophils # (auto) 0.15 K/uL (0-0.50); Eosinophils % (auto) 3.1 %; Hematocrit (blood only) 26.9 % (37.0-47.0); Hemoglobin 8.2 g/dl (12.0-16.0); Immature Granulocytes # (auto) 0.02 K/uL (0.01-0.20); Immature Granulocytes % (auto) 0.4 %; Lymphocytes # (auto) 0.91 K/uL (1.2-3.4); Mean Corpuscular Hemoglobin 23.7 pg (25.0-34.0); Mean Corpuscular Hgb Conc 30.5 g/dL (32.0-36.0); Mean Corpuscular Volume 77.7 fL (80.0-100.0); Monocytes # (auto) 0.64 K/uL (0.11-0.59); Monocytes % (auto) 13.4 %; Neutrophils # (auto) 3.04 K/uL (1.40-6.50); Neutrophils % (auto) 63.7 %; Platelet Count 298 K/uL (130-400); RDW Coefficient of Variation 17.2 % (11.5-14.5); RDW Standard Deviation 48.1 fL (36.4-46.3); Red Blood Count 3.46 M/uL (4.20-5.40); White Blood Count 4.78 K/ul (4.8-10.8)
[2023-02-09] MEDS: METOPROLOL SUCC 25MG EXT REL TAB PO SCH (09:10)
[2023-02-09] MEDS: amLODIPine BESYLATE 5 MG TAB PO SCH (09:10)
[2023-02-09] MEDS: APIXABAN 5 MG TABLET PO SCH (09:10)
[2023-02-09] MEDS: lisinopril 40 MG TAB PO SCH (09:10)
[2023-02-09] MEDS: PANTOprazole 40 MG TAB PO SCH (09:10)
[2023-02-09] MEDS: FUROSEMIDE 20 MG TAB PO SCH (09:10)
[2023-02-09] MEDS: POTASSIUM CHLORIDE CRTAB 20 MEQ TABCR PO SCH (12:30)
--- NOTE | 2023-02-09 15:23 | Discharge Summary ---
Date of Service February 09, 2023 Admission HPI Per Admitting Provider 77-year-old female with PMH diet-controlled DM type II, CKD stage III, dyslipidemia, HTN, GERD, osteoporosis, and a recent diagnosis of new onset atrial fibrillation and DVT/PE on Eliquis, and other problems listed below who presents to the ED by referral of PCP for evaluation of anemia. History obtained from patient by Dr. Montez and my personal review of outpatient PCP and cardiology notes as well as notes of recent inpatient admission. Patient recently admitted to [facility] 12/28 through 12/31 for new onset atrial fibrillation and DVT/PE. Patient started on Eliquis and metoprolol. Had outpatient ZIO monitor completed that showed 100% A-fib burden. Patient seen by PCP yesterday for complaints of generalized weakness and exertional shortness of breath. Heart rate increased to 120s to 130s with activity. Metoprolol was increased to 37.5 mg twice daily. Patient was also noted to have increased lower extremity edema and Lasix 20 mg daily x 3 days was ordered. Labs were ordered and showed Hgb 6.0. Patient was referred to the ED for further evaluation. Patient reports having diarrhea since last hospitalization. PCP started dicyclomine. Stools also noted to be very dark/almost black. Patient denies abdominal pain, nausea, vomiting. Denies chest pain and palpitations. No lightheadedness, dizziness, diaphoresis, syncopal events. Denies fevers and chills. No urinary symptoms. In the ED, Hgb 5.9. Patient was typed and crossed for 2 units PRBC. She was given Protonix bolus and started on a drip. Admission Exam Per Admitting Provider General: Well nourished, well hydrated , average body habitus, no acute distress and not ill appearing Eyes: PERRL, +pallor, EOM intact bilaterally ENMT: External ear and nose normal, oropharynx normal Respiratory: Normal respiratory effort, no respiratory distress, lungs clear to auscultation, no crackles and no wheezes Cardiovascular: Irregularly irregular S1 S2 Gastrointestinal (Abdomen): Abdomen is not distended, soft, non-tender to palpation, no guarding, no palpable hepatosplenomegaly, normal bowel sounds Musculoskeletal: +bilateral pitting pedal edema Neurologic: Alert and oriented x 3, No focal weakness, sensation grossly intact Psychiatric: Euthymic affect Principal Diagnosis Upper GI bleed Atrial fibrillation History of DVT Discharge Exam General- oriented x 3, not in distress, speaks in sentences with no effort or accessory muscle use Eyes- anicteric Neck- no JVD Lungs- clear breath sounds bilaterally, no crackles or wheezing Heart- normal rate, regular rhythm; no murmurs Abdomen- normal bowel sounds, nondistended, soft, no tenderness Extremities- no pretibial edema, no calf tenderness Neuro- alert, oriented x 3; no gross focal neurologic deficits Skin- warm & dry Discharge Data Allergies Allergy/AdvReac Type Severity Reaction Status Date / Time house dust Allergy Intermediate SNEEZING, Verified 02/08/23 08:20 CONGESTION pollen extracts Allergy Intermediate SNEEZING, Verified 02/08/23 08:20 CONGESTION betamethasone AdvReac Severe ELEVATED Verified 02/08/23 08:20 BLOOD SUGAR Consultations 02/05/23 10:48 ED Decision to Admit Stat 02/05/23 13:20 Consult Gastroenterology Routine Procedures Performed Operation Date: 02/08/23 16:00 Actual Procedures p Esophagogastroduodenoscopy - Julia Brown, DO Hospital Course (1) Anemia: (2) Melena: (3) Atrial fibrillation: (4) History of DVT (deep vein thrombosis): (5) History of pulmonary embolism: Plan Patient presenting by referral PCPs office for evaluation of anemia. Patient recently admitted for new onset atrial fibrillation and DVT/PE, started on Eliquis. Patient reports diarrhea and melena since returning home from the hospital. In the ED, hemoglobin was found to be 5.9; down from 10.2 last month. Stool was found to be heme positive. She was hemodynamically stable. She was started on Protonix drip in the ED and admitted to telemetry floor. Patient was transfused 2 units of packed RBC. Her hemoglobin improved to 8. She underwent endoscopy on 02/08 which showed mild esophagitis with a small hiatal hernia; erosive gastropathy was also seen with no evidence of bleeding. She was placed on Protonix 40 mg twice daily as recommended by GI. Her Eliquis was also resumed after discussion with GI. Patient's hemoglobin remained stable after starting anticoagulation. She was discharged home with instruction to follow-up with her primary care doctor. She was also instructed to repeat CBC after 1 week. Total Time Total Time Spent Total Time Spent (In Minutes): 35 Total Time Includes: Examination of the Patient, Discharge Planning, Medication Reconciliation, Communication With Other Providers and Other Discharge Plan Discharge Items Patient Disposition: Home - Self-Care Reason For Visit: ANEMIA, GI BLEED Discharge Diagnosis: Upper GI bleed Activity: Resume your previous activity Non-emergency contact: Primary Care Provider Call non-emergency contact if: you have any medication questions and your symptoms worsen Follow-up/Referrals: Arlet Hernandez DO [Primary Care Provider] - (Date & Time 02/12/2023 2:00 PM Provider Arlet Hernandez DO [facility] [address], [place] Please call the office staff at [facility] [address] if you are unable to make this appointment. ) Diet: Regular Addtl Attending Provider Instructions: You were admitted to the hospital with melena. Your hemoglobin on admission was 5.9. You were transfused 2 units of blood. Your hemoglobin level has been stable at 8 since last few days. You had endoscopy done on February 08, 2023 which showed mild esophagitis with small hiatal hernia. Erosive gastropathy with no evidence of bleeding was also seen. Gastroenterology recommended that you are started on Protonix twice daily. A prescription has been sent to your pharmacy. Please continue to take all your other medication as prescribed before. Please watch out for signs of bleeding which include black/red stool, dizziness. Pending Studies at Discharge: No Stand-Alone Forms: [facility], Smoking Cessation Medications and DC Order Prescriptions: New pantoprazole 40 mg Tablet,Delayed Release (Dr/Ec) 40 mg PO BID Qty: 60 0RF Continued dicyclomine 10 mg capsule 10 mg PO QID PRN (Reason: Abdominal Pain) Eliquis 5 mg tablet 5 mg PO BID metoprolol succinate 25 mg tablet extended release 24 hr 37.5 mg PO BID alendronate 70 mg tablet 70 mg PO WK Rx Instructions: TAKES ON SUNDAYS amlodipine 10 mg tablet 10 mg PO QAM lisinopril 40 mg tablet 40 mg PO QAM fluticasone propionate 50 mcg/actuation spray,suspension 2 spray INTRANASAL QAM fenofibrate nanocrystallized 145 mg tablet 145 mg PO QDD cholecalciferol (vitamin D3) [Vitamin D3] 125 mcg (5,000 unit) Tablet 125 mcg PO HS Rx Instructions: PER [facility] SHOULD BE 2,000 UNITS. potassium chloride 20 mEq tablet extended release 20 meq PO QDL amoxicillin 500 mg tablet 2,000 mg PO DIRECTED PRN (Reason: PRIOR TO PROCEDURES) Rx Instructions: 4 tabs 1 hour prior to procedure Discontinued furosemide 20 mg tablet 20 mg PO DAILY Rx Instructions: started on 02/04 - instructed to take x 3 days Discharge Orders: Discharge Order (Routine); Ordered 02/09/23 Ordered By: Michel Crouch Admission Data Admit Date/Time: 02/05/23 11:16 Attending Provider: Michel Crouch Admit Provider: Miguelina Montez I. Primary Care Provider: Arlet Hernandez Other Providers: Miguelina Montez I. ; Nerissa Mclaughlin ; [facility] Other Interventions: Discharge Summary Assessment (RN) Last Done: 02/09/23 11:18
--- NOTE | 2023-02-11 07:55 | Coding Query ---
To promote full compliance with coding requirements relating to patient care, provider participation is requested in all cases of hide salter uncertainty. Please assist us with the question(s) below: Coding Question(s): The diagnosis below was documented in the ER, then subsequently fell off all further documentation. Please indicate if it is still a possible diagnosis or ruled out. Physician's Response(s): ACUTE KIDNEY INJURY, MILD ( ) Diagnosed and POA ( ) Diagnosed and not POA ( X ) Ruled out ( ) Other (please specify) MTDD
--- NOTE | 2023-02-12 07:13 | Coding Query ---
CODING QUERY To promote full compliance with coding requirements relating to patient care, provider participation is requested in all cases of technical analyst uncertainty. Please assist us with the question(s) below: Coding Question(s): Please specify below, in your clinical opinion, the diagnosis most responsible for occasioning the inpatient admission: ( ) Anemia ( X ) Upper GI Bleeding ( ) Other: Please Specify Physician's Response(s): Thank you Shauna Patel Principal Diagnosis: "that condition established after study, to be chiefly responsible for occasioning the admission of the patient to the hospital for care." Co-Existing Principal Diagnosis: "when two or more diagnoses equally meet the criteria for principal diagnosis as determined by the circumstances of admission, diagnostic work up, and/or therapy provided, and the Alphabetic Index, Tabular List, or another coding guideline does not provide sequencing direction, any one of the diagnoses may be sequenced first." "When the physician has documented what appears to be a current diagnosis in the body of the record, but has not included the diagnosis in the final diagnostic statement, the physician should be asked whether the diagnosis should be added." ([facility] 2 QTR90. p3-4) BETO
== END 2023-02-09 14:00 | disposition home or self-care (01) | DRG 377 ==
LOC: ED 08:55 → SUATTDRO 11:16 → 4W 11:16
DX: Z86.711 Personal history of pulmonary embolism; K25.4 Chronic or unspecified gastric ulcer with hemorrhage; K20.91 Esophagitis, unspecified with bleeding; Z91.048 Other nonmedicinal substance allergy status; Z79.51 Long term (current) use of inhaled steroids; Z88.8 Allergy status to other drugs, medicaments and biological substances; K44.9 Diaphragmatic hernia without obstruction or gangrene; Z79.899 Other long term (current) drug therapy; R60.0 Localized edema; Z86.718 Personal history of other venous thrombosis and embolism; E78.5 Hyperlipidemia, unspecified; Z79.01 Long term (current) use of anticoagulants; N64.89 Other specified disorders of breast; E11.22 Type 2 diabetes mellitus with diabetic chronic kidney disease; N18.30 Chronic kidney disease, stage 3 unspecified; Z79.82 Long term (current) use of aspirin; I12.9 Hypertensive chronic kidney disease with stage 1 through stage 4 chronic kidney disease, or unspecified chronic kidney disease; D62 Acute posthemorrhagic anemia; M81.0 Age-related osteoporosis without current pathological fracture; I48.91 Unspecified atrial fibrillation

== ENCOUNTER 2023-04-19 11:38 | Inpatient (IN) ==
--- NOTE | 2023-04-19 12:31 | Emergency Department Note ---
Impression & Plan Fluid overload, Chronic a-fib, BLACKMAN (dyspnea on exertion) ED Provider Note Provider: Willam Aiken MD DATE OF SERVICE: 04/19/2023 CHIEF COMPLAINT: Weak/fatigued HISTORY OF PRESENT ILLNESS: Patient is a 78-year-old female history of hypertension, PE, A-fib, CKD, and anemia presenting here today referred from 's office reportedly with fatigue and weakness. Complaining of some shortness of breath with exertion and epigastric discomfort. Patient evidently had 2 admissions this past late winter and spring. Diagnosed with new onset atrial fibrillation as well as having some low hemoglobin levels. Did have blood transfusion previously. Went to the office today is over the last several days has been experiencing some dyspnea on exertion. Had trialed a couple short courses of some Lasix for some leg swelling but this has recurred and now has bilateral leg swelling. Denies significant chest pain but reports a little bit of epigastric discomfort earlier. Denies significant palpitations to her knowledge. Went to the doctors today at the base of blood work with and was concerned about her iron levels. Referred here with evidently some tachycardia into the 120s with ambulation but a normal pulse ox. Patient denies significant fever. Denies feeling faint but states when she walks or talks a lot she does feels more short of breath and sometimes feels that she needs to sit down with this. PAST MEDICAL HISTORY: As noted above MEDICATIONS: Reviewed home medications SOCIAL HISTORY: Non-smoker PHYSICAL EXAM: GENERAL: alert and oriented in no acute distress on stretcher Head: normocephalic and atraumatic EYES: No injection, discharge or icterus. NECK: Trachea midline. ENT: Mucous membranes pink and moist. LUNGS: Airway patent. No retractions. Breath sounds with diminished bases. HEART: Irregularly irregular rate and rhythm. No chest wall tenderness ABDOMEN: Soft and non-tender, without guarding or rebound. SKIN: Acyanotic, warm, dry, without rashes EXTREMITIES: Without deformity with 2+ edema of the lower extremities bilaterally. NEUROLOGICAL: No focal deficits. No aphasia. No facial droop or slurred speech. Ambulatory. EK bpm atrial fibrillation. No acute ST segment elevation or depression with a QTc of 380. CONTINUOUS CARDIAC MONITORING: was ordered and showed a heart rate of 80s-100s bpm in atrial fibrillation Patient's laboratory studies and imaging reviewed. Differential includes Reactive airway disease, pneumonia, pneumothorax, COPD, CHF, infections, cardiac ischemia, pulmonary embolism, musculoskeletal, gastrointestinal, as well as other pathologies. IMPRESSION/MEDICAL DECISION MAKING: Blood work here with mild anemia but improved from previous at 10.9 today. No elevated white blood cell count which is reassuring and doubt severe infection. No significant electrolyte abnormality or signs of acute hepatitis. Normal troponin. No evidence of pancreatitis based on labs. Not having significant abdominal discomfort currently. Does have some leg swelling. Question some component of fluid overload. Renal function at baseline today. Question some component of fluid overload and not tolerating her rate controlled A-fib causing her symptoms. Chest x-ray does show a little bit of pulmonary vascular congestion with trace effusions but no evidence of clear pulmonary edema per radiology report. Anticoagulated Eliquis and states compliance with doubt acute new PE. BNP elevation again seems consistent with fluid overload. Did review the epic office note from today's encounter at her doctors. We will give a dose of Lasix here to see if this helps with the fluid overload component. Discussed with her and son at bedside. Given her dyspnea on exertion and exertional induced tachycardia and recurrent episodes of this with only mild improvement with diuretics in the past she was to stay for observation. Hospitalist contacted. DIAGNOSIS: Fluid overload, atrial fibrillation DISPOSITION: Hospitalist will evaluate Patient was agreeable with this plan. Past Med/Surg History Medical History Atrial fibrillation CKD (chronic kidney disease), stage III Diet-controlled type 2 diabetes mellitus GERD (gastroesophageal reflux disease) History of DVT (deep vein thrombosis) History of pulmonary embolism HLD (hyperlipidemia) HTN (hypertension) Lower extremity edema Osteoporosis Upper GI bleed Surgical History History of partial colectomy History of total left knee replacement (TKR) Social History Smoking Status: Never smoker Hx Alcohol Use: No Hx Substance Use: No Preferred Language: Mongolian Communication Ability: Effective Irrigation Installation Specialist Required: No Beliefs That Will Affect Care: None Current Living Situation: Alone Feels Safe at Home: Yes Assistive Devices: Denture - Upper, Denture - Lower and Glasses Allergies Allergies Allergy/AdvReac Type Severity Reaction Status Date / Time house dust Allergy Intermediate SNEEZING, Verified 04/19/23 14:48 CONGESTION pollen extracts Allergy Intermediate SNEEZING, Verified 04/19/23 14:48 CONGESTION betamethasone AdvReac Severe ELEVATED Verified 04/19/23 14:48 BLOOD SUGAR Home Meds Home Medications Medication Instructions Recorded Confirmed alendronate 70 mg tablet 70 mg PO WK 12/28/22 04/19/23 amlodipine 10 mg tablet 10 mg PO QAM 12/28/22 04/19/23 amoxicillin 500 mg tablet 2,000 mg PO DIRECTED PRN PRIOR 12/28/22 04/19/23 TO PROCEDURES cholecalciferol (vitamin D3) 125 125 mcg PO HS 12/28/22 04/19/23 mcg (5,000 unit) tablet (Vitamin D3) fenofibrate nanocrystallized 145 145 mg PO QDD 12/28/22 04/19/23 mg tablet fluticasone propionate 50 2 spray intranasal QAM PRN Allergy 12/28/22 04/19/23 mcg/actuation nasal Symptoms spray,suspension lisinopril 40 mg tablet 40 mg PO QAM 12/28/22 04/19/23 potassium chloride 20 mEq 20 meq PO QDL 12/28/22 04/19/23 tablet,extended release apixaban 5 mg tablet (Eliquis) 5 mg PO BID 02/05/23 04/19/23 metoprolol succinate 25 mg 37.5 mg PO BID 02/05/23 04/19/23 tablet,extended release 24 hr ferrous sulfate 325 mg (65 mg 325 mg PO BID 04/19/23 04/19/23 iron) tablet Previous Rx's Medication Instructions Recorded pantoprazole 40 mg tablet,delayed 40 mg PO BID #60 tabs 02/09/23 release Results & Data (ED) Vital Signs Vital Signs - 24 hr 04/19/23 11:47 04/19/23 12:34 04/19/23 13:08 Temperature 36.6 C Temperature Source Temporal Artery Scan Pulse Rate 81 89 Pulse Rate [Apical] 89 Pulse Rhythm [Apical] Regular Pulse Strength [Apical] Normal Respiratory Rate 20 19 Respiratory Effort / Characteristics Non-Labored Non-Labored Spontaneous Respiratory Depth Normal Normal Respiratory Pattern Regular Blood Pressure 144/81 H Blood Pressure [Right Arm] 139/96 Blood Pressure Mean 102 Blood Pressure Mean [Right Arm] 110 Blood Pressure Position [Right Arm] Semi-fowlers Pulse Oximetry 97 97 Oxygen Delivery Method Room Air Room Air Sepsis Recent Fever Within 48 Hours No Sepsis New/Unexplained Change in Mental Status N/A Sepsis Action Taken by Nursing No Action Required 04/19/23 14:26 04/19/23 17:02 Temperature Temperature Source Pulse Rate Pulse Rate [Apical] 98 H 87 Pulse Rhythm [Apical] Regular Pulse Strength [Apical] Normal Respiratory Rate 22 23 Respiratory Effort / Characteristics Non-Labored Spontaneous Non-Labored Spontaneous Respiratory Depth Normal Normal Respiratory Pattern Regular Regular Blood Pressure Blood Pressure [Right Arm] 166/104 H 141/81 H Blood Pressure Mean Blood Pressure Mean [Right Arm] 124 101 Blood Pressure Position [Right Arm] Semi-fowlers Semi-fowlers Pulse Oximetry 97 97 Oxygen Delivery Method Room Air Sepsis Recent Fever Within 48 Hours Sepsis New/Unexplained Change in Mental Status Sepsis Action Taken by Nursing Laboratory Data 04/19/23 12:20 04/19/23 12:20 Lab Results 04/19/23 04/19/23 04/19/23 Range/Units 12:20 12:20 12:56 WBC 5.21 (4.8-10.8) K/ul RBC 3.90 L (4.20-5.40) M/uL Hgb 10.9 L (12.0-16.0) g/dl Hct 35.0 L (37.0-47.0) % MCV 89.7 (80.0-100.0) fL MCH 27.9 (25.0-34.0) pg MCHC 31.1 L (32.0-36.0) g/dL RDW Std Deviation 64.0 H (36.4-46.3) fL RDW Coeff of [place] 19.5 H (11.5-14.5) % Plt Count 276 (130-400) K/uL MPV 10.5 (9.4-12.4) fL Immature Gran % (Auto) 0.2 % Neut % (Auto) 72.6 % Lymph % (Auto) 13.4 % [place] % (Auto) 11.5 % Eos % (Auto) 1.7 % Baso % (Auto) 0.6 % Neut # (Auto) 3.78 (1.40-6.50) K/uL Lymph # (Auto) 0.70 L (1.2-3.4) K/uL [place] # (Auto) 0.60 H (0.11-0.59) K/uL Eos # (Auto) 0.09 (0-0.50) K/uL Baso # (Auto) 0.03 (0-0.2) K/uL Immature Gran # (Auto) 0.01 (0.01-0.20) K/uL Sodium 140 (136-145) mmol/L Potassium 3.9 (3.5-5.1) mmol/L Chloride 107 (98-107) mmol/L Carbon Dioxide 27 (21-32) mmol/L Anion Gap 6 (3-11) BUN 21 (6-23) mg/dl Creatinine 1.21 H (0.6-1.2) mg/dl Est Cr Clr Drug Dosing 36.9 ml/min Est GFR ( Amer) 48.9 ml/min Est GFR (Non-Af Amer) 42.2 ml/min BUN/Creatinine Ratio 17.4 (10-20) Glucose 115 H (70-99(Fasting)) mg/dl Calcium 9.4 (8.6-10.3) mg/dl Magnesium 1.8 (1.7-2.4) mg/dl Iron 68 (35-150) mcg/dl TIBC 501 H (250-450) mcg/dl Unsaturated IBC 433 H (155-355) mcg/dl Transferrin % Sat 14 L (15-50) % Total Bilirubin 0.6 (0.2-1.0) mg/dl AST 17 (13-39) U/L ALT 8 (7-52) U/L Alkaline Phosphatase 23 L (34-104) U/L Troponin I High Sens 8.5 (0-14) pg/ml B-Natriuretic Peptide (0-100) pg/ml Total Protein 7.4 (6.0-8.3) gm/dl Albumin 4.1 (3.4-5.0) gm/dl Globulin 3.3 (2.5-4.0) gm/dl Albumin/Globulin Ratio 1.2 (0.9-2) Lipase 54 (11-82) U/L TSH 3.550 (0.300-4.500) uIu/ml Urine Color Urine Appearance (Clear) Urine pH (4.5-7.5) Ur Specific [place] (1.000-1.030) Urine Protein (Negative) Urine Glucose (UA) (Negative) Urine Ketones (Negative) Urine Blood (Negative) Urine Nitrite (Negative) Urine Bilirubin (Negative) Urine Urobilinogen (Negative) Ur Leukocyte Esterase (Negative) Urine WBC (Auto) (0-5) /hpf Urine RBC (Auto) (0-4) /hpf U Hyaline Cast (Auto) (0-5) /lpf U Epithel Cells (Auto) (0-5) /lpf Urine Bacteria (Auto) (Negative) SARS-CoV-2, RNA, NAAT (NEGATIVE) 04/19/23 04/19/23 04/19/23 Range/Units 12:56 13:38 14:43 WBC (4.8-10.8) K/ul RBC (4.20-5.40) M/uL Hgb (12.0-16.0) g/dl Hct (37.0-47.0) % MCV (80.0-100.0) fL MCH (25.0-34.0) pg MCHC (32.0-36.0) g/dL RDW Std Deviation (36.4-46.3) fL RDW Coeff of [place] (11.5-14.5) % Plt Count (130-400) K/uL MPV (9.4-12.4) fL Immature Gran % (Auto) % Neut % (Auto) % Lymph % (Auto) % [place] % (Auto) % Eos % (Auto) % Baso % (Auto) % Neut # (Auto) (1.40-6.50) K/uL Lymph # (Auto) (1.2-3.4) K/uL [place] # (Auto) (0.11-0.59) K/uL Eos # (Auto) (0-0.50) K/uL Baso # (Auto) (0-0.2) K/uL Immature Gran # (Auto) (0.01-0.20) K/uL Sodium (136-145) mmol/L Potassium (3.5-5.1) mmol/L Chloride (98-107) mmol/L Carbon Dioxide (21-32) mmol/L Anion Gap (3-11) BUN (6-23) mg/dl Creatinine (0.6-1.2) mg/dl Est Cr Clr Drug Dosing ml/min Est GFR ( Amer) ml/min Est GFR (Non-Af Amer) ml/min BUN/Creatinine Ratio (10-20) Glucose (70-99(Fasting)) mg/dl Calcium (8.6-10.3) mg/dl Magnesium (1.7-2.4) mg/dl Iron (35-150) mcg/dl TIBC (250-450) mcg/dl Unsaturated IBC (155-355) mcg/dl Transferrin % Sat (15-50) % Total Bilirubin (0.2-1.0) mg/dl AST (13-39) U/L ALT (7-52) U/L Alkaline Phosphatase (34-104) U/L Troponin I High Sens (0-14) pg/ml B-Natriuretic Peptide 566 H (0-100) pg/ml Total Protein (6.0-8.3) gm/dl Albumin (3.4-5.0) gm/dl Globulin (2.5-4.0) gm/dl Albumin/Globulin Ratio (0.9-2) Lipase (11-82) U/L TSH (0.300-4.500) uIu/ml Urine Color Yellow Urine Appearance Clear (Clear) Urine pH 7.0 (4.5-7.5) Ur Specific [place] 1.010 (1.000-1.030) Urine Protein Negative (Negative) Urine Glucose (UA) Negative (Negative) Urine Ketones Negative (Negative) Urine Blood Negative (Negative) Urine Nitrite Negative (Negative) Urine Bilirubin Negative (Negative) Urine Urobilinogen Negative (Negative) Ur Leukocyte Esterase 1+ H (Negative) Urine WBC (Auto) 5-10 H (0-5) /hpf Urine RBC (Auto) 0-4 (0-4) /hpf U Hyaline Cast (Auto) 0 (0-5) /lpf U Epithel Cells (Auto) 10-20 H (0-5) /lpf Urine Bacteria (Auto) Negative (Negative) SARS-CoV-2, RNA, NAAT NEGATIVE (NEGATIVE) Administered Medications Discontinued Medications Furosemide (Furosemide 40 Mg/4 Ml Vial) 40 mg IV ONE ONE Stop: 04/19/23 14:21 Last Admin: 04/19/23 14:27 Dose: 40 mg Documented By: AB Imaging Data Radiologist's Impression: Chest X-Ray 04/19/23 12:43 XR chest 1V portable CLINICAL HISTORY: Dyspnea on exertion, leg swelling COMPARISON STUDY: Chest radiograph and chest CT December 28, 2022. FINDINGS: There is no pneumothorax. There is slight blunting of both costophrenic angles. Cardiomegaly is noted. 1.9 cm subtle density projects of the right lower lung. In addition, there is possible retrocardiac opacity. There is pulmonary vascular congestion without overt pulmonary edema. IMPRESSION: 1. Cardiomegaly. Pulmonary vascular congestion without overt pulmonary edema. 2. Trace bilateral pleural effusions. 3. Lower lung opacities, as described above. These could be artifactual or atelectatic however small foci of pneumonia could appear similar. Radiographic follow-up is recommended to ensure resolution. ACT 112: Negative or not required by law. Electronically signed by: Jon Mcdaniel M.D. 04/19/2023 1:09 PM Discharge Plan Visit Data Chief Complaint: Referred by Doctor Stated Complaint: REF BY , HEART PROBLEMS ED Provider: Willam Aiken Discharge Problem: Fluid overload, Chronic a-fib, BLACKMAN (dyspnea on exertion) Patient Disposition: Being Evaluated by Hospitalist Forms Stand Alone Forms: My [facility] Prescriptions Prescriptions: No Action Eliquis 5 mg tablet 5 mg PO BID metoprolol succinate 25 mg tablet extended release 24 hr 37.5 mg PO BID pantoprazole 40 mg Tablet,Delayed Release (Dr/Ec) 40 mg PO BID Qty: 60 0RF alendronate 70 mg tablet 70 mg PO WK Rx Instructions: TAKES ON SUNDAYS amlodipine 10 mg tablet 10 mg PO QAM lisinopril 40 mg tablet 40 mg PO QAM fluticasone propionate 50 mcg/actuation spray,suspension 2 spray INTRANASAL QAM PRN (Reason: Allergy Symptoms) fenofibrate nanocrystallized 145 mg tablet 145 mg PO QDD cholecalciferol (vitamin D3) [Vitamin D3] 125 mcg (5,000 unit) Tablet 125 mcg PO HS Rx Instructions: PER [facility] SHOULD BE 2,000 UNITS. potassium chloride 20 mEq tablet extended release 20 meq PO QDL amoxicillin 500 mg tablet 2,000 mg PO DIRECTED PRN (Reason: PRIOR TO PROCEDURES) Rx Instructions: 4 tabs 1 hour prior to procedure ferrous sulfate 325 mg (65 mg iron) tablet 325 mg PO BID Referrals Referrals: Holencik,Arlet, DO [Primary Care Provider] - Fluid overload Qualifiers: Hypervolemia type: unspecified Qualified Code(s): E87.70 - Fluid overload, unspecified
[2023-04-19 12:47] LABS: Basophils # (auto) 0.03 K/uL (0-0.2); Basophils % (auto) 0.6 %; Eosinophils # (auto) 0.09 K/uL (0-0.50); Eosinophils % (auto) 1.7 %; Hemoglobin 10.9 g/dl (12.0-16.0); Immature Granulocytes # (auto) 0.01 K/uL (0.01-0.20); Immature Granulocytes % (auto) 0.2 %; Lymphocytes % (auto) 13.4 %; Mean Corpuscular Hemoglobin 27.9 pg (25.0-34.0); Mean Corpuscular Hgb Conc 31.1 g/dL (32.0-36.0); Mean Corpuscular Volume 89.7 fL (80.0-100.0); Mean Platelet Volume 10.5 fL (9.4-12.4); Monocytes % (auto) 11.5 %; Neutrophils # (auto) 3.78 K/uL (1.40-6.50); Neutrophils % (auto) 72.6 %; Platelet Count 276 K/uL (130-400); RDW Coefficient of Variation 19.5 % (11.5-14.5); White Blood Count 5.21 K/ul (4.8-10.8)
[2023-04-19 13:05] LABS: Albumin Globulin Ratio 1.2 (0.9-2); Albumin Level 4.1 gm/dl (3.4-5.0); BUN Creatinine Ratio 17.4 (10-20); Bilirubin,Total 0.6 mg/dl (0.2-1.0); Calcium 9.4 mg/dl (8.6-10.3); Creatinine Clr Calc Pharmacy 36.9 ml/min; Est GFR (African American) 48.9 ml/min; Est GFR (Non-African American) 42.2 ml/min; Globulin 3.3 gm/dl (2.5-4.0); Magnesium 1.8 mg/dl (1.7-2.4); Potassium 3.9 mmol/L (3.5-5.1); Total Protein 7.4 gm/dl (6.0-8.3)
[2023-04-19 13:10] LABS: Troponin I High Sensitivity 8.5 pg/ml (0-14)
--- NOTE | 2023-04-19 13:10 | XRay Report ---
XR chest 1V portable CLINICAL HISTORY: Dyspnea on exertion, leg swelling COMPARISON STUDY: Chest radiograph and chest CT December 28, 2022. FINDINGS: There is no pneumothorax. There is slight blunting of both costophrenic angles. Cardiomegal y is noted. 1.9 cm subtle density projects of the right lower lung. In addition, there is possible re trocardiac opacity. There is pulmonary vascular congestion without overt pulmonary edema. IMPRESSION: 1. Cardiomegaly. Pulmonary vascular congestion without overt pulmonary edema. 2. Trace bilateral pleural effusions. 3. Lower lung opacities, as described above. These could be artifactual or atelectatic however small foci of pneumonia could appear similar. Radiographic follow-up is recommended to ensure resolution. ACT 112: Negative or not required by law. Electronically signed by: Jon Mcdaniel M.D. 04/19/2023 1:09 PM
--- NOTE | 2023-04-19 13:53 | Electrocardiogram Report ---
Test Reason : Blood Pressure : / mmHG Vent. Rate : 098 BPM Atrial Rate : 000 BPM P-R Int : 000 ms QRS Dur : 074 ms QT Int : 318 ms P-R-T Axes : 000 029 099 degrees QTc Int : 405 ms Atrial fibrillation Low voltage QRS Possible Anterolateral infarct (cited on or before 05-FEB-2023) Abnormal ECG When compared with ECG of 05-FEB-2023 09:18, Questionable change in initial forces of Anterolateral leads Nonspecific T wave abnormality has replaced inverted T waves in Lateral leads Confirmed by Dashawn Infante ([id number]) on 04/19/2023 1:53:21 PM Referred By: REFERRED SELF Confirmed By:Dashawn Infante
[2023-04-19 14:08] LABS: Appearance Urine Clear (Clear); Bacteria Urine Automated Negative (Negative); Bilirubin Urine Negative (Negative); Blood Urine Negative (Negative); Cast Urine Automated 0 /lpf (0-5); Color Urine Yellow; Glucose Urine UA Negative (Negative); Ketones Urine Negative (Negative); Leukocyte Esterase Urine 1+ (Negative); Nitrite Urine Negative (Negative); Protein Urine Negative (Negative); RBC Urine Automated 0-4 /hpf (0-4); Urobilinogen Urine Negative (Negative)
[2023-04-19] MEDS ORDERED: FUROSEMIDE 40 MG/4 ML VIAL IV ONE (14:20)
--- NOTE | 2023-04-19 15:40 | History & Physical Report ---
Date of Service April 19, 2023 Assessment & Plan (1) Acute CHF: Plan: Admit to telemetry Patient presenting by referral of PCPs office for evaluation of lower extremity edema and shortness of breath. Diagnosed with atrial fibrillation in November 2022, echocardiogram at that time showed EF of 55 to 60%, mild mitral regurgitation, mild tricuspid regurgitation, mild pulmonary hypertension. Treated with short courses of Lasix by PCP in January and February proBNP 566, CXR shows pulmonary vascular congestion and trace bilateral pleural effusions S/p Lasix 40 mg IV in the ED, will give Lasix 40 mg IV daily from tomorrow morning Update echo Cardiology consult, case discussed with Dr. Huang (2) Atrial fibrillation: Plan: EKG demonstrates atrial fibrillation rate 98 On metoprolol for rate control, anticoagulated on Eliquis (3) History of DVT (deep vein thrombosis): (4) History of pulmonary embolism: Plan: On Eliquis (5) HTN (hypertension): Plan: Continue metoprolol, lisinopril, amlodipine. Consider alternative to amlodipine given lower extremity edema. (6) Diet-controlled type 2 diabetes mellitus: Plan: Hgb A1c 5.9 12/2022 Glucose 115 on today's labs, continue to monitor and add NovoLog per protocol if needed (7) CKD (chronic kidney disease), stage III: Plan: Baseline creatinine ~ 1.1 Creatinine 1.2 today Continue to monitor with diuresis (8) Anemia: Plan: Admitted 01/2023 for anemia due to upper GI bleeding Hgb stable today at 10.9 Continue iron replacement DVT PROPHYLAXIS On Eliquis Patient seen in collaboration with Dr. Matta. I spent a total of 75 minutes coordinating, documenting, and providing care for this patient excluding time spent in the performance of separately billed services. This included personally reviewing all current laboratories and imaging studies, medication reconciliation, outpatient chart review, and discussion with specialists. History of Present Illness Chief Complaint: Leg swelling, shortness of breath Primary Care Provider: Arlet Hernandez DO 78-year-old female with PMH diet-controlled DM type II, CKD stage III, dyslipidemia, HTN, GERD, osteoporosis, atrial fibrillation and DVT/PE on Eliquis, and other problems listed below who presents to the ED by referral of PCP for evaluation of lower extremity edema and shortness of breath. History obtained from the patient and review of outpatient PCP records. Patient recently admitted to [facility] 02/05 through 02/09 for anemia secondary to upper GI bleeding due to esophagitis. Patient's Eliquis resumed and started on PPI twice daily. Since being discharged home, patient reports she has been having lower extremity edema. She was placed on 2 short courses of Lasix by PCP in January and February. Over the weekend, patient notes that she became fatigued more easily. She reports shortness of breath with minimal exertion, lower extremity edema, and orthopnea. She was seen at PCPs office today and referred to the ED for further evaluation. Also while at PCPs office, patient's heart rate increased significantly with minimal activity. She denies chest pain and palpitations. No lightheadedness, dizziness, diaphoresis, syncopal events. She denies abdominal pain, nausea, vomiting, diarrhea. No other recent illnesses, fevers, chills. She denies urinary symptoms. In the ED, patient is hemodynamically stable and saturating well on room air. CXR shows pulmonary vascular congestion and trace bilateral pleural effusions. proBNP 566. EKG shows atrial fibrillation rate 98. Patient was given Lasix 40 mg IV. Allergies Allergy/AdvReac Type Severity Reaction Status Date / Time house dust Allergy Intermediate SNEEZING, Verified 04/19/23 14:48 CONGESTION pollen extracts Allergy Intermediate SNEEZING, Verified 04/19/23 14:48 CONGESTION betamethasone AdvReac Severe ELEVATED Verified 04/19/23 14:48 BLOOD SUGAR Home Medications Medication Instructions Recorded Confirmed Type alendronate 70 mg tablet 70 mg PO WK 12/28/22 04/19/23 History amlodipine 10 mg tablet 10 mg PO QAM 12/28/22 04/19/23 History amoxicillin 500 mg tablet 2,000 mg PO DIRECTED PRN PRIOR 12/28/22 04/19/23 History TO PROCEDURES cholecalciferol (vitamin D3) 125 125 mcg PO HS 12/28/22 04/19/23 History mcg (5,000 unit) tablet (Vitamin D3) fenofibrate nanocrystallized 145 145 mg PO QDD 12/28/22 04/19/23 History mg tablet fluticasone propionate 50 2 spray intranasal QAM PRN Allergy 12/28/22 04/19/23 History mcg/actuation nasal Symptoms spray,suspension lisinopril 40 mg tablet 40 mg PO QAM 12/28/22 04/19/23 History potassium chloride 20 mEq 20 meq PO QDL 12/28/22 04/19/23 History tablet,extended release apixaban 5 mg tablet (Eliquis) 5 mg PO BID 02/05/23 04/19/23 History metoprolol succinate 25 mg 37.5 mg PO BID 02/05/23 04/19/23 History tablet,extended release 24 hr pantoprazole 40 mg tablet,delayed 40 mg PO BID #60 tabs 02/09/23 04/19/23 Rx release ferrous sulfate 325 mg (65 mg 325 mg PO BID 04/19/23 04/19/23 History iron) tablet Past Med/Surg History Medical History Atrial fibrillation CKD (chronic kidney disease), stage III Diet-controlled type 2 diabetes mellitus GERD (gastroesophageal reflux disease) History of DVT (deep vein thrombosis) History of pulmonary embolism HLD (hyperlipidemia) HTN (hypertension) Lower extremity edema Osteoporosis Upper GI bleed Surgical History History of partial colectomy History of total left knee replacement (TKR) Social History Smoking Status: Never smoker Hx Alcohol Use: No Hx Substance Use: No Preferred Language: Azeri Communication Ability: Effective Maintenance Dispatcher Required: No Beliefs That Will Affect Care: None Current Living Situation: Alone Other Information That Helps Us Care for You: No Feels Safe at Home: Yes Safety Concerns: Feels Safe At This Time Assistive Devices: Denture - Upper, Denture - Lower and Glasses Review of Systems Review of Systems: ROS per HPI, all other systems reviewed and negative Physical Exam Constitutional: WD/WN, vitals as above no acute distress Eyes: PERRL, conjunctivae normal, anicteric sclerae ENMT: external ear and nose normal, oropharynx normal Respiratory: normal respiratory effort, lungs clear to auscultation Cardiovascular: Rate/Rhythm: regular rate and + irregularly irregular Vessels: normal peripheral pulses Extremities: + edema (+2 pitting edema BLE) Gastrointestinal (Abdomen): normal bowel sounds, soft, nontender, no hepatosplenomegaly Musculoskeletal: no cyanosis or clubbing, extremities motor strength 5/5 Skin: no rashes, warm and dry Neurologic: PERRL, EOMI, accommodation nl, no face palsy, no dysarthria Psychiatric: A+Ox3, euthymic affect Results & Data Results & Data Vital Signs (Past 12 Hours) Vital Signs Temp Pulse Pulse Resp BP BP Pulse Ox 04/19/23 14:26 98 H 22 166/104 H 97 04/19/23 13:08 89 04/19/23 12:34 89 19 139/96 97 04/19/23 11:47 36.6 C 81 20 144/81 H 97 O2 Del Method 04/19/23 14:26 Room Air 04/19/23 13:08 04/19/23 12:34 Room Air 04/19/23 11:47 Room Air Laboratory Results Short CBC 04/19/23 Range/Units 12:20 WBC 5.21 (4.8-10.8) K/ul Hgb 10.9 L (12.0-16.0) g/dl Hct 35.0 L (37.0-47.0) % Plt Count 276 (130-400) K/uL BMP 04/19/23 12:20 Sodium 140 Potassium 3.9 Chloride 107 Carbon Dioxide 27 BUN 21 Creatinine 1.21 H Glucose 115 H Calcium 9.4 Liver Function 04/19/23 Range/Units 12:20 Total Bilirubin 0.6 (0.2-1.0) mg/dl AST 17 (13-39) U/L ALT 8 (7-52) U/L Alkaline Phosphatase 23 L (34-104) U/L Albumin 4.1 (3.4-5.0) gm/dl Urine 04/19/23 Range/Units 13:38 Urine Color Yellow Urine Appearance Clear (Clear) Urine pH 7.0 (4.5-7.5) Ur Specific [place] 1.010 (1.000-1.030) Urine Protein Negative (Negative) Urine Glucose (UA) Negative (Negative) Diagnostic Findings Chest X-Ray 04/19/23 12:43 XR chest 1V portable CLINICAL HISTORY: Dyspnea on exertion, leg swelling COMPARISON STUDY: Chest radiograph and chest CT December 28, 2022. FINDINGS: There is no pneumothorax. There is slight blunting of both costophrenic angles. Cardiomegaly is noted. 1.9 cm subtle density projects of the right lower lung. In addition, there is possible retrocardiac opacity. There is pulmonary vascular congestion without overt pulmonary edema. IMPRESSION: 1. Cardiomegaly. Pulmonary vascular congestion without overt pulmonary edema. 2. Trace bilateral pleural effusions. 3. Lower lung opacities, as described above. These could be artifactual or atelectatic however small foci of pneumonia could appear similar. Radiographic follow-up is recommended to ensure resolution. ACT 112: Negative or not required by law. Electronically signed by: Jon Mcdaniel M.D. 04/19/2023 1:09 PM Code Status & VTE Plan Code Status Patient is a DNR as per my discussion with her. Supervising Physician Co-Signing Physician Notes Patient was seen and examined independently. Chart reviewed. Case discussed with TERRY
--- NOTE | 2023-04-19 15:49 | Cardiology Consultation ---
Date of Consultation April 19, 2023 Assessment & Plan (1) Acute on chronic diastolic heart failure with preserved ejection fraction: (2) Chronic a-fib: (3) HTN (hypertension): (4) History of pulmonary embolism: Plan Patient admitted with worsening fatigue and SOB. patient was concerned with low iron/hbg and came for evaluation. Hbg improved at 10.9 She has signs/symptoms of volume overload on exam. She admits to not weighing herself and not following a low sodium diet. She has not taken her home furosemide in several weeks. Recommend initiation of IV furosemide. She already received dose in ER. Would start furosemide 40 mg IV monitor renal function and potassium. May consider spironolactone as well pending initial response to diuretics. Afib rates are relatively well controlled. Continue current dose of metoprolol and Eliquis Update echo given persistent afib and prior diagnosis of PE. Evaluate LV/RV function, pulm pressures. Patient is hypertensive in ER. Hopefully with resuming her home oral medications and IV diuretics with improved volume status, BP will trend down. Monitor. Will follow. Case discussed with Dr. Huang I spent a total of 45 minutes on the date of service in preparation, delivery, and documentation of the care provided to this patient, excluding any time spent in the performance of separately billed services. Melissa Lieberman PA-C Department of Cardiology, [facility] This chart was completed in part utilizing Speech Voice Recognition Software. Grammatical errors, random word insertions, pronoun errors, and incomplete sentences are an occasional consequence of this system due to software limitations, ambient noise, and hardware issues. Any formal questions or concerns about the content, text, or information contained within the body of this dictation should be directly addressed to the provider for clarification. Supervising Physician Co-Signing Physician Notes Supervising Physician Attestation: I have personally performed a history and physical examination on the patient. I agree with the physician embalmer assistant's findings and plan as documented with the following additions. Subjective: Patient describes progressive generalized easy fatigability, shortness of breath with exertion, progressive lower extremity edema over the last few months. Exam: Cardiovascular: Irregular rhythm, no murmurs, 2+ lower extremity edema Pulmonary: Mildly decreased breath sounds at the bases bilaterally Data: EKG performed 04/19/2023 and interpreted independently: Atrial fibrillation at 90 bpm, poor R wave progression in the anterior precordial leads, diffuse T wave flattening. Compared to the previous tracing performed 02/05/2023, relatively unchanged Assessment and Plan: Dyspnea on exertion with radiographic and clinical findings suggestive of acute heart failure decompensation -Update echocardiogram -Agree with IV diuretics -Continue anticoagulation with Eliquis for history of pulmonary embolism and atrial fibrillation. Marcos Huang, DO History of Present Illness Reason for Consultation: SOB; CHF Requesting Physician: JEY Morgan Attending Physician: Dr. Huang History of Present Illness Patient is an 78 year old female who is known to [facility] cardiology for history of: 1.Persistent atrial fibrillation diagnosed 12/29/2022 in the setting of PE, [id number] score of 5 (age 1, female, HTN, DM) -100% burden of afib on recent ZIO with controlled rates 2.History of DVT/PE 12/29/2022 3.Hypertension with hypertensive kidney disease, CKD stage 3 4.Type 2 diabetes 5.GERD 6. Iron deficiency anemia with recent admission with hbg of 5.9 (02/05/23), receiving 2 units PRBC's; now on iron supplementation Patient reports worsening fatigue over the last several days. She was concerned that her hemoglobin was dropping and contact PCP office earlier today for evaluation. Upon arrival, patient was found to be hypervolemic and hypertensive and was sent to the ER for evaluation. Hemoglobin on arrival was 10.9. Chest x-ray revealed pulmonary vascular congestion. Patient admits to not taking her furosemide over the last several weeks. She was previously taking this intermittently for lower extremity edema. She has not been weighing herself. She notes worsening cough and shortness of breath over the last few days. Last night she did not sleep well due to orthopnea. EKG demonstrates afib with controlled rate, poor R wave progression and low voltage QRS. No chest pain reported. At time of consult, patient reports concerns about worsening LE edema over the last few days and SOB. Received IV lasix in the ER and reports frequent trips already to the restroom. She denies chest pain, palpitations, dizziness. she reports compliance with all her medications including Eliquis. She has not taken furosemide in 2 weeks Allergies Allergy/AdvReac Type Severity Reaction Status Date / Time house dust Allergy Intermediate SNEEZING, Verified 04/19/23 14:48 CONGESTION pollen extracts Allergy Intermediate SNEEZING, Verified 04/19/23 14:48 CONGESTION betamethasone AdvReac Severe ELEVATED Verified 04/19/23 14:48 BLOOD SUGAR Home Medications Medication Instructions Recorded Confirmed Type alendronate 70 mg tablet 70 mg PO WK 12/28/22 04/19/23 History amlodipine 10 mg tablet 10 mg PO QAM 12/28/22 04/19/23 History amoxicillin 500 mg tablet 2,000 mg PO DIRECTED PRN PRIOR 12/28/22 04/19/23 History TO PROCEDURES cholecalciferol (vitamin D3) 125 125 mcg PO HS 12/28/22 04/19/23 History mcg (5,000 unit) tablet (Vitamin D3) fenofibrate nanocrystallized 145 145 mg PO QDD 12/28/22 04/19/23 History mg tablet fluticasone propionate 50 2 spray intranasal QAM PRN Allergy 12/28/22 04/19/23 History mcg/actuation nasal Symptoms spray,suspension lisinopril 40 mg tablet 40 mg PO QAM 12/28/22 04/19/23 History potassium chloride 20 mEq 20 meq PO QDL 12/28/22 04/19/23 History tablet,extended release apixaban 5 mg tablet (Eliquis) 5 mg PO BID 02/05/23 04/19/23 History metoprolol succinate 25 mg 37.5 mg PO BID 02/05/23 04/19/23 History tablet,extended release 24 hr pantoprazole 40 mg tablet,delayed 40 mg PO BID #60 tabs 02/09/23 04/19/23 Rx release ferrous sulfate 325 mg (65 mg 325 mg PO BID 04/19/23 04/19/23 History iron) tablet Patient History Medical History Atrial fibrillation CKD (chronic kidney disease), stage III Diet-controlled type 2 diabetes mellitus GERD (gastroesophageal reflux disease) History of DVT (deep vein thrombosis) History of pulmonary embolism HLD (hyperlipidemia) HTN (hypertension) Lower extremity edema Osteoporosis Upper GI bleed Surgical History History of partial colectomy History of total left knee replacement (TKR) Social History Smoking Status: Never smoker Hx Alcohol Use: No Hx Substance Use: No Preferred Language: Pashto Communication Ability: Effective Supervisor Purification Required: No Beliefs That Will Affect Care: None Current Living Situation: Alone Feels Safe at Home: Yes Assistive Devices: Denture - Upper, Denture - Lower and Glasses Review of Systems Review of Systems: All systems reviewed & are unremarkable except as noted in HPI & below Physical Exam Constitutional: WD/WN, vitals as above no acute distress Neck: trachea midline, no thyromegaly Respiratory: + abnormal respiratory effort (Mild conversational dyspnea) and no labored breathing Auscultation: + crackles (bases bl ) Cardiovascular: Rate/Rhythm: + irregularly irregular Heart Sounds: no murmur Vessels: + JVD Extremities: + edema (2+ hard indurated edema to thighs) Gastrointestinal (Abdomen): normal bowel sounds, soft, nontender, no hepatosplenomegaly Skin: no rashes, warm and dry Neurologic: PERRL, EOMI, accommodation nl, no face palsy, no dysarthria Results & Data Vital Signs (Past 12 Hours) Vital Signs Temp Pulse Pulse Resp BP BP Pulse Ox 04/19/23 14:26 98 H 22 166/104 H 97 04/19/23 13:08 89 04/19/23 12:34 89 19 139/96 97 04/19/23 11:47 36.6 C 81 20 144/81 H 97 O2 Del Method 04/19/23 14:26 Room Air 04/19/23 13:08 04/19/23 12:34 Room Air 04/19/23 11:47 Room Air Laboratory Results Cardiac Enzymes 04/19/23 04/19/23 Range/Units 12:20 12:56 AST 17 (13-39) U/L Troponin I High Sens 8.5 (0-14) pg/ml B-Natriuretic Peptide 566 H (0-100) pg/ml Coagulation 04/19/23 Range/Units 12:56 B-Natriuretic Peptide 566 H (0-100) pg/ml CBC 04/19/23 Range/Units 12:20 WBC 5.21 (4.8-10.8) K/ul RBC 3.90 L (4.20-5.40) M/uL Hgb 10.9 L (12.0-16.0) g/dl Hct 35.0 L (37.0-47.0) % Plt Count 276 (130-400) K/uL Neut # (Auto) 3.78 (1.40-6.50) K/uL Lymph # (Auto) 0.70 L (1.2-3.4) K/uL Alexander # (Auto) 0.60 H (0.11-0.59) K/uL Eos # (Auto) 0.09 (0-0.50) K/uL Baso # (Auto) 0.03 (0-0.2) K/uL Comprehensive Metabolic Panel 04/19/23 Range/Units 12:20 Sodium 140 (136-145) mmol/L Potassium 3.9 (3.5-5.1) mmol/L Chloride 107 (98-107) mmol/L Carbon Dioxide 27 (21-32) mmol/L BUN 21 (6-23) mg/dl Creatinine 1.21 H (0.6-1.2) mg/dl Glucose 115 H (70-99(Fasting)) mg/dl Calcium 9.4 (8.6-10.3) mg/dl AST 17 (13-39) U/L ALT 8 (7-52) U/L Alkaline Phosphatase 23 L (34-104) U/L Total Protein 7.4 (6.0-8.3) gm/dl Albumin 4.1 (3.4-5.0) gm/dl Intake and Output 04/19/23 04/19/23 04/19/23 06:59 14:59 22:59 Other: Weight 78.8 kg Weight Measurement Method Chair Scale Patient Weight 04/20/23 06:59 Weight 78.8 kg Diagnostic Findings Telemetry reviewed: currently not on live telemetry, prior telemetry reviewed - afib with controlled rates EKG on admission: Atrial fibrillation with relatively controlled rate Poor R wave progression Low voltage QRS. no significant change from previous Chest xray report reviewed today: IMPRESSION: 1. Cardiomegaly. Pulmonary vascular congestion without overt pulmonary edema. 2. Trace bilateral pleural effusions. 3. Lower lung opacities, as described above. These could be artifactual or atelectatic however small foci of pneumonia could appear similar. Radiographic follow-up is recommended to ensure resolution. Echo from Nov 2022 reviewed: Normal LVEF at 65% Mildly enlarged left atrium Mild MR Mild pulm hypertension
[2023-04-19] MEDS ORDERED: ACETAMINOPHEN 325 MG TAB PO PRN (17:33)
[2023-04-19] MEDS: FENOFIBRATE NANOCRYSTALLIZED 145 MG TABLET PO SCH (21:20)
[2023-04-19] MEDS: METOPROLOL SUCC 25MG EXT REL TAB PO SCH (21:20)
[2023-04-19] MEDS: PANTOprazole 40 MG TAB PO SCH (21:21)
[2023-04-19] MEDS: APIXABAN 5 MG TABLET PO SCH (21:22)
[2023-04-20 06:36] LABS: Hematocrit (blood only) 32.7 % (37.0-47.0); Hemoglobin 10.4 g/dl (12.0-16.0); Mean Corpuscular Hemoglobin 28.2 pg (25.0-34.0); Mean Corpuscular Hgb Conc 31.8 g/dL (32.0-36.0); Mean Corpuscular Volume 88.6 fL (80.0-100.0); Mean Platelet Volume 10.8 fL (9.4-12.4); Platelet Count 264 K/uL (130-400); RDW Coefficient of Variation 19.1 % (11.5-14.5); RDW Standard Deviation 62.4 fL (36.4-46.3); Red Blood Count 3.69 M/uL (4.20-5.40); White Blood Count 5.78 K/ul (4.8-10.8)
[2023-04-20 07:02] LABS: BUN Creatinine Ratio 19.5 (10-20); Calcium 9.1 mg/dl (8.6-10.3); Creatinine Clr Calc Pharmacy 38.9 ml/min; Est GFR (African American) 53.2 ml/min; Est GFR (Non-African American) 45.9 ml/min; Magnesium 1.7 mg/dl (1.7-2.4); Potassium 3.4 mmol/L (3.5-5.1)
[2023-04-20] MEDS: FUROSEMIDE 40 MG/4 ML VIAL IV SCH (08:04)
[2023-04-20] MEDS: PANTOprazole 40 MG TAB PO SCH ×2 (08:04→20:12)
[2023-04-20] MEDS: METOPROLOL SUCC 25MG EXT REL TAB PO SCH ×2 (08:04→20:12)
[2023-04-20] MEDS: APIXABAN 5 MG TABLET PO SCH ×2 (08:04→20:12)
[2023-04-20] MEDS: lisinopril 40 MG TAB PO SCH (08:05)
[2023-04-20] MEDS: FERROUS SULFATE 325 MG TAB PO SCH ×2 (08:12→17:22)
[2023-04-20] MEDS ORDERED: amLODIPine BESYLATE 5 MG TAB PO SCH (09:00)
--- NOTE | 2023-04-20 09:18 | Electrocardiogram Report ---
Test Reason : Blood Pressure : / mmHG Vent. Rate : 080 BPM Atrial Rate : 080 BPM P-R Int : 000 ms QRS Dur : 082 ms QT Int : 358 ms P-R-T Axes : 000 -12 -21 degrees QTc Int : 412 ms Atrial fibrillation Low voltage QRS Cannot rule out Anterior infarct (cited on or before 05-FEB-2023) Abnormal ECG When compared with ECG of 19-APR-2023 12:21, No significant change Confirmed by Dashawn Infante ([id number]) on 04/20/2023 9:18:27 AM Referred By: REFERRED SELF Confirmed By:Dashawn Infante
[2023-04-20] MEDS: SPIRONOLACTONE 12.5 MG TAB PO SCH (12:07)
[2023-04-20] MEDS: POTASSIUM CHLORIDE CRTAB 20 MEQ TABCR PO SCH (12:07)
--- NOTE | 2023-04-20 14:57 | Cardiology Progress Note ---
Date of Service April 20, 2023 Assessment & Plan (1) Acute on chronic diastolic heart failure with preserved ejection fraction: (2) Chronic a-fib: (3) HTN (hypertension): (4) History of pulmonary embolism: Plan Patient admitted with worsening fatigue and SOB. patient was concerned with low iron/hbg and came for evaluation. Hbg improved at 10.9 She has signs/symptoms of volume overload on exam, consistent with acute on chronic HFpEF. She admits to not weighing herself and not following a low sodium diet. She has not taken her home furosemide in several weeks. Improved symptoms with IV diuresis over the last 24 hours. Continue furosemide IV - give one additional dose this afternoon. Add spironolactone 12.5 mg daily monitor renal function and potassium. Afib rates well controlled. Continue current dose of metoprolol and Eliquis. Update echo given persistent afib and prior diagnosis of PE. Evaluate LV/RV function, pulm pressures. Echo results pending Patient was hypertensive in ER. BP trending down with diuresis and home medications. Case discussed with Dr. Huang I spent a total of 35 minutes on the date of service in preparation, delivery, and documentation of the care provided to this patient, excluding any time spent in the performance of separately billed services. Melissa Lieberman PA-C Department of Cardiology, [facility] This chart was completed in part utilizing Speech Voice Recognition Software. Grammatical errors, random word insertions, pronoun errors, and incomplete sentences are an occasional consequence of this system due to software limitations, ambient noise, and hardware issues. Any formal questions or concerns about the content, text, or information contained within the body of this dictation should be directly addressed to the provider for clarification. Admission and Anticipated Discharge Date Admission Date: April 19, 2023 Supervising Physician Co-Signing Physician Notes Supervising Physician Attestation: I have personally performed a history and physical examination on the patient. I agree with the physician tourist information assistant's findings and plan as documented with the following additions. Subjective: Patient notes respiratory status improved. Still with ongoing lower extremity edema. Exam: Pulmonary: Mildly decreased breath sounds at the bases Cardiovascular: Irregular rhythm, no murmurs, plus lower extremity edema Data: Potassium 3.4 Assessment and Plan: Acute heart failure with preserved ejection fraction. Continue furosemide 40 mg IV twice daily, potassium supplementation potassium chloride 20 mill equivalents daily, spironolactone 12.5 mg daily. Continue rate control for atrial fibrillation with metoprolol succinate 37 mg twice daily, Eliquis 5 mg twice daily. Wean amlodipine from 10 mg to 5 mg daily given lower extremity edema. DVT prophylaxis: Continue anticoagulation with Eliquis. Marcos Huang, DO Subjective Patient ambulating in room this morning. Feeling better. SOB improved from admission. Conversational dyspnea improved. Edema still present but improved. No chest pain. I+O's not measured overnight Review of Systems Review of Systems: All systems reviewed & are unremarkable except as noted in HPI & below Physical Exam Constitutional: WD/WN, vitals as above no acute distress Neck: trachea midline, no thyromegaly Respiratory: normal respiratory effort; no labored breathing Auscultation: + crackles (bases bl ) Cardiovascular: Rate/Rhythm: + irregularly irregular Heart Sounds: no murmur Extremities: + edema (1+ ankle and pretibial edema) Gastrointestinal (Abdomen): normal bowel sounds, soft, nontender, no hepatosplenomegaly Skin: no rashes, warm and dry Neurologic: PERRL, EOMI, accommodation nl, no face palsy, no dysarthria Results & Data Vital Signs (Past 12 Hours) Vital Signs Temp Pulse Pulse Resp BP Pulse Ox O2 Del Method 04/20/23 12:09 36.6 C 87 125/74 97 Room Air 04/20/23 05:59 102 H 04/20/23 07:58 36.7 C 90 18 151/80 H 95 Room Air 04/20/23 04:30 36.6 C 94 H 18 125/71 93 Room Air Laboratory Results CBC 04/20/23 Range/Units 05:38 WBC 5.78 (4.8-10.8) K/ul RBC 3.69 L (4.20-5.40) M/uL Hgb 10.4 L (12.0-16.0) g/dl Hct 32.7 L (37.0-47.0) % Plt Count 264 (130-400) K/uL Comprehensive Metabolic Panel 04/20/23 Range/Units 05:38 Sodium 142 (136-145) mmol/L Potassium 3.4 L (3.5-5.1) mmol/L Chloride 106 (98-107) mmol/L Carbon Dioxide 29 (21-32) mmol/L BUN 22 (6-23) mg/dl Creatinine 1.13 (0.6-1.2) mg/dl Glucose 92 (70-99(Fasting)) mg/dl Calcium 9.1 (8.6-10.3) mg/dl Intake and Output 04/20/23 04/20/23 04/20/23 06:59 14:59 22:59 Intake Total 0 / 0 480 / 480 Output Total 200 / 500 1000 / 1000 Balance -200 / -500 -520 / -520 Intake: Oral 0 / 0 480 / 480 Output: Urine 200 / 500 1000 / 1000 Other: Weight 76.476 kg Diagnostic Findings Telemetry reviewed: Atrial fibrillation with HR's in the 70-80's Medications Administered Current Inpatient Medications Acetaminophen (Acetaminophen 325 Mg Tab) 650 mg PO Q4H PRN PRN Reason: Pain or Fever Stop: 05/19/23 17:32 Amlodipine Besylate (Amlodipine Besylate 5 Mg Tab) 10 mg PO QAM [facility] Stop: 05/20/23 08:59 Last Admin: 04/20/23 08:04 Dose: 10 mg Apixaban (Apixaban 5 Mg Tablet) 5 mg PO BID [facility] Stop: 05/19/23 20:59 Last Admin: 04/20/23 08:04 Dose: 5 mg Fenofibrate (Fenofibrate Nanocrystallized 145 Mg Tablet) 145 mg PO QDD [facility] Stop: 05/19/23 17:32 Last Admin: 04/19/23 21:20 Dose: 145 mg Ferrous Sulfate (Ferrous Sulfate 325 Mg Tab) 325 mg PO BIDM [facility] Stop: 05/20/23 07:59 Last Admin: 04/20/23 08:12 Dose: 325 mg Furosemide (Furosemide 40 Mg/4 Ml Vial) 40 mg IV DAILY [facility] Stop: 05/20/23 08:59 Last Admin: 04/20/23 08:04 Dose: 40 mg Lisinopril (Lisinopril 40 Mg Tab) 40 mg PO QAM [facility] Stop: 05/20/23 08:59 Last Admin: 04/20/23 08:05 Dose: 40 mg Metoprolol Succinate (Metoprolol Succ 25mg Ext Rel Tab) 37.5 mg PO BID [facility] Stop: 05/19/23 20:59 Last Admin: 04/20/23 08:04 Dose: 37.5 mg Pantoprazole Sodium (Pantoprazole 40 Mg Tab) 40 mg PO BID [facility] Stop: 05/19/23 20:59 Last Admin: 04/20/23 08:04 Dose: 40 mg Potassium Chloride (Potassium Chloride Crtab 20 Meq Tabcr) 20 meq PO QDL [facility] Stop: 05/20/23 11:29 Last Admin: 04/20/23 12:07 Dose: 20 meq Spironolactone (Spironolactone 12.5 Mg Tab) 12.5 mg PO DAILY [facility] Stop: 05/20/23 11:14 Last Admin: 04/20/23 12:07 Dose: 12.5 mg
[2023-04-20] MEDS ORDERED: FUROSEMIDE 40 MG/4 ML VIAL IV ONE (15:13)
[2023-04-20] MEDS ORDERED: POTASSIUM CHLORIDE CRTAB 20 MEQ TABCR PO ONE (15:14)
--- NOTE | 2023-04-20 15:15 | Hospitalist Progress Note ---
Date of Service April 20, 2023 Assessment & Plan (1) Acute CHF: Plan: Patient presenting by referral of PCPs office for evaluation of lower extremity edema and shortness of breath. Diagnosed with atrial fibrillation in November 2022, echocardiogram at that time showed EF of 55 to 60%, mild mitral regurgitation, mild tricuspid regurgitation, mild pulmonary hypertension. Treated with short courses of Lasix by PCP in January and February Chest x-ray personally reviewed from admission; shows cardiomegaly with pulm vascular congestion Labs reviewed; proBNP of 566 Discussed with cardiology; recommended continued diuresis for now with IV Lasix. Recommend addition of spironolactone 12.5 mg. Strict input and output monitoring. (2) Atrial fibrillation: Plan: EKG on admission personally reviewed; demonstrates atrial fibrillation rate 98 On metoprolol for rate control, anticoagulated on Eliquis (3) History of DVT (deep vein thrombosis): (4) History of pulmonary embolism: Plan: On Eliquis (5) HTN (hypertension): Plan: Continue metoprolol, lisinopril, amlodipine. (6) Diet-controlled type 2 diabetes mellitus: Plan: Hgb A1c 5.9 12/2022 Glucose 115 on today's labs, continue to monitor and add NovoLog per protocol if needed (7) CKD (chronic kidney disease), stage III: Plan: Baseline creatinine ~ 1.1 Continue to monitor with diuresis (8) Anemia: Plan: Admitted 01/2023 for anemia due to upper GI bleeding. Found to have mild esophagitis, erosive gastropathy in the EGD done during the admission. Labs reviewed; hemoglobin stable. Continue iron replacement DVT PROPHYLAXIS On Eliquis Time spent evaluating patient, direct bedside care, chart review, placing orders, interpretation of diagnostic studies, discussion with consultants, patient, and family members, as well as other required patient management activities is 60 minutes. Please note the above document was generated using voice recognition software. It may contain grammatical, syntax or spelling errors. Any formal questions or concerns about the content, text or information contained within the body of this dictation should be directly addressed to the provider for clarification Admission and Anticipated Discharge Date Admission Date: April 19, 2023 Subjective Patient seen and examined at bedside. She is comfortably sitting up on the bed; not in distress. Denies any shortness of breath. Review of Systems Review of Systems: All systems reviewed & are unremarkable except as noted in Subjective Physical Exam Physical Exam: Constitutional: WD/WN, vitals as above, NAD, sitting up in bed, pleasant, conversing easily Respiratory: Bilateral clear breath sound Cardiovascular: RRR, no murmur, no edema Vessels: no JVD or carotid bruit Chest: normal inspection of chest Abdomen: normal bowel sounds, soft, nontender, no hepatosplenomegaly Musculoskeletal: no cyanosis or clubbing, extremities motor strength 5/5 Skin: no rashes, warm and dry normal turgor Neurologic: PERRL, EOMI, accommodation nl, no face palsy, no dysarthria CN's II- XI intact bilaterally and moves all extremities Psychiatric: A+Ox3, euthymic affect Lymphatic: no cervical or axillary lymphadenopathy : deferred Results & Data Results & Data Vital Signs (Past 12 Hours) Vital Signs Temp Pulse Pulse Resp BP Pulse Ox O2 Del Method 04/20/23 12:09 36.6 C 87 125/74 97 Room Air 04/20/23 05:59 102 H 04/20/23 07:58 36.7 C 90 18 151/80 H 95 Room Air 04/20/23 04:30 36.6 C 94 H 18 125/71 93 Room Air Laboratory Results Laboratory Results WBC 5.78 K/ul (4.8-10.8) 04/20/23 05:38 RBC 3.69 M/uL (4.20-5.40) L 04/20/23 05:38 Hgb 10.4 g/dl (12.0-16.0) L 04/20/23 05:38 Hct 32.7 % (37.0-47.0) L 04/20/23 05:38 MCV 88.6 fL (80.0-100.0) 04/20/23 05:38 MCH 28.2 pg (25.0-34.0) 04/20/23 05:38 MCHC 31.8 g/dL (32.0-36.0) L 04/20/23 05:38 RDW Std Deviation 62.4 fL (36.4-46.3) H 04/20/23 05:38 RDW Coeff of [place] 19.1 % (11.5-14.5) H 04/20/23 05:38 Plt Count 264 K/uL (130-400) 05/23/23 05:38 MPV 10.8 fL (9.4-12.4) 04/20/23 05:38 Immature Gran % (Auto) 0.2 % 04/19/23 12:20 Neut % (Auto) 72.6 % 04/19/23 12:20 Lymph % (Auto) 13.4 % 04/19/23 12:20 [place] % (Auto) 11.5 % 04/19/23 12:20 Eos % (Auto) 1.7 % 04/19/23 12:20 Baso % (Auto) 0.6 % 04/19/23 12:20 Neut # (Auto) 3.78 K/uL (1.40-6.50) 04/19/23 12:20 Lymph # (Auto) 0.70 K/uL (1.2-3.4) L 04/19/23 12:20 [place] # (Auto) 0.60 K/uL (0.11-0.59) H 04/19/23 12:20 Eos # (Auto) 0.09 K/uL (0-0.50) 04/19/23 12:20 Baso # (Auto) 0.03 K/uL (0-0.2) 04/19/23 12:20 Immature Gran # (Auto) 0.01 K/uL (0.01-0.20) 04/19/23 12:20 Sodium 142 mmol/L (136-145) 04/20/23 05:38 Potassium 3.4 mmol/L (3.5-5.1) L 04/20/23 05:38 Chloride 106 mmol/L (98-107) 04/20/23 05:38 Carbon Dioxide 29 mmol/L (21-32) 04/20/23 05:38 Anion Gap 7 (3-11) 04/20/23 05:38 BUN 22 mg/dl (6-23) 04/20/23 05:38 Creatinine 1.13 mg/dl (0.6-1.2) 04/20/23 05:38 Est Cr Clr Drug Dosing 38.9 ml/min 04/20/23 05:38 Est GFR ( Amer) 53.2 ml/min 04/20/23 05:38 Est GFR (Non-Af Amer) 45.9 ml/min 04/20/23 05:38 BUN/Creatinine Ratio 19.5 (10-20) 04/20/23 05:38 Glucose 92 mg/dl (70-99(Fasting)) 04/20/23 05:38 Calcium 9.1 mg/dl (8.6-10.3) 04/20/23 05:38 Magnesium 1.7 mg/dl (1.7-2.4) 04/20/23 05:38 Iron 68 mcg/dl (35-150) 04/19/23 12:20 TIBC 501 mcg/dl (250-450) H 04/19/23 12:20 Unsaturated IBC 433 mcg/dl (155-355) H 04/19/23 12:20 Transferrin % Sat 14 % (15-50) L 04/19/23 12:20 Total Bilirubin 0.6 mg/dl (0.2-1.0) 04/19/23 12:20 AST 17 U/L (13-39) 04/19/23 12:20 ALT 8 U/L (7-52) 04/19/23 12:20 Alkaline Phosphatase 23 U/L (34-104) L 04/19/23 12:20 Troponin I High Sens 8.5 pg/ml (0-14) 04/19/23 12:20 B-Natriuretic Peptide 566 pg/ml (0-100) H 04/19/23 12:56 Total Protein 7.4 gm/dl (6.0-8.3) 04/19/23 12:20 Albumin 4.1 gm/dl (3.4-5.0) 04/19/23 12:20 Globulin 3.3 gm/dl (2.5-4.0) 04/19/23 12:20 Albumin/Globulin Ratio 1.2 (0.9-2) 04/19/23 12:20 Lipase 54 U/L (11-82) 04/19/23 12:20 TSH 3.550 uIu/ml (0.300-4.500) 04/19/23 12:56 Urine Color Yellow 04/19/23 13:38 Urine Appearance Clear (Clear) 04/19/23 13:38 Urine pH 7.0 (4.5-7.5) 04/19/23 13:38 Ur Specific [place] 1.010 (1.000-1.030) 04/19/23 13:38 Urine Protein Negative (Negative) 04/19/23 13:38 Urine Glucose (UA) Negative (Negative) 04/19/23 13:38 Urine Ketones Negative (Negative) 04/19/23 13:38 Urine Blood Negative (Negative) 04/19/23 13:38 Urine Nitrite Negative (Negative) 04/19/23 13:38 Urine Bilirubin Negative (Negative) 04/19/23 13:38 Urine Urobilinogen Negative (Negative) 04/19/23 13:38 Ur Leukocyte Esterase 1+ (Negative) H 04/19/23 13:38 Urine WBC (Auto) 5-10 /hpf (0-5) H 04/19/23 13:38 Urine RBC (Auto) 0-4 /hpf (0-4) 04/19/23 13:38 U Hyaline Cast (Auto) 0 /lpf (0-5) 04/19/23 13:38 U Epithel Cells (Auto) 10-20 /lpf (0-5) H 04/19/23 13:38 Urine Bacteria (Auto) Negative (Negative) 04/19/23 13:38 SARS-CoV-2, RNA, NAAT NEGATIVE (NEGATIVE) 04/19/23 14:43 Impressions Chest X-Ray 04/19/23 12:43 XR chest 1V portable CLINICAL HISTORY: Dyspnea on exertion, leg swelling COMPARISON STUDY: Chest radiograph and chest CT December 28, 2022. FINDINGS: There is no pneumothorax. There is slight blunting of both costophrenic angles. Cardiomegaly is noted. 1.9 cm subtle density projects of the right lower lung. In addition, there is possible retrocardiac opacity. There is pulmonary vascular congestion without overt pulmonary edema. IMPRESSION: 1. Cardiomegaly. Pulmonary vascular congestion without overt pulmonary edema. 2. Trace bilateral pleural effusions. 3. Lower lung opacities, as described above. These could be artifactual or atelectatic however small foci of pneumonia could appear similar. Radiographic follow-up is recommended to ensure resolution. ACT 112: Negative or not required by law. Electronically signed by: Jon Mcdaniel M.D. 04/19/2023 1:09 PM
[2023-04-20] MEDS: FENOFIBRATE NANOCRYSTALLIZED 145 MG TABLET PO SCH (16:13)
[2023-04-21 07:03] LABS: BUN Creatinine Ratio 17.4 (10-20); Calcium 9.3 mg/dl (8.6-10.3); Creatinine Clr Calc Pharmacy 29.1 ml/min; Est GFR (African American) 38.1 ml/min; Est GFR (Non-African American) 32.8 ml/min; Potassium 3.9 mmol/L (3.5-5.1)
[2023-04-21] MEDS: FERROUS SULFATE 325 MG TAB PO SCH (08:00)
[2023-04-21] MEDS: SPIRONOLACTONE 12.5 MG TAB PO SCH (08:01)
[2023-04-21] MEDS: PANTOprazole 40 MG TAB PO SCH (08:01)
[2023-04-21] MEDS: APIXABAN 5 MG TABLET PO SCH (08:01)
[2023-04-21] MEDS: lisinopril 40 MG TAB PO SCH (08:01)
[2023-04-21] MEDS: METOPROLOL SUCC 25MG EXT REL TAB PO SCH (08:01)
[2023-04-21] MEDS: FUROSEMIDE 40 MG/4 ML VIAL IV SCH (08:40)
[2023-04-21] MEDS ORDERED: amLODIPine BESYLATE 5 MG TAB PO SCH (09:00)
--- NOTE | 2023-04-21 11:22 | Electrocardiogram Report ---
Test Reason : Blood Pressure : / mmHG Vent. Rate : 099 BPM Atrial Rate : 136 BPM P-R Int : 000 ms QRS Dur : 078 ms QT Int : 336 ms P-R-T Axes : 000 007 -28 degrees QTc Int : 431 ms Atrial fibrillation with premature ventricular or aberrantly conducted complexes Septal infarct (cited on or before 05-FEB-2023) Abnormal ECG When compared with ECG of 20-APR-2023 06:12, No significant change was found Confirmed by Dashawn Infante ([id number]) on 04/21/2023 11:22:03 AM Referred By: REFERRED SELF Confirmed By:Dashawn Infante
[2023-04-21] MEDS: POTASSIUM CHLORIDE CRTAB 20 MEQ TABCR PO SCH (11:39)
--- NOTE | 2023-04-21 13:34 | Cardiology Progress Note ---
Date of Service April 21, 2023 Assessment & Plan (1) Acute on chronic diastolic heart failure with preserved ejection fraction: (2) Chronic a-fib: (3) HTN (hypertension): (4) History of pulmonary embolism: Plan Stable for discharge on torsemide 20 mg PO daily in am, spironolactone 12.5 mg daily in am. Continue DIGITAL PRINT OPERATOR metoprolol , lisinopril, potassium and Eliquis. cardiology follow up in 1-4 weeks. Admission and Anticipated Discharge Date Admission Date: April 19, 2023 Subjective Patient seen in cardiology follow up. Feeling improved. Walked in hallway this am with less shortness of breath. Telemetry reveals SR rhythm in the 80s to 90s. Physical Exam Constitutional: WD/WN, vitals as above no acute distress Neck: trachea midline, no thyromegaly Respiratory: normal respiratory effort; no labored breathing Auscultation: lungs clear to auscultation bilaterally Cardiovascular: Rate/Rhythm: + irregularly irregular Heart Sounds: no murmur Vessels: + JVD Extremities: + edema (1+ ankle and pretibial edema) Gastrointestinal (Abdomen): normal bowel sounds, soft, nontender, no hepatosplenomegaly Skin: no rashes, warm and dry Neurologic: PERRL, EOMI, accommodation nl, no face palsy, no dysarthria Results & Data Vital Signs (Past 12 Hours) Vital Signs Temp Pulse Pulse Resp BP BP Pulse Ox 04/21/23 12:25 36.4 C L 90 16 112/69 97 04/21/23 07:56 36.6 C 88 18 118/73 94 04/21/23 05:51 96 H 04/21/23 04:00 36.9 C 84 18 116/76 93 O2 Del Method 04/21/23 12:25 Room Air 04/21/23 07:56 Room Air 04/21/23 05:51 04/21/23 04:00 Room Air Laboratory Results Comprehensive Metabolic Panel 04/21/23 Range/Units 06:17 Sodium 141 (136-145) mmol/L Potassium 3.9 (3.5-5.1) mmol/L Chloride 104 (98-107) mmol/L Carbon Dioxide 30 (21-32) mmol/L BUN 26 H (6-23) mg/dl Creatinine 1.49 H D (0.6-1.2) mg/dl Glucose 108 H (70-99(Fasting)) mg/dl Calcium 9.3 (8.6-10.3) mg/dl Intake and Output 04/20/23 04/21/23 04/21/23 22:59 06:59 14:59 Intake Total 850 / 1570 240 / 1570 500 / 500 Output Total 800 / 2200 400 / 2200 200 / 200 Balance 50 / -630 -160 / -630 300 / 300 Intake: Oral 850 / 1570 240 / 1570 500 / 500 Output: Urine 800 / 2200 400 / 2200 200 / 200 Other: # Unmeasured Voids 3 Weight 74.6 kg 73 kg Weight Measurement Method Built in Bedscale Standing Scale Patient Weight 04/22/23 06:59 Weight 73 kg Diagnostic Findings EKG performed 04/21/2023 revealed atrial fibrillation at 99 bpm, age- indeterminate septal infarct pattern, nonspecific diffuse T wave flattening. Stable findings. Echocardiogram performed 04/20/2023 and interpreted independently: Mild concentric left ventricular hypertrophy Normal LV wall motion, LVEF in the range of 55 to 60%. Moderate tricuspid vegetation Mild pulmonary hypertension with PA systolic pressure estimated to be 47 mmHg. Mild mitral regurgitation is present. Mild biatrial enlargement is present.
--- NOTE | 2023-04-21 16:50 | Discharge Summary ---
Date of Service April 21, 2023 Admission HPI Per Admitting Provider 78-year-old female with PMH diet-controlled DM type II, CKD stage III, dyslipidemia, HTN, GERD, osteoporosis, atrial fibrillation and DVT/PE on Eliquis, and other problems listed below who presents to the ED by referral of PCP for evaluation of lower extremity edema and shortness of breath. History obtained from the patient and review of outpatient PCP records. Patient recently admitted to [facility] 02/05 through 02/09 for anemia secondary to upper GI bleeding due to esophagitis. Patient's Eliquis resumed and started on PPI twice daily. Since being discharged home, patient reports she has been having lower extremity edema. She was placed on 2 short courses of Lasix by PCP in January and February. Over the weekend, patient notes that she became fatigued more easily. She reports shortness of breath with minimal exertion, lower extremity edema, and orthopnea. She was seen at PCPs office today and referred to the ED for further evaluation. Also while at PCPs office, patient's heart rate increased significantly with minimal activity. She denies chest pain and palpitations. No lightheadedness, dizziness, diaphoresis, syncopal events. She denies abdominal pain, nausea, vomiting, diarrhea. No other recent illnesses, fevers, chills. She denies urinary symptoms. In the ED, patient is hemodynamically stable and saturating well on room air. CXR shows pulmonary vascular congestion and trace bilateral pleural effusions. proBNP 566. EKG shows atrial fibrillation rate 98. Patient was given Lasix 40 mg IV. Admission Exam Per Admitting Provider Constitutional: WD/WN, vitals as above no acute distress Eyes: PERRL, conjunctivae normal, anicteric sclerae ENMT: external ear and nose normal, oropharynx normal Respiratory: normal respiratory effort, lungs clear to auscultation Cardiovascular: Rate/Rhythm: regular rate and + irregularly irregular Vessels: normal peripheral pulses Extremities: + edema (+2 pitting edema BLE) Gastrointestinal (Abdomen): normal bowel sounds, soft, nontender, no hepatosplenomegaly Musculoskeletal: no cyanosis or clubbing, extremities motor strength 5/5 Skin: no rashes, warm and dry Neurologic: PERRL, EOMI, accommodation nl, no face palsy, no dysarthria Psychiatric: A+Ox3, euthymic affect Principal Diagnosis Acute on chronic diastolic heart failure Atrial fibrillation Discharge Exam Constitutional: WD/WN, vitals as above, NAD, sitting up in bed, pleasant, conversing easily Respiratory: Bilateral clear breath sound Cardiovascular: RRR, no murmur, no edema Vessels: no JVD or carotid bruit Chest: normal inspection of chest Abdomen: normal bowel sounds, soft, nontender, no hepatosplenomegaly Musculoskeletal: no cyanosis or clubbing, extremities motor strength 5/5 Skin: no rashes, warm and dry normal turgor Neurologic: PERRL, EOMI, accommodation nl, no face palsy, no dysarthria CN's II- XI intact bilaterally and moves all extremities Psychiatric: A+Ox3, euthymic affect Lymphatic: no cervical or axillary lymphadenopathy : deferred Discharge Data Allergies Allergy/AdvReac Type Severity Reaction Status Date / Time house dust Allergy Intermediate SNEEZING, Verified 04/19/23 14:48 CONGESTION pollen extracts Allergy Intermediate SNEEZING, Verified 04/19/23 14:48 CONGESTION betamethasone AdvReac Severe ELEVATED Verified 04/19/23 14:48 BLOOD SUGAR Consultations 04/19/23 14:40 ED Decision to Admit Stat 04/19/23 17:33 Consult Cardiology Routine Hospital Course (1) Acute CHF: Patient presenting by referral of PCPs office for evaluation of lower extremity edema and shortness of breath. Diagnosed with atrial fibrillation in November 2022, echocardiogram at that time showed EF of 55 to 60%, mild mitral regurgitation, mild tricuspid regurgitation, mild pulmonary hypertension. Treated with short courses of Lasix by PCP in January and February Chest x-ray personally reviewed from admission; shows cardiomegaly with pulm vascular congestion Labs reviewed; proBNP of 566 Echocardiogram done in the hospital showed EF of 55 to 60% with mild concentric left ventricular hypertrophy. During the hospitalization, patient was diuresed with IV Lasix. Cardiology was consulted for comanagement. Spironolactone 12.5 mg once daily was added to the medication regimen. At the time of the discharge, patient was saturating well on room air, ambulating without any difficulty and had minimal pitting edema. Amlodipine dose was decreased from 10 mg once daily to 5 mg once daily. (2) Atrial fibrillation: EKG on admission personally reviewed; demonstrates atrial fibrillation rate 98 On metoprolol for rate control, anticoagulated on Eliquis (3) History of DVT (deep vein thrombosis): (4) History of pulmonary embolism: On Eliquis (5) HTN (hypertension): Continue metoprolol, lisinopril, amlodipine. (6) Diet-controlled type 2 diabetes mellitus: Hgb A1c 5.9 12/2022 Glucose 115 on today's labs, continue to monitor and add NovoLog per protocol if needed (7) CKD (chronic kidney disease), stage III: Baseline creatinine ~ 1.1 Continue to monitor with diuresis (8) Anemia: Admitted 01/2023 for anemia due to upper GI bleeding. Found to have mild esophagitis, erosive gastropathy in the EGD done during the admission. Labs reviewed; hemoglobin stable. Continue iron replacement DVT PROPHYLAXIS On Eliquis Please note the above document was generated using voice recognition software. It may contain grammatical, syntax or spelling errors. Any formal questions or concerns about the content, text or information contained within the body of this dictation should be directly addressed to the provider for clarification Total Time Total Time Spent Total Time Spent (In Minutes): 45 Total Time Includes: Examination of the Patient, Discharge Planning, Medication Reconciliation, Communication With Other Providers and Other Discharge Plan Discharge Items Patient Disposition: Home - Self-Care Reason For Visit: CHF Discharge Diagnosis: Acute on chronic diastolic heart failure Activity: Resume your previous activity Non-emergency contact: Primary Care Provider Call non-emergency contact if: you have any medication questions and your symptoms worsen Follow-up/Referrals: Arlet Hernandez DO [Primary Care Provider] - Diet: Regular Addtl Attending Provider Instructions: You were admitted to the hospital with acute on chronic heart failure. Cardiology evaluated you during the hospitalization. Recommended following changes in the medication: 1) decrease amlodipine to 5 mg once daily. A new prescription has been sent to your pharmacy 2) start on spironolactone 12.5 mg once daily and torsemide 20 mg once daily. An appointment will be set up with a primary care doctor for you for sometime next week. Please obtain repeat basic metabolic panel to check on your kidney function during the visit. Also, you will have cardiology follow-up in 1 to 4 weeks. Pending Studies at Discharge: No Stand-Alone Forms: My [employer], Smoking Cessation Medications and DC Order Prescriptions: New amlodipine [Norvasc] 5 mg Tablet 5 mg PO QAM Qty: 30 0RF spironolactone 25 mg Tablet 12.5 mg PO DAILY Qty: 30 0RF torsemide 20 mg tablet 20 mg PO DAILY Qty: 30 0RF Continued Eliquis 5 mg tablet 5 mg PO BID metoprolol succinate 25 mg tablet extended release 24 hr 37.5 mg PO BID pantoprazole 40 mg Tablet,Delayed Release (Dr/Ec) 40 mg PO BID Qty: 60 0RF alendronate 70 mg tablet 70 mg PO WK Rx Instructions: TAKES ON SUNDAYS lisinopril 40 mg tablet 40 mg PO QAM fluticasone propionate 50 mcg/actuation spray,suspension 2 spray INTRANASAL QAM PRN (Reason: Allergy Symptoms) fenofibrate nanocrystallized 145 mg tablet 145 mg PO QDD cholecalciferol (vitamin D3) [Vitamin D3] 125 mcg (5,000 unit) Tablet 125 mcg PO HS Rx Instructions: PER GMG SHOULD BE 2,000 UNITS. potassium chloride 20 mEq tablet extended release 20 meq PO QDL amoxicillin 500 mg tablet 2,000 mg PO DIRECTED PRN (Reason: PRIOR TO PROCEDURES) Rx Instructions: 4 tabs 1 hour prior to procedure ferrous sulfate 325 mg (65 mg iron) tablet 325 mg PO BID Discontinued amlodipine 10 mg tablet 10 mg PO QAM Discharge Orders: Discharge Order- CHF (Routine); Ordered 04/21/23 Ordered By: Michel Crouch Admission Data Admit Date/Time: 04/19/23 14:48 Attending Provider: Michel Crouch Admit Provider: Daren Matta Primary Care Provider: Arlet Hernandez Other Providers: Daren Matta ; Marcos Huang Other Interventions: Discharge Summary Assessment (RN) Last Done: 04/21/23 14:01
[2023-04-22] MEDS ORDERED: TORSEMIDE 10 MG TAB PO SCH (09:00)
== END 2023-04-21 15:23 | disposition home or self-care (01) | DRG 291 ==
LOC: ED 11:38 → EDINP 14:48 → SUATTDRO 14:48 → EDINP 17:33 → 4W 19:48